=== PATIENT | female | born 1925 | race Caucasian/White ===

== ENCOUNTER 2016-09-20 09:08 | Emergency (ER) | payer MEDICARE ==
[2016-09-20 09:14] VITALS: BP 133/53
--- NOTE | 2016-09-20 10:57 | ED ---
Skin Complaint - HPI Summary HPI Summary: 89 female presents accompanied by daughter and aide with complaints of w laeration on her right lower leg that she sustained yesterday (>24hours) afternoon while trying to get into a car. Did not fall and did not hit head. Patient was not aware at the time until a few hours after when she got home and noticed blood on her shoe. Laceration was dressed however, it would not stop bleeding until this morning. Patient is on a blood thinner and was recently told her platelet count was low on her last CBC. Patient denies any pain and states it has just been oozing, and appeared to stop bleeding. Denies lightheadedness, dizziness, numbness/tingling, loss of sensation or ROM, headache, difficulty breathing and chest pain. She has no other complaints at this time except the lower right leg laceration. Denies swelling, discharge and fever/chills. - History of Current Complaint Chief Complaint: EDLacSutureRecheck Time Seen by Provider: 09/20/16 09:26 Stated Complaint: RT LEG LAC Hx Obtained From: Patient, Family/Blue Line Trimmer - daughter, aide Onset/Duration: Started Days Ago, Traumatic Skin Exposure Onset/Duration: Days Ago Timing: Constant Onset Severity: Mild Current Severity: Mild Pain Intensity: 0 Pain Scale Used: 0-10 Numeric Skin Location: Leg Aggravating Symptom(s): Touch Alleviating Symptom(s): Treatment SPECIAL TAX AUDITOR: - dressing wound Associated Signs & Symptoms: Negative - Additional Pertinent History Primary Care Physician: [id number] - Allergy/Home Medications Allergies/Adverse Reactions: Allergies Allergy/AdvReac Type Severity Reaction Status Date / Time Adhesive Tape Allergy Rash And Verified 02/20/16 20:59 Itching Cephalexin [From Keflex] Allergy Rash Verified 02/20/16 20:59 Iodine Allergy Rash Verified 02/20/16 20:59 Sulfa Drugs Allergy Unknown Verified 02/20/16 20:59 Reaction Details PMH/Surg Hx/FS Hx/Imm Hx Endocrine/Hematology History: Reports: Hx Diabetes, Hx Thyroid Disease - hypothyroid, levothyroxine am, Hx Anemia Cardiovascular History: Reports: Hx Angina, Hx Congestive Heart Failure, Hx Coronary Artery Disease, Hx Hypercholesterolemia, Hx Pacemaker/ICD, Hx Syncope, Other Cardiovascular Problems/Disorders Denies: Hx Hypotension, Hx Hypertension Respiratory History: Reports: Hx Asthma, Hx Pulmonary Embolism, Hx Seasonal Allergies Denies: Hx Chronic Obstructive Pulmonary Disease (COPD) GI History: Reports: Hx Gall Bladder Disease - Cholecystectomy, Hx Gastroesophageal Reflux Disease, Hx Gastrointestinal Bleed, Hx Ulcer Comment Only: Other GI Disorders - GASTRIC ULCER W/ HEMORRHAGE History: Reports: Hx Chronic Renal Failure, Other Problems/Disorders - LOW GFR RENAL INSUFFIENCY Denies: Hx Dialysis Musculoskeletal History: Reports: Hx Arthritis, Hx Osteoporosis, Other Musculoskeletal History - osteoarthritis Sensory History: Reports: Hx Contacts or Glasses, Hx Vision Problem, Hx Hearing Aid - hearing aides sent home with family, Hx Hearing Problem Opthamlomology History: Reports: Hx Contacts or Glasses, Hx Vision Problem Neurological History: Reports: Hx Dementia, Hx Headaches, Hx Migraine, Hx Transient Ischemic Attacks (TIA) Denies: Hx Developmental Delay, Hx Nerve Disease, Hx Seizures, Hx Spinal Cord Injury, Other Neuro Impairments/Disorders Psychiatric History: Denies: Hx Anxiety - Cancer History Hx Chemotherapy: No Hx Radiation Therapy: No - Surgical History Surgery Procedure, Year, and Place: bilateral knee replacement, breast reduction , stent placement, pacer placement, cholecystecomy, "stomach" surgery, Hx Anesthesia Reactions: No Infectious Disease History: No Infectious Disease History: Reports: Hx Shingles - 20 yrs ago Denies: Hx Clostridium Difficile, Hx Hepatitis, Hx Human Immunodeficiency Virus (HIV), Hx Tuberculosis, Traveled Outside the [place] in Last 30 Days - Family History Known Family History: Positive: Diabetes - Social History Alcohol Use: None Hx Substance Use: No Substance Use Type: Reports: None Hx Tobacco Use: No Smoking Status (MU): Never Smoked Tobacco Review of Systems Constitutional: Negative Cardiovascular: Negative Respiratory: Negative Gastrointestinal: Negative Musculoskeletal: Negative Positive: Other - laceration lower right leg Neurological: Negative Psychological: Normal All Other Systems Reviewed And Are Negative: Yes Physical Exam Triage Information Reviewed: Yes Vital Signs On Initial Exam: Initial Vitals Temp Pulse Resp BP Pulse Ox 97.1 F 81 18 133/53 97 09/20/16 09:09 09/20/16 09:09 09/20/16 09:09 09/20/16 09:09 09/20/16 09:09 Vital Signs Reviewed: Yes Appearance: Positive: Well-Appearing, No Pain Distress, Well-Nourished Skin: Positive: Warm, Skin Color Reflects Adequate Perfusion, Dry, Other - 5 cm long by 3 cm wide and 1cm deep skin avulsion on lower right distal leg, with skin flap still intact. erythematous without active bleeding. no tedon or fascia layers noted. no other avulsion or laceration noted. no discharge, or swelling, warm to touch.no obious defomity, bony tenderness or ecchymosis. Head/Face: Positive: Normal Head/Face Inspection Eyes: Positive: Normal ENT: Positive: Normal ENT inspection, Hearing grossly normal Neck: Positive: Supple, Nontender Respiratory/Lung Sounds: Positive: Clear to Auscultation, Breath Sounds Present Cardiovascular: Positive: Normal, RRR, Pulses are Symmetrical in both Upper and Lower Extremities - 2+ bilateraly pedal and radial. Negative: Leg Edema Left, Leg Edema Right Abdomen Description: Positive: Nontender Bowel Sounds: Positive: Present Musculoskeletal: Positive: Normal, Strength/ROM Intact, Pain @ - lower right leg skin avulsion on palpation. Negative: Limited @, Interruption @, Edema Left , Edema Right Neurological: Positive: Normal, Sensory/Motor Intact - sensation intact, Alert, Oriented to Person Place, Time, Reflexes Intact, NV Bundle Intact Distally, Normal Gait Procedures - Laceration/Wound Repair 1 Location: lower extremity - right distal leg Description: Irregular - skin avulsion in triangle shape Length, Depth and Shape: 5.cm long, 1cm deep, 3cm wide, skin avulsion Betadine Prep?: No Irrigated w/ Saline (ccs): 100 Laceration/Wound Explored: clean, no foreign body removed Closure: SteriStrips - and xeroform, dressed with telfa and ABD pad Sterile Dressing Applied?: Yes Diagnostics - Vital Signs Vital Signs Temp Pulse Resp BP Pulse Ox 09/20/16 09:09 97.1 F 81 18 133/53 97 - Laboratory Lab Statement: Any lab studies that have been ordered have been reviewed, and results considered in the medical decision making process. Course/Dx - Course Course Of Treatment: patient denied having her blood checked at this time. was advised to follow up with her PCP about low platelet count and chornic issues. Patient's tetanus UTD, after checking with PCP. Skin avulsion irrigated, steri- stripped and xeroform, telfa and ABD pad applied. dressed without complication. minimal to no bleeding from site. follow up. aware to return if bleeding recurs. aware of signs and symptoms to be aware of for infection and that she may benefit from going to a wound clinic if it does not appear to be healing properly. - Differential Diagnoses - Skin Complaint Differential Diagnoses: Cellulitis, Other - Diagnoses Provider Diagnoses: Avulsion of skin of right lower leg Discharge - Discharge Plan Condition: Stable Disposition: HOME Patient Education Materials: Skin Avulsion (ED) Referrals: Fawad Cho MD [Primary Care Provider] - Additional Instructions: Leave dressing on for 48 hours. Do not take steri strips off, let them come off on their own. Do not get area wet for 48 hours. Keep clean and dry. You may want to keep the area dressed after the original dressing is taken off. If bleeding recurs or soaks through current dressing please return or seek medical attention. Be sure to talk with her PCP about recent blood work and managing blood thinner. Watch for signs and symptoms of infection such as redness, discharge, swelling, fever/chills. If she starts to feel light headed, weak, dizzy or faint please seek medical attention promptly.
== END 2016-09-20 11:54 | disposition home or self-care (01) ==
LOC: ED 09:08
DX: S81.801A Unspecified open wound, right lower leg, initial encounter (principal); W22.8XXA Striking against or struck by other objects, initial encounter; Y93.9 Activity, unspecified; Y92.89 Other specified places as the place of occurrence of the external cause
CPT/HCPCS: 99281

== ENCOUNTER 2016-10-06 12:33 | Emergency (ER) | payer MEDICARE ==
[2016-10-06 13:56] LABS: Hematocrit 44 % (35-47); Hemoglobin 14.3 g/dl (12.0-16.0); Mean Corpuscular HGB Conc 33 g/dl (31-36); Mean Corpuscular Hemoglobin 30 pg (27-31); Mean Corpuscular Volume 92 fL (80-97); Mean Platelet Volume 8 um3 (7.4-10.4); Red Blood Count 4.72 10^6/ul (4.0-5.4); Red Cell Distribution Width 15 % (10.5-15); White Blood Count 7.1 10^3/ul (3.5-10.8)
[2016-10-06 14:15] LABS: Albumin 3.3 g/dL (3.2-5.2); BUN/Creatinine Ratio 23.6 (8-20); C Reactive Protein 12.96 mg/L (< 5.00); EGFR African American 52.9 (>60); EGFR Non-African American 41.1 (>60); Globulin 3.7 g/dL (2-4); Total Bilirubin 0.4 mg/dL (0.2-1.0)
--- NOTE | 2016-10-06 16:04 | RAD ---
Indication: Left-sided abdominal pain. CT of the abdomen and pelvis was performed without oral or IV contrast administration. Coronal and sagittal reconstructed images were obtained. Lung bases demonstrate no pleural fluid, nodules or masses. Heart is enlarged without evidence of pericardial effusion. Pacemaker leads are in place. The liver is normal in size. No focal lesions are noted. Patient is status post cholecystectomy. The spleen is normal in size. The pancreas demonstrates no mass or pancreatic duct dilatation. Patient is status post cholecystectomy. Bilateral adrenal hyperplasia is noted. No hydronephrosis of either kidney is noted. Atherosclerotic aorta is noted. Superior mesenteric artery is otherwise unremarkable. No dilated loops of bowel are noted. There is posterior abdominal wall hernia containing perinephric fat. Atherosclerotic aorta is noted. No dilated loops of bowel are noted. The urinary bladder is otherwise unremarkable. The bony structures are grossly unremarkable. Multilevel degenerative disc disease is noted. Overall no significant change is noted since February 20, 2016. IMPRESSION: Postsurgical change in the splenic hilum and gallbladder fossa. Patient is status post gastric bypass surgery. Right-sided superior lumbar triangle hernia containing fat and right kidney, unchanged since previous exam. Distended urinary bladder.
[2016-10-06 16:25] LABS: Potassium 4.6 mmol/L (3.5-5.0)
[2016-10-06 17:05] VITALS: BP 142/79
--- NOTE | 2016-10-06 22:20 | ED ---
Damaris Sims [place], scribed for Lamont Cabral MD on 10/06/16 at 1339 . Abdominal Pain/Female - HPI Summary HPI Summary: Patient is a 89 y/o female who presents to the ED with lower abd pain since last night. She reports a BM today, but denies diarrhea or tarry stool. She also denies nausea, vomiting, or problems urinating. Her caregiver present at bedside reports that pt has eaten breakfast and lunch and that she has been experiencing increased upper and lower gas. She also states pt has an extended abd on the right side with pain upon palpation, but pt also has a hernia on that side. Pt reports unspecified SHx of abd surgery. - History of Current Complaint Chief Complaint: EDAbdPain Stated Complaint: ABDOMINAL PAIN Time Seen by Provider: 10/06/16 13:26 Hx Obtained From: Patient, Family/Chemicals Fermentation Operator Onset/Duration: Gradual Onset, Lasting Days, Still Present Timing: Constant Severity Initially: Moderate Severity Currently: Moderate Pain Intensity: 5 Pain Scale Used: 0-10 Numeric Location: Discrete At: LUQ, Discrete At: LLQ Radiates: No Aggravating Factor(s): Nothing Alleviating Factor(s): Nothing Associated Signs and Symptoms: Positive: Other: - No tarry stool. Upper and lower gas.. Negative: Urinary Symptoms, Nausea, Vomiting, Diarrhea Allergies/Adverse Reactions: Allergies Allergy/AdvReac Type Severity Reaction Status Date / Time Adhesive Tape Allergy Rash And Verified 10/06/16 12:38 Itching Cephalexin [From Keflex] Allergy Rash Verified 10/06/16 12:38 Iodine Allergy Rash Verified 10/06/16 12:38 Sulfa Drugs Allergy Unknown Verified 10/06/16 12:38 Reaction Details Home Medications: Home Medications Amoxicillin CAP* [Amoxicillin 500 MG CAP*] 500 mg PO BID 10/06/16 [History Confirmed 10/06/16] Gabapentin TAB(NF) [Neurontin 600 mg TAB(NF)] 1,200 mg PO BEDTIME 10/06/16 [ History Confirmed 10/06/16] Gabapentin TAB(NF) [Neurontin 600 mg TAB(NF)] 600 mg PO BID 10/06/16 [History Confirmed 10/06/16] Levothyroxine TAB* [Synthroid TAB*] 150 mcg PO DAILY 10/06/16 [History Confirmed 10/06/16] Lidocaine PATCH 5%* [Lidoderm 5% Patch*] 1 patch TRANSDERM DAILY 10/06/16 [ History Confirmed 10/06/16] Nystatin TOP POWDER* 1 applic TOPICAL BID 10/06/16 [History Confirmed 10/06/16] Polyethylene Glycol 3350* [Miralax*] 17 gm PO DAILY PRN 10/06/16 [History Confirmed 10/06/16] Simvastatin TAB(NF) [Zocor(NF)] 20 mg PO BEDTIME 10/06/16 [History Confirmed 06/12] PMH/Surg Hx/FS Hx/Imm Hx Endocrine/Hematology History: Reports: Hx Diabetes, Hx Thyroid Disease - hypothyroid, levothyroxine am, Hx Anemia Cardiovascular History: Reports: Hx Angina, Hx Congestive Heart Failure, Hx Coronary Artery Disease, Hx Hypercholesterolemia, Hx Pacemaker/ICD, Hx Syncope, Other Cardiovascular Problems/Disorders Denies: Hx Hypotension, Hx Hypertension Respiratory History: Reports: Hx Asthma, Hx Pulmonary Embolism, Hx Seasonal Allergies Denies: Hx Chronic Obstructive Pulmonary Disease (COPD) GI History: Reports: Hx Gall Bladder Disease - Cholecystectomy, Hx Gastroesophageal Reflux Disease, Hx Gastrointestinal Bleed, Hx Ulcer Comment Only: Other GI Disorders - GASTRIC ULCER W/ HEMORRHAGE History: Reports: Hx Chronic Renal Failure, Other Problems/Disorders - LOW GFR RENAL INSUFFIENCY Denies: Hx Dialysis Musculoskeletal History: Reports: Hx Arthritis, Hx Osteoporosis, Other Musculoskeletal History - osteoarthritis Sensory History: Reports: Hx Contacts or Glasses, Hx Vision Problem, Hx Hearing Aid - hearing aides sent home with family, Hx Hearing Problem Opthamlomology History: Reports: Hx Contacts or Glasses, Hx Vision Problem Neurological History: Reports: Hx Dementia, Hx Headaches, Hx Migraine, Hx Transient Ischemic Attacks (TIA) Denies: Hx Developmental Delay, Hx Nerve Disease, Hx Seizures, Hx Spinal Cord Injury, Other Neuro Impairments/Disorders Psychiatric History: Denies: Hx Anxiety - Cancer History Hx Chemotherapy: No Hx Radiation Therapy: No - Surgical History Surgery Procedure, Year, and Place: bilateral knee replacement, breast reduction , stent placement, pacer placement, cholecystecomy, "stomach" surgery, Hx Anesthesia Reactions: No Infectious Disease History: No Infectious Disease History: Reports: Hx Shingles - 20 yrs ago Denies: Hx Clostridium Difficile, Hx Hepatitis, Hx Human Immunodeficiency Virus (HIV), Hx Tuberculosis, Traveled Outside the [place] in Last 30 Days - Family History Known Family History: Positive: Diabetes - Social History Alcohol Use: None Hx Substance Use: No Substance Use Type: Reports: None Hx Tobacco Use: No Smoking Status (MU): Never Smoked Tobacco Review of Systems Negative: Fever Positive: Abdominal Pain - Lower. . Negative: Vomiting, Diarrhea, Nausea Positive: other - No tarry stool. Increased upper and lower gas. Positive: Other - Constant pain in right hand for 2-3 days. All Other Systems Reviewed And Are Negative: Yes Physical Exam Triage Information Reviewed: Yes Vital Signs On Initial Exam: Initial Vitals Temp Pulse Resp BP Pulse Ox 98.1 F 87 16 133/56 100 10/06/16 12:38 10/06/16 12:38 10/06/16 12:38 10/06/16 12:38 10/06/16 12:38 Vital Signs Reviewed: Yes Appearance: Positive: Well-Appearing, No Pain Distress Skin: Positive: Warm, Skin Color Reflects Adequate Perfusion, Dry Head/Face: Positive: Normal Head/Face Inspection Eyes: Positive: Normal ENT: Positive: Other - DMM. Neck: Positive: Supple, Nontender Respiratory/Lung Sounds: Positive: Clear to Auscultation, Breath Sounds Present Cardiovascular: Positive: RRR Abdomen Description: Positive: Other: - Mildly tender on left more than right, diffusely. Bowel Sounds: Positive: Hyperactive Musculoskeletal: Positive: Normal Neurological: Positive: Normal Psychiatric: Positive: Normal, Affect/Mood Appropriate Diagnostics - Vital Signs Vital Signs Temp Pulse Resp BP Pulse Ox 10/06/16 12:38 98.1 F 87 16 133/56 100 - Laboratory Lab Results: Lab Results 10/06/16 10/06/16 10/06/16 Range/Units 13:45 13:45 13:45 WBC 7.1 (3.5-10.8) 10^3/ul RBC 4.72 (4.0-5.4) 10^6/ul Hgb 14.3 (12.0-16.0) g/dl Hct 44 (35-47) % MCV 92 (80-97) fL MCH 30 (27-31) pg MCHC 33 (31-36) g/dl RDW 15 (10.5-15) % Plt Count 141 L (150-450) 10^3/ul MPV 8 (7.4-10.4) um3 Neut % (Auto) 73.8 (38-83) % Lymph % (Auto) 16.1 L (25-47) % [place] % (Auto) 7.0 (1-9) % Eos % (Auto) 2.5 (0-6) % Baso % (Auto) 0.6 (0-2) % Absolute Neuts (auto) 5.2 (1.5-7.7) 10^3/ul Absolute Lymphs (auto) 1.1 (1.0-4.8) 10^3/ul Absolute Monos (auto) 0.5 (0-0.8) 10^3/ul Absolute Eos (auto) 0.2 (0-0.6) 10^3/ul Absolute Basos (auto) 0 (0-0.2) 10^3/ul Absolute Nucleated RBC 0.01 10^3/ul Nucleated RBC % 0.1 Sodium 136 (133-145) mmol/L Potassium 4.6 (3.5-5.0) mmol/L Chloride 102 (101-111) mmol/L Carbon Dioxide 28 (22-32) mmol/L Anion Gap 6 (2-11) mmol/L BUN 29 H (6-24) mg/dL Creatinine 1.23 H (0.51-0.95) mg/dL Est GFR ( Amer) 52.9 (>60) Est GFR (Non-Af Amer) 41.1 (>60) BUN/Creatinine Ratio 23.6 H (8-20) Glucose 151 H (70-100) mg/dL Lactic Acid 1.5 (0.5-2.0) mmol/L Calcium 10.0 (8.6-10.3) mg/dL Total Bilirubin 0.40 (0.2-1.0) mg/dL AST 25 (13-39) U/L ALT 11 (7-52) U/L Alkaline Phosphatase 86 (34-104) U/L C-Reactive Protein 12.96 H (< 5.00) mg/L Total Protein 7.0 (6.4-8.9) g/dL Albumin 3.3 (3.2-5.2) g/dL Globulin 3.7 (2-4) g/dL Albumin/Globulin Ratio 0.9 L (1-3) Lipase 40 (11.0-82.0) U/L Result Diagrams: 10/06/16 13:45 10/06/16 13:45 Lab Statement: Any lab studies that have been ordered have been reviewed, and results considered in the medical decision making process. - CT ABD/PELVIS CT Interpretation Completed By: Radiologist - Lung bases demonstrate no pleural fluid, nodules or masses. Heart is enlarged without evidence of pericardial effusion. Pacemaker leads are in place. The liver is normal in size. No focal lesions are noted. Patient is status post cholecystectomy. The spleen is normal in size. The pancreas demonstrates no mass or pancreatic duct dilatation. Patient is status post cholecystectomy. Bilateral adrenal hyperplasia is noted. No hydronephrosis of either kidney is noted. Atherosclerotic aorta is noted. Superior mesenteric artery is otherwise unremarkable. No dilated loops of bowel are noted. There is posterior abdominal wall hernia containing perinephric fat. Atherosclerotic aorta is noted. No dilated loops of bowel are noted. The urinary bladder is otherwise unremarkable. The bony structures are grossly unremarkable. Multilevel degenerative disc disease is noted. Overall no significant change is noted since February 20, 2016. Postsurgical change in the splenic hilum and gallbladder fossa. Patient is status post gastric bypass surgery. Right-sided superior lumbar triangle hernia containing fat and right kidney, unchanged since previous exam. Re-Evaluation - Re-Evaluation First Eval Re-Evaluation Time: 16:43 Abdominal Pain Fem Course/Dx - Course Course Of Treatment: Ms. Perla presented with some vague, diffuse lowere abdominal pain. Her labs were OK and she was noted on CT to have a distened bladder. When I went in to ask her about it, she reported that she had urinated about 10 minutes prior. A bladder scan at that time showed about 300 cc's. Her pain had at that point completely resolved and she was nontender. I don't think she needs a catheter at this point but she will need F/U. - Diagnoses Provider Diagnoses: Urinary retention Discharge - Discharge Plan Condition: Stable Disposition: HOME Patient Education Materials: Acute Urinary Retention in Women (ED) Referrals: Fawad Cho MD [Primary Care Provider] - Additional Instructions: Follow up with PCP. The documentation as recorded by the Damaris page [place] accurately reflects the service I personally performed and the decisions made by me, Lamont Cabral MD.
== END 2016-10-06 17:06 | disposition home or self-care (01) ==
LOC: ED 12:33
DX: R33.9 Retention of urine, unspecified (principal); E11.9 Type 2 diabetes mellitus without complications; E03.9 Hypothyroidism, unspecified; J45.909 Unspecified asthma, uncomplicated; K46.9 Unspecified abdominal hernia without obstruction or gangrene; Z88.2 Allergy status to sulfonamides
CPT/HCPCS: 36415; 74176; 80053; 83605; 83690; 85025; 86140; 99284

== ENCOUNTER 2016-11-23 18:49 | Emergency (ER) | payer BC ==
--- NOTE | 2016-11-23 19:52 | RAD ---
INDICATION: Fall COMPARISON: June 20, 2015 TECHNIQUE: PA and lateral dual-energy views were obtained. FINDINGS: Bones/Soft Tissues: There are no acute bony findings. There is a left-sided cardiac pacemaker. Cardiomediastinal: The cardiomediastinal silhouette is unchanged. There is right paratracheal prominence which may be related to ectatic vasculature or to the thyroid. Lungs: There are no infiltrates. Pleura: There are no pleural effusions. Other: There are clips in the epigastric region and left upper quadrant IMPRESSION: NO ACTIVE DISEASE.
[2016-11-23 20:45] LABS: Hematocrit 43 % (35-47); Hemoglobin 14.2 g/dl (12.0-16.0); Mean Corpuscular HGB Conc 33 g/dl (31-36); Mean Corpuscular Hemoglobin 30 pg (27-31); Mean Corpuscular Volume 93 fL (80-97); Mean Platelet Volume 8 um3 (7.4-10.4); Red Blood Count 4.67 10^6/ul (4.0-5.4); Red Cell Distribution Width 15 % (10.5-15); White Blood Count 7.1 10^3/ul (3.5-10.8)
[2016-11-23 20:59] LABS: BUN/Creatinine Ratio 23.9 (8-20); EGFR African American 47.9 (>60); EGFR Non-African American 37.2 (>60); Potassium 4.6 mmol/L (3.5-5.0)
[2016-11-23 21:01] LABS: Troponin I 0.01 ng/mL (<0.04)
--- NOTE | 2016-11-23 22:28 | ED ---
dhara Sims Timothy, scribed for Kenn Hannah MD on 11/23/16 at 1927 . Dizziness - HPI Summary HPI Summary: Jasmin Perla is an 89 yo female presenting to [facility] with 9/10 pain S/P a mechanical fall at 1600 today. Pt states she experienced dizziness all day in addition to MERCADO radiating down her neck and shoulder. She states she was getting into bed when she lost her balance and fell. She denies any head trauma. She also c/o generalized body aches. She normally uses a walker to get around. Her MHx includes hypothyroidism, Afib, Pacemaker, CAD, CHF, coronary stent, HLD, migraine, CVA, TIA, dementia, asthma, PE, seasonal allergies, GERD, ulcer, gall bladder disease, GI bleed, chronic renal failure (low GFR renal insufficiency), arthritis, osteoperosis, DM, anemia, shingles 20 years ago. - History Of Current Complaint Stated Complaint: FALL Time Seen by Provider: 11/23/16 19:23 Hx Obtained From: Patient Onset/Duration: Unknown Timing: Constant Severity Initially: Moderate Severity Currently: Moderate Character: Dizzy Associated Signs And Symptoms: Positive: Other: - mechanical fall, MERCADO, neck, left shoulder pain, myalgia - Allergies/Home Medications Allergies/Adverse Reactions: Allergies Allergy/AdvReac Type Severity Reaction Status Date / Time Adhesive Tape Allergy Rash And Verified 10/06/16 12:38 Itching Cephalexin [From Keflex] Allergy Rash Verified 10/06/16 12:38 Iodine Allergy Rash Verified 10/06/16 12:38 Sulfa Drugs Allergy Unknown Verified 10/06/16 12:38 Reaction Details PMH/Surg Hx/FS Hx/Imm Hx Endocrine/Hematology History: Reports: Hx Diabetes, Hx Thyroid Disease - hypothyroid, levothyroxine am, Hx Anemia Cardiovascular History: Reports: Hx Angina, Hx Congestive Heart Failure, Hx Coronary Artery Disease, Hx Hypercholesterolemia, Hx Pacemaker/ICD, Hx Syncope, Other Cardiovascular Problems/Disorders Denies: Hx Hypotension, Hx Hypertension Respiratory History: Reports: Hx Asthma, Hx Pulmonary Embolism, Hx Seasonal Allergies Denies: Hx Chronic Obstructive Pulmonary Disease (COPD) GI History: Reports: Hx Gall Bladder Disease - Cholecystectomy, Hx Gastroesophageal Reflux Disease, Hx Gastrointestinal Bleed, Hx Ulcer Comment Only: Other GI Disorders - GASTRIC ULCER W/ HEMORRHAGE History: Reports: Hx Chronic Renal Failure, Other Problems/Disorders - LOW GFR RENAL INSUFFIENCY Denies: Hx Dialysis Musculoskeletal History: Reports: Hx Arthritis, Hx Osteoporosis, Other Musculoskeletal History - osteoarthritis Sensory History: Reports: Hx Contacts or Glasses, Hx Vision Problem, Hx Hearing Aid - hearing aides sent home with family, Hx Hearing Problem Opthamlomology History: Reports: Hx Contacts or Glasses, Hx Vision Problem Neurological History: Reports: Hx Dementia, Hx Headaches, Hx Migraine, Hx Transient Ischemic Attacks (TIA) Denies: Hx Developmental Delay, Hx Nerve Disease, Hx Seizures, Hx Spinal Cord Injury, Other Neuro Impairments/Disorders Psychiatric History: Denies: Hx Anxiety - Cancer History Hx Chemotherapy: No Hx Radiation Therapy: No - Surgical History Surgery Procedure, Year, and Place: bilateral knee replacement, breast reduction , stent placement, pacer placement, cholecystecomy, "stomach" surgery, Hx Anesthesia Reactions: No Infectious Disease History: No Infectious Disease History: Reports: Hx Shingles - 20 yrs ago Denies: Hx Clostridium Difficile, Hx Hepatitis, Hx Human Immunodeficiency Virus (HIV), Hx Tuberculosis, Traveled Outside the [place] in Last 30 Days - Family History Known Family History: Positive: Cardiac Disease, Hypertension, Diabetes - Social History Alcohol Use: None Hx Substance Use: No Substance Use Type: Reports: None Hx Tobacco Use: No Smoking Status (MU): Never Smoked Tobacco Review of Systems Constitutional: Negative Eyes: Negative ENT: Negative Cardiovascular: Negative Respiratory: Negative Gastrointestinal: Negative Genitourinary: Negative Positive: Myalgia Skin: Negative Neurological: Other - dizziness Positive: Headache - radiating to left shoulder and neck Psychological: Normal All Other Systems Reviewed And Are Negative: Yes Physical Exam Triage Information Reviewed: Yes Vital Signs On Initial Exam: Initial Vitals Temp Pulse Resp BP Pulse Ox 98.3 F 83 20 147/75 96 11/23/16 19:15 11/23/16 19:15 11/23/16 19:15 11/23/16 19:15 11/23/16 19:15 Vital Signs Reviewed: Yes Appearance: Positive: Well-Appearing, No Pain Distress Skin: Positive: Warm Head/Face: Positive: Normal Head/Face Inspection Eyes: Positive: EOMI, PROSPER, Conjunctiva Clear ENT: Positive: Hearing grossly normal Neck: Positive: Supple, Nontender Respiratory/Lung Sounds: Positive: Clear to Auscultation, Breath Sounds Present Cardiovascular: Positive: RRR Abdomen Description: Positive: Nontender, Soft Bowel Sounds: Positive: Present Musculoskeletal: Positive: Strength/ROM Intact Neurological: Positive: Alert, Oriented to Person Place, Time Psychiatric: Positive: Affect/Mood Appropriate Diagnostics - Vital Signs Vital Signs Temp Pulse Resp BP Pulse Ox 11/23/16 19:15 98.3 F 83 20 147/75 96 - Laboratory Lab Results: Lab Results 11/23/16 11/23/16 Range/Units 20:37 20:37 WBC 7.1 (3.5-10.8) 10^3/ul RBC 4.67 (4.0-5.4) 10^6/ul Hgb 14.2 (12.0-16.0) g/dl Hct 43 (35-47) % MCV 93 (80-97) fL MCH 30 (27-31) pg MCHC 33 (31-36) g/dl RDW 15 (10.5-15) % Plt Count 112 L (150-450) 10^3/ul MPV 8 (7.4-10.4) um3 Neut % (Auto) 69.7 (38-83) % Lymph % (Auto) 16.9 L (25-47) % Donley % (Auto) 9.5 H (1-9) % Eos % (Auto) 2.7 (0-6) % Baso % (Auto) 1.2 (0-2) % Absolute Neuts (auto) 5.0 (1.5-7.7) 10^3/ul Absolute Lymphs (auto) 1.2 (1.0-4.8) 10^3/ul Absolute Monos (auto) 0.7 (0-0.8) 10^3/ul Absolute Eos (auto) 0.2 (0-0.6) 10^3/ul Absolute Basos (auto) 0.1 (0-0.2) 10^3/ul Absolute Nucleated RBC 0.01 10^3/ul Nucleated RBC % 0.1 Sodium 137 (133-145) mmol/L Potassium 4.6 (3.5-5.0) mmol/L Chloride 102 (101-111) mmol/L Carbon Dioxide 32 (22-32) mmol/L Anion Gap 3 (2-11) mmol/L BUN 32 H (6-24) mg/dL Creatinine 1.34 H (0.51-0.95) mg/dL Est GFR ( Amer) 47.9 (>60) Est GFR (Non-Af Amer) 37.2 (>60) BUN/Creatinine Ratio 23.9 H (8-20) Glucose 137 H (70-100) mg/dL Calcium 10.0 (8.6-10.3) mg/dL Troponin I 0.01 (<0.04) ng/mL Result Diagrams: 11/23/16 20:37 11/23/16 20:37 Lab Statement: Any lab studies that have been ordered have been reviewed, and results considered in the medical decision making process. - Radiology CXR Xray Interpretation: No Acute Changes - IMPRESSION: NO ACTIVE DISEASE. Radiology Interpretation Completed By: Radiologist - EKG 1920 Cardiac Rate: NL - 83 BPM EKG Interpretation: Afib @ 83 BPM, moderated ventrivular response Dizzy Course/Dx - Course Assessment/Plan: Jasmin Perla is an 89 yo female presenting to [facility] with 9/ 10 pain S/P a mechanical fall at 1600 today, with MERCADO radiating to her neck and left shoulder and dizziness since this morning. Her EKG suggests Afib and moderated ventricular response. Her CXR suggests no active disease. After clinical examination and review of her imaging and lab studies, she will be discharged home with dizziness with appropriate instructions. - Diagnoses Provider Diagnoses: Dizziness Discharge - Discharge Plan Condition: Improved Disposition: HOME Patient Education Materials: Dizziness (ED) Referrals: Fawad Cho MD [Primary Care Provider] - 2 Days Additional Instructions: Please follow up with your primary care physician regarding your visit to the emergency department today. Return to the emergency department with any new or recurring symptoms. The documentation as recorded by the dhara page Timothy accurately reflects the service I personally performed and the decisions made by me, Kenn Hannah MD.
[2016-11-23 22:55] VITALS: BP 155/69
== END 2016-11-24 00:05 | disposition home or self-care (01) ==
LOC: ED 18:49
DX: R42 Dizziness and giddiness (principal); E03.9 Hypothyroidism, unspecified; J44.9 Chronic obstructive pulmonary disease, unspecified; F03.90 Unspecified dementia, unspecified severity, without behavioral disturbance, psychotic disturbance, mood disturbance, and anxiety; W19.XXXA Unspecified fall, initial encounter; I48.91 Unspecified atrial fibrillation; Z95.0 Presence of cardiac pacemaker; I50.9 Heart failure, unspecified; E78.5 Hyperlipidemia, unspecified; Z88.2 Allergy status to sulfonamides; Z86.73 Personal history of transient ischemic attack (TIA), and cerebral infarction without residual deficits
CPT/HCPCS: 36415; 71020; 80048; 84484; 85025; 93005; 99283

== ENCOUNTER 2017-01-09 22:05 | Emergency (ER) | payer MEDICARE, BC ==
[2017-01-09] MEDS ORDERED: NS 0.9% 1000 ML* 1,000 ML IV ONE (22:28)
[2017-01-09 22:47] LABS: Hematocrit 42 % (35-47); Hemoglobin 13.9 g/dl (12.0-16.0); Mean Corpuscular HGB Conc 33 g/dl (31-36); Mean Corpuscular Hemoglobin 31 pg (27-31); Mean Corpuscular Volume 95 fL (80-97); Mean Platelet Volume 8 um3 (7.4-10.4); Red Blood Count 4.46 10^6/ul (4.0-5.4); Red Cell Distribution Width 15 % (10.5-15); White Blood Count 7.1 10^3/ul (3.5-10.8)
--- NOTE | 2017-01-09 22:54 | ED ---
Chrissie Sims Rebecca, scribed for Kenn Hannah MD on 01/09/17 at 2233 . Dizziness - HPI Summary HPI Summary: Pt is an 89 y/o F BIBA who presents to ED c/o worsening dizziness, "feeling fuzzy" and generalized weakness. Sx have been gradually worsening in the past month, particularly today. Cites multiple recent mechanical falls, which is unusual for her. Tonight, she was trying to get into bed and did not raise her leg up enough, falling backwards. Negative LOC. Negative memory loss. Pt c/o moderate L buttock pain s/p fall. Pain began immediately after fall and has been constant since onset. Sx aggravated and alleviated by nothing. Confirms walker use during fall. She lives alone and has a daughter that regularly helps out at home. - History Of Current Complaint Chief Complaint: EDExtremityLower Stated Complaint: WEAKNESS Time Seen by Provider: 01/09/17 22:22 Hx Obtained From: Patient Onset/Duration: Still Present, Gradually Character: Weak, Dizzy Aggravating Factor(s): Nothing Alleviating Factor(s): Nothing Associated Signs And Symptoms: Positive: Other: - Generalized weakness; L buttock pain; "feeling fuzzy" - Allergies/Home Medications Allergies/Adverse Reactions: Allergies Allergy/AdvReac Type Severity Reaction Status Date / Time Adhesive Tape Allergy Rash And Verified 10/06/16 12:38 Itching Cephalexin [From Keflex] Allergy Rash Verified 10/06/16 12:38 Iodine Allergy Rash Verified 10/06/16 12:38 Sulfa Drugs Allergy Unknown Verified 10/06/16 12:38 Reaction Details Home Medications: Home Medications Bumatanide 2 mg PO DAILY 01/10/17 [History Confirmed 01/10/17] Oxycodone 5 mg PO PRN 01/10/17 [History] PMH/Surg Hx/FS Hx/Imm Hx Endocrine/Hematology History: Reports: Hx Diabetes, Hx Thyroid Disease - hypothyroid, levothyroxine am, Hx Anemia Cardiovascular History: Reports: Hx Angina, Hx Congestive Heart Failure, Hx Coronary Artery Disease, Hx Hypercholesterolemia, Hx Pacemaker/ICD, Hx Syncope, Other Cardiovascular Problems/Disorders Denies: Hx Hypotension, Hx Hypertension Respiratory History: Reports: Hx Asthma, Hx Pulmonary Embolism, Hx Seasonal Allergies Denies: Hx Chronic Obstructive Pulmonary Disease (COPD) GI History: Reports: Hx Gall Bladder Disease - Cholecystectomy, Hx Gastroesophageal Reflux Disease, Hx Gastrointestinal Bleed, Hx Ulcer Comment Only: Other GI Disorders - GASTRIC ULCER W/ HEMORRHAGE History: Reports: Hx Chronic Renal Failure, Other Problems/Disorders - LOW GFR RENAL INSUFFIENCY Denies: Hx Dialysis Musculoskeletal History: Reports: Hx Arthritis, Hx Osteoporosis, Other Musculoskeletal History - osteoarthritis Sensory History: Reports: Hx Contacts or Glasses, Hx Vision Problem, Hx Hearing Aid - hearing aides sent home with family, Hx Hearing Problem Opthamlomology History: Reports: Hx Contacts or Glasses, Hx Vision Problem Neurological History: Reports: Hx Dementia, Hx Headaches, Hx Migraine, Hx Transient Ischemic Attacks (TIA) Denies: Hx Developmental Delay, Hx Nerve Disease, Hx Seizures, Hx Spinal Cord Injury, Other Neuro Impairments/Disorders Psychiatric History: Denies: Hx Anxiety - Cancer History Hx Chemotherapy: No Hx Radiation Therapy: No - Surgical History Surgery Procedure, Year, and Place: bilateral knee replacement, breast reduction , stent placement, pacer placement, cholecystecomy, "stomach" surgery, Hx Anesthesia Reactions: No Infectious Disease History: Reports: Hx Shingles - 20 yrs ago Denies: Hx Clostridium Difficile, Hx Hepatitis, Hx Human Immunodeficiency Virus (HIV), Hx Tuberculosis, Traveled Outside the [place] in Last 30 Days - Family History Known Family History: Positive: Cardiac Disease, Hypertension, Diabetes - Social History Lives: Alone Alcohol Use: None Hx Substance Use: No Substance Use Type: Reports: None Hx Tobacco Use: No Smoking Status (MU): Never Smoked Tobacco Review of Systems Positive: Other - Generalized weakness, "feeling fuzzy" Positive: Arthralgia - Moderate L buttock pain s/p mechanical fall Neurological: Other - Dizziness; Negative LOC and memory loss All Other Systems Reviewed And Are Negative: Yes Physical Exam Triage Information Reviewed: Yes Vital Signs On Initial Exam: Initial Vitals Temp Pulse Resp BP Pulse Ox 98 F 71 16 135/49 97 01/09/17 22:43 01/09/17 22:43 01/09/17 22:43 01/09/17 22:43 01/09/17 22:43 Vital Signs Reviewed: Yes Appearance: Positive: Well-Appearing, No Pain Distress Skin: Positive: Warm Head/Face: Positive: Normal Head/Face Inspection Eyes: Positive: PROSPER ENT: Positive: Hearing grossly normal Neck: Positive: Supple Respiratory/Lung Sounds: Positive: Clear to Auscultation, Breath Sounds Present Cardiovascular: Positive: RRR Abdomen Description: Positive: Nontender, Soft Bowel Sounds: Positive: Present Musculoskeletal: Positive: Strength/ROM Intact Neurological: Positive: Alert, Oriented to Person Place, Time AVPU Assessment: Alert Diagnostics - Vital Signs Vital Signs Temp Pulse Resp BP Pulse Ox 01/09/17 22:43 98 F 71 16 135/49 97 - Laboratory Result Diagrams: 01/09/17 22:40 01/09/17 22:40 Lab Statement: Any lab studies that have been ordered have been reviewed, and results considered in the medical decision making process. - Radiology CXR Xray Interpretation: No Acute Changes Radiology Interpretation Completed By: ED Physician Pelvic XR Xray Interpretation: No Acute Changes Radiology Interpretation Completed By: ED Physician Re-Evaluation - Re-Evaluation First Eval Re-Evaluation Time: 00:22 Change: Unchanged Comment: Discussed XR results with the pt who reports "I don't feel good." Second Eval Re-Evaluation Time: 00:40 Change: Unchanged Comment: Does not want to try to walk so she will be admitted to intermediate services. Third Eval Re-Evaluation Time: 03:00 Comment: pt does not want to be admitted, stated will kill herself if she goes home, for mhe Dizzy Course/Dx - Course Assessment/Plan: Pt is an 89 y/o F BIBA who presents to ED c/o worsening dizziness, "feeling fuzzy" and generalized weakness for the past month, particularly today. Cites multiple recent mechanical falls, which is unusual for her. Tonight, she was trying to get into bed and did not raise her leg up enough, falling backwards. Negative LOC. Negative memory loss. Pt c/o L buttock pain s/p fall. Pelvic and CXR both reveal no acute findings. Pt refused to attempt to ambulate with her walker. Discussed care of pt with Dr. Hahn who accepts pt for admission. She will be admitted with a Dx of weakness. When talking to Dr. Hahn, she expressed that she would no longer like to be admitted and refused to pay for it. In previous discussions, she reported that if she went home, she would overdose. Mental health was contacted. Patient will be signed out, pending dispo, awaiting MHE. - Diagnoses Provider Diagnoses: Weakness - Provider Notifications Discussed Care Of Patient With: Kadeem Hahn Time Discussed With Above Provider: 00:52 Instructed by Provider To: Other - Accepts pt for admission Discharge - Discharge Plan Condition: Stable Disposition: OTHER Discharge Disposition Comment: Pt will be signed out, pending dispo, awaiting MHE. Referrals: Fawad Cho MD [Primary Care Provider] - The documentation as recorded by the Chrissie page Rebecca accurately reflects the service I personally performed and the decisions made by me, Kenn Hannah MD.
[2017-01-09 23:03] LABS: Albumin 3.2 g/dL (3.2-5.2); BUN/Creatinine Ratio 16.2 (8-20); Calcium 9.8 mg/dL (8.6-10.3); EGFR African American 44.8 (>60); EGFR Non-African American 34.8 (>60); Globulin 3.5 g/dL (2-4); Magnesium 2.1 mg/dL (1.9-2.7); Total Bilirubin 0.4 mg/dL (0.2-1.0); Total Protein 6.7 g/dL (6.4-8.9)
[2017-01-09 23:04] LABS: Troponin I 0.01 ng/mL (<0.04)
[2017-01-09 23:18] LABS: TSH (Thyroid Stimulating Horm) 2.09 mcIU/mL (0.34-5.60)
[2017-01-10] MEDS ORDERED: fentaNYL PATCH 50 MCG/HR TRANSDERM SCH (02:00)
[2017-01-10 03:35] LABS: Urine Bacteria 1+ (Absent); Urine Bilirubin Negative (Negative); Urine Glucose Negative (Negative); Urine Nitrite Negative (Negative)
[2017-01-10] MEDS ORDERED: Omeprazole CAP* 20 MG PO SCH (07:30)
--- NOTE | 2017-01-10 07:43 | RAD ---
INDICATION: Weakness COMPARISON: November 23, 2016 TECHNIQUE: PA and lateral dual-energy views were obtained. FINDINGS: Bones/Soft Tissues: There are no acute bony findings. There is left-sided cardiac pacemaker. Cardiomediastinal: The cardiomediastinal silhouette is normal. Lungs: There are no infiltrates. Pleura: There are no pleural effusions. Other: There are multiple surgical clips in the right and left upper abdomen IMPRESSION: NO ACTIVE CARDIOPULMONARY DISEASE.
--- NOTE | 2017-01-10 07:48 | RAD ---
INDICATION: Fall. Pain COMPARISON: CT October 06, 2016 TECHNIQUE: A single AP view of the pelvis is submitted. FINDINGS: Osseous structures: No acute findings. Moderate osteocytic change about both hips SI joints and symphysis: Intact Soft tissues: Brown catheter. Surgical clips minor pelvis. Other: None IMPRESSION: NO ACUTE BONY FINDINGS. OSTEOARTHRITIS ABOUT THE HIPS.
[2017-01-10] MEDS ORDERED: Furosemide TAB* 20 MG PO SCH (09:00)
[2017-01-10] MEDS ORDERED: Gabapentin CAP(*) 300 MG PO SCH (09:00)
[2017-01-10] MEDS ORDERED: BUMETANIDE 2 MG PO SCH (09:00)
[2017-01-10] MEDS ORDERED: Dabigatran CAP(NF) 75 MG CAP PO SCH (09:00)
[2017-01-10] MEDS ORDERED: Levothyroxine TAB* 150 MCG TAB PO SCH (09:00)
[2017-01-10] MEDS ORDERED: Lisinopril TAB* 5 MG PO SCH (09:00)
[2017-01-10] MEDS ORDERED: Lidocaine PATCH 5%* 1 PATCH TRANSDERM SCH (09:00)
[2017-01-10 09:42] VITALS: BP 110/46
--- NOTE | 2017-01-10 18:52 | ED ---
I, Dunia Mancera, scribed for Minor Cordova MD on 01/10/17 at 1021 . Progress - Progress Note Progress Note: Signed out from Dr. Hannah. Pt is cleared by MHE, and considered safe for discharge. Plan of care is discussed with daughter, and she agrees to increase the aid service at home. - Consult/PCP Time Called: 05:30 Re-Evaluation - Re-Evaluation First Eval Re-Evaluation Time: 00:22 Change: Unchanged Comment: Discussed XR results with the pt who reports "I don't feel good." Second Eval Re-Evaluation Time: 00:40 Change: Unchanged Comment: Does not want to try to walk so she will be admitted to group home services. Third Eval Re-Evaluation Time: 03:00 Comment: pt does not want to be admitted, stated will kill herself if she goes home, for mhe Course/Dx - Diagnoses Provider Diagnoses: Weakness - Provider Notifications Time Discussed With Above Provider: 00:52 Instructed by Provider To: Other - Accepts pt for admission The documentation as recorded by the leightonibCalderon vilchis Soohyun accurately reflects the service I personally performed and the decisions made by me, Minor Cordova MD.
[2017-01-10] MEDS ORDERED: Donepezil TAB* 5 MG PO SCH (21:00)
[2017-01-10] MEDS ORDERED: Atorvastatin* 10 MG TAB PO SCH (21:00)
[2017-01-10] MEDS ORDERED: Lidocaine Patch REMOVE* 1 NOTE MISC PATCH OFF SCH (21:00)
[2017-01-10] MEDS ORDERED: Gabapentin TAB(NF) 600 MG PO SCH (21:00)
--- NOTE | 2017-01-12 14:35 | PN ---
Progress Note - Progress Note Date of Service: 01/10/17 Note: Patient was here for a MHE without symptoms or complaints other than MH. Preliminary results show >100,000 of E. Coli. no d/c on any medication. Will await final urine culture susceptibility results prior to starting treatment as she did not have symptoms.
== END 2017-01-10 10:43 ==
LOC: ED 22:05
DX: R53.1 Weakness (principal); K62.89 Other specified diseases of anus and rectum
CPT/HCPCS: 36415; 71020; 72170; 80053; 81003; 81015; 82550; 83605; 83735; 84443; 84484; 85025; 87077; 87086; 87186; 99285

== ENCOUNTER 2017-02-15 14:20 | Inpatient (IN) | payer MEDICARE ==
--- NOTE | 2017-02-15 15:53 | RAD ---
INDICATION: Altered mental status COMPARISON: Similar CT of the brain dated September 26, 2013 TECHNIQUE: Contiguous axial sections of the brain were obtained from the skull base to the vertex without contrast. FINDINGS: The ventricles, cisterns and sulci exhibit symmetrical involutional changes similar in appearance to the previous CT of the brain. There is moderate periventricular and subcortical white matter hypoattenuation most consistent with chronic microvascular disease. There is a more confluent area of hypoattenuation at the anterior limb of the right internal capsule and basal ganglia that is unchanged from the previous CT of the brain. Elsewhere the goddard-white matter differentiation is adequately maintained and there is no sulcal effacement. No significant focal abnormality or mass effect is present. There is no evidence for intracranial hemorrhage. There is coarse atherosclerotic calcification at the bilateral vertebral arteries and the petrous carotid arteries. No significant focal osseous abnormality is present. The visualized portion of the paranasal sinuses and mastoid air cells appear clear. IMPRESSION: Chronic findings as described above without acute intracranial abnormality.
--- NOTE | 2017-02-15 16:26 | RAD ---
HISTORY: proximal femur swelling COMPARISONS: Pelvis dated January 09, 2017, left knee dated March 26, 2015 VIEWS: 10, frontal views of the pelvis with frontal and crosstable lateral views of the left femur FINDINGS: BONE DENSITY: Normal. BONES: The patient is status post left knee arthroplasty. Again noted is a periprosthetic lucency of the tibial component with angulation. This is similar to the previous examination, though not well evaluated. JOINTS: There is osteoarthritis of the left hip. There is left knee arthroplasty. ALIGNMENT: There is no dislocation. SOFT TISSUES: Unremarkable. OTHER FINDINGS: Degenerative changes are noted of the spine IMPRESSION: 1. STATUS POST LEFT KNEE ARTHROPLASTY WITH PERIPROSTHETIC LUCENCY OF THE TIBIAL COMPONENT. 2. OSTEOARTHRITIS OF THE LEFT HIP. 3. NO ACUTE OSSEOUS INJURY. IF SYMPTOMS PERSIST, RECOMMEND REPEAT IMAGING
[2017-02-15 16:37] LABS: Urine Bacteria 1+ (Absent); Urine Bilirubin Negative (Negative); Urine Glucose Negative (Negative); Urine Nitrite Negative (Negative)
[2017-02-15] MEDS ORDERED: Levofloxacin 500 MG IVPREMIX(* 500 MG/100 ML BAG IVPB ONE (16:52)
[2017-02-15 17:05] LABS: Hematocrit 41 % (35-47); Hemoglobin 13.5 g/dl (12.0-16.0); Mean Corpuscular HGB Conc 33 g/dl (31-36); Mean Corpuscular Hemoglobin 31 pg (27-31); Mean Corpuscular Volume 94 fL (80-97); Mean Platelet Volume 8 um3 (7.4-10.4); Red Blood Count 4.37 10^6/ul (4.0-5.4); Red Cell Distribution Width 15 % (10.5-15); White Blood Count 5.8 10^3/ul (3.5-10.8)
[2017-02-15 17:22] LABS: Albumin 3.1 g/dL (3.2-5.2); BUN/Creatinine Ratio 20.6 (8-20); Calcium 9.9 mg/dL (8.6-10.3); EGFR African American 40.5 (>60); EGFR Non-African American 31.5 (>60); Globulin 3.5 g/dL (2-4); Potassium 4.6 mmol/L (3.5-5.0); Total Bilirubin 0.4 mg/dL (0.2-1.0); Total Protein 6.6 g/dL (6.4-8.9)
--- NOTE | 2017-02-15 17:35 | RAD ---
INDICATION: Swelling at the proximal femur COMPARISON: Similar chest x-ray dated January 09, 2017 TECHNIQUE: Single AP view of the chest was obtained. FINDINGS: Postoperative findings unchanged in the previous chest x-ray included left upper chest cardiac pacemaker with a proximal portion of the cardiac lead looped in the left internal jugular vein and surgical clips overlying the abdomen. The heart and mediastinum exhibit normal size and contour. The lungs are grossly clear. There is no evidence of a large pleural effusion. Visualized bones are normal for the patient's age. IMPRESSION: No radiographic evidence for acute cardiopulmonary abnormality on this single AP view chest x-ray.
[2017-02-15] MEDS ORDERED: Acetaminophen TAB* 325 MG PO PRN (18:18)
[2017-02-15] MEDS ORDERED: Dextrose 50% Syringe 50 ML* 25 GM/50 ML SYRINGE IV PUSH PRN (18:21)
[2017-02-15] MEDS: fentaNYL Patch Check Q Shift 1 NOTE SCH (19:28)
[2017-02-15] MEDS: fentaNYL PATCH 50 MCG/HR TRANSDERM SCH (19:29)
--- NOTE | 2017-02-15 20:39 | ED ---
Chrissie Sims Rebecca, scribed for Len Silveira MD on 02/15/17 at 1453 . Complex/Multi-Sys Presentation - HPI Summary HPI Summary: Pt is an 89 y/o F BIBA who presents to ED s/p episode of AMS LUNCHROOM AIDE. Daughter reports that when she visited her at 1245 she p/w confusion, dizziness and possible facial droop. She was last seen normal at 0830 when her nurse fed her breakfast. Daughter reports that the episode lasted approximately 1 hour after she first noticed it and that she is now back to baseline. Daughter is unsure of exact onset of sx, as she was not seen between 830 and 1245. Daughter additionally reports a lump on the L hip. No recent trauma. Recent Dx of UTI which is being treated with Cipro, starting 4 days ago. All Hx obtained from daughter as Hx is unobtainable from pt secondary to dementia. - History Of Current Complaint Chief Complaint: EDGeneral Time Seen by Provider: 02/15/17 14:50 Hx Obtained From: Family/Prn Physical Therapist - Daughter Onset/Duration: Resolved Severity Currently: None Aggravating Factor(s): Nothing Alleviating Factor(s): AMS - spontaneous resolution Associated Signs And Symptoms: Positive: Confusion - resolved, Dizziness - resolved, Other - Facial droop - resolved Related History: Recent Illness - UTI - Tx of Cipro - Allergies/Home Medications Allergies/Adverse Reactions: Allergies Allergy/AdvReac Type Severity Reaction Status Date / Time Adhesive Tape Allergy Rash And Verified 10/06/16 12:38 Itching Cephalexin [From Keflex] Allergy Rash Verified 10/06/16 12:38 Iodine Allergy Rash Verified 10/06/16 12:38 Sulfa Drugs Allergy Unknown Verified 10/06/16 12:38 Reaction Details PMH/Surg Hx/FS Hx/Imm Hx Endocrine/Hematology History: Reports: Hx Diabetes, Hx Thyroid Disease - hypothyroid, levothyroxine am, Hx Anemia Cardiovascular History: Reports: Hx Angina, Hx Congestive Heart Failure, Hx Coronary Artery Disease, Hx Hypercholesterolemia, Hx Pacemaker/ICD, Hx Syncope, Other Cardiovascular Problems/Disorders Denies: Hx Hypotension, Hx Hypertension Respiratory History: Reports: Hx Asthma, Hx Pulmonary Embolism, Hx Seasonal Allergies Denies: Hx Chronic Obstructive Pulmonary Disease (COPD) GI History: Reports: Hx Gall Bladder Disease - Cholecystectomy, Hx Gastroesophageal Reflux Disease, Hx Gastrointestinal Bleed, Hx Ulcer Comment Only: Other GI Disorders - GASTRIC ULCER W/ HEMORRHAGE History: Reports: Hx Chronic Renal Failure, Other Problems/Disorders - LOW GFR RENAL INSUFFIENCY Denies: Hx Dialysis Musculoskeletal History: Reports: Hx Arthritis, Hx Osteoporosis, Other Musculoskeletal History - osteoarthritis Sensory History: Reports: Hx Contacts or Glasses, Hx Vision Problem, Hx Hearing Aid - hearing aides sent home with family, Hx Hearing Problem Opthamlomology History: Reports: Hx Contacts or Glasses, Hx Vision Problem Neurological History: Reports: Hx Dementia, Hx Headaches, Hx Migraine, Hx Transient Ischemic Attacks (TIA) Denies: Hx Developmental Delay, Hx Nerve Disease, Hx Seizures, Hx Spinal Cord Injury, Other Neuro Impairments/Disorders Psychiatric History: Denies: Hx Anxiety, Hx Eating Disorder, Hx of Violent Episodes Against Others - Cancer History Hx Chemotherapy: No Hx Radiation Therapy: No - Surgical History Surgery Procedure, Year, and Place: bilateral knee replacement, breast reduction , stent placement, pacer placement, cholecystecomy, "stomach" surgery, Hx Anesthesia Reactions: No Infectious Disease History: No Infectious Disease History: Reports: Hx Shingles - 20 yrs ago Denies: Hx Clostridium Difficile, Hx Hepatitis, Hx Human Immunodeficiency Virus (HIV), Hx Tuberculosis, Traveled Outside the [place] in Last 30 Days - Family History Known Family History: Positive: Cardiac Disease, Hypertension, Diabetes - Social History Alcohol Use: None Hx Substance Use: No Substance Use Type: Reports: None Hx Tobacco Use: No Smoking Status (MU): Never Smoked Tobacco Review of Systems Positive: Other - Lump on the left hip Neurological: Other - Episode of confusion, dizziness, and possible facial droop - resolved All Other Systems Reviewed And Are Negative: Yes Physical Exam Triage Information Reviewed: Yes Vital Signs On Initial Exam: Initial Vitals Temp Pulse Resp BP Pulse Ox 97.9 F 75 18 80/32 94 02/15/17 14:46 02/15/17 14:46 02/15/17 14:46 02/15/17 14:46 02/15/17 14:46 Vital Signs Reviewed: Yes Appearance: Positive: Well-Appearing, No Pain Distress Skin: Positive: Warm Head/Face: Positive: Normal Head/Face Inspection Eyes: Positive: EOMI Neck: Positive: Supple, Nontender Respiratory/Lung Sounds: Positive: Clear to Auscultation, Breath Sounds Present Cardiovascular: Positive: RRR. Negative: Murmur Abdomen Description: Positive: Nontender Musculoskeletal: Positive: Strength/ROM Intact Neurological: Positive: Sensory/Motor Intact, Alert, Oriented to Person Place, Time, CN Intact II-III, Speech Normal Psychiatric: Positive: Normal - [place] Coma Scale Best Eye Response: 4 - Spontaneous Best Motor Response: 6 - Obeys Commands Best Verbal Response: 5 - Oriented Diagnostics - Vital Signs Vital Signs Temp Pulse Resp BP Pulse Ox 02/15/17 14:46 97.9 F 75 18 80/32 94 - Laboratory Lab Results: Lab Results 02/15/17 Range/Units 16:15 Urine Color Yellow Urine Appearance Clear Urine pH 5.0 (5-9) Ur Specific Cook Sta 1.011 (1.010-1.030) Urine Protein Negative (Negative) Urine Ketones Negative (Negative) Urine Blood 1+ H (Negative) Urine Nitrate Negative (Negative) Urine Bilirubin Negative (Negative) Urine Urobilinogen Negative (Negative) Ur Leukocyte Esterase 2+ H (Negative) Urine WBC (Auto) 2+(11-20/hpf) H (Absent) Urine RBC (Auto) Trace(0-2/hpf) (Absent) Ur Squamous Epith Cells Present H (Absent) Urine Bacteria 1+ H (Absent) Hyaline Casts Present H (Absent) Urine Glucose Negative (Negative) Result Diagrams: 02/15/17 16:45 02/15/17 16:45 Lab Statement: Any lab studies that have been ordered have been reviewed, and results considered in the medical decision making process. - Radiology Femur XR Xray Interpretation: No Acute Changes - 1. STATUS POST LEFT KNEE ARTHROPLASTY WITH PERIPROSTHETIC LUCENCY OF THE TIBIAL COMPONENT. 2. OSTEOARTHRITIS OF THE LEFT HIP. 3. NO ACUTE OSSEOUS INJURY. IF SYMPTOMS PERSIST, RECOMMEND REPEAT IMAGING Radiology Interpretation Completed By: Radiologist L Hip and Pelvis XR Xray Interpretation: No Acute Changes - 1. STATUS POST LEFT KNEE ARTHROPLASTY WITH PERIPROSTHETIC LUCENCY OF THE TIBIAL COMPONENT. 2. OSTEOARTHRITIS OF THE LEFT HIP. 3. NO ACUTE OSSEOUS INJURY. IF SYMPTOMS PERSIST, RECOMMEND REPEAT IMAGING Radiology Interpretation Completed By: Radiologist CXR Xray Interpretation: No Acute Changes - No radiographic evidence for acute cardiopulmonary abnormality on this single AP view chest x-ray. Radiology Interpretation Completed By: Radiologist - CT Brain CT CT Interpretation: No Acute Changes - Chronic findings as described above without acute intracranial abnormality. CT Interpretation Completed By: Radiologist Complex Multi-Symp Course/Dx Course Of Treatment: 89 yr old female with AMS, UTI and TIA symptoms. She will be admitted to the hospitalists. Case discussed with Dr Liu, neurology and also Dr Disla, hospitalist. - Diagnoses Provider Diagnoses: TIA (transient ischemic attack), UTI (urinary tract infection), Altered mental status, unspecified - Physician Notifications Discussed Care Of Patient With: Elijah Liu Time Discussed With Above Provider: 17:20 Instructed by Provider To: Other - Advised admission, treatment for urinary infection and will see her in consult. Discussed care of pt with Dr. Lorena Disla at 1740 who accepts pt for admission. Discharge - Discharge Plan Condition: Good Disposition: ADMITTED TO [facility] The documentation as recorded by the Chrissie page Rebecca accurately reflects the service I personally performed and the decisions made by me, Len Silveira MD.
[2017-02-15] MEDS ORDERED: Amoxicillin PO (*) 500 MG CAP PO SCH (21:00)
[2017-02-15] MEDS: cefTRIAXone VIAL(*) 1,000 MG in NS 0.9% 50 ML* 50 ML IVPB SCH (21:03)
--- NOTE | 2017-02-15 21:05 | RAD ---
CPT II Codes: 3100F INDICATION: Cerebrovascular accident COMPARISON: None TECHNIQUE: Multiple beard scale, color and doppler tracings of the common, internal and external carotid and vertebral arteries were obtained. Stenosis estimations reflect velocity criteria that have been correlated to angiographic stenosis calculations based on the distal internal carotid diameter. Right carotid: There is coarsely calcified plaque within the right superior common carotid artery extending into the carotid bulb. The peak systolic velocity in the proximal right internal carotid artery is 77 cm/s and the maximum end-diastolic velocity is 20 cm/s. The peak systolic velocity in the distal common carotid artery is 85 cm/s and the maximum end-diastolic velocity is 15 cm/s. The internal to common carotid ratio is 0.9. This would be consistent with a less than 50% stenosis. Left carotid: There is calcified plaque within the left carotid bulb. The peak systolic velocity in the proximal right internal carotid artery is 75 cm/s and the maximum end-diastolic velocity is 60 cm/s. The peak systolic velocity in the distal common carotid artery is 95 cm/s and the maximum end-diastolic velocity is 11 cm/s. The internal to common carotid ratio is 0.79. This would be consistent with a less than 50% stenosis. Vertebrals: There is antegrade flow in the left vertebral artery. Technical limitations prevented reliable imaging of the right vertebral artery. IMPRESSION: 1. Bilateral calcified atherosclerosis without hemodynamically significant stenosis in the bilateral carotid arteries according NASCET criteria. 2. The right vertebral artery was not reliably imaged.
[2017-02-15] MEDS: Gabapentin CAP(*) 400 MG PO SCH (21:08)
--- NOTE | 2017-02-15 21:08 | RAD ---
INDICATION: Painful superficial swelling overlying the left hip COMPARISON: None TECHNIQUE: Real time ultrasound images of the subcutaneous tissue overlying the left hip were acquired with beard scale and Doppler color flow imaging. FINDINGS: Corresponding to the site of maximal tenderness overlying the left hip there is an mostly anechoic and avascular subcutaneous fluid collection measuring 8.7 x 5.5 x 7.5 cm. There is echogenic material in the dependent portion of the collection without vascular signal. IMPRESSION: Mostly anechoic and avascular subcutaneous fluid collection overlying the left hip corresponding to the site of swelling and tenderness.
[2017-02-15] MEDS: Gabapentin CAP(*) 300 MG PO SCH (21:09)
[2017-02-15] MEDS: CMCS Dabigatran CAP(NF) 75 MG CAP PO SCH (21:10)
[2017-02-15] MEDS: Atorvastatin* 10 MG TAB PO SCH (21:10)
--- NOTE | 2017-02-15 23:22 | HP ---
CC: Dr. Cho; Dr. Liu * HISTORY AND PHYSICAL: DATE OF ADMISSION: 02/15/17 PRIMARY CARE PROVIDER: Dr. Cho. CONSULTING NEUROLOGIST: Dr. Liu. ATTENDING PHYSICIAN WHILE IN THE HOSPITAL: Rome Bell MD * (report dictated by Rafiq Galvan NP). CHIEF COMPLAINT: Altered mental status. HISTORY OF PRESENT ILLNESS: Ms. Perla is an 89-year-old female patient who does not really recalls the events of today. The patient was found by her daughter this afternoon laying half on the bed, half on with her legs dropped over on the floor. She was having a jerking motions of her arms and legs and the patient was saying incomprehensible sounds and saying words that did not make sense. Daughter says that she appeared to have like a blank stare looking right through the daughter. She would not respond to her. She said the jerking motions had stopped and then she was kind of confused for about an hour there afterwards and she is not really sure how long it lasted and she was just not acting herself. She called the VNS nurse, who came over and saw her and said she should be evaluated in the hospital. There was a report by the patient's daughter that there was a facial droop on the right side, but the only change in her medication, recently she was put on Cipro for UTI. There has been no reports of vomiting, diarrhea, fevers, chills, abdominal pain, flank pain. No chest pain. No shortness of breath. The daughter said that she was moving in all 4 extremities and she says that now in the ER, she appears to be back to her baseline. She came in and was evaluated, there was concern for possible CVA , seizure, this altered mental status, so the hospitalist service was asked to evaluate for admission. PAST MEDICAL HISTORY: Significant for: 1. Obesity. 2. AFib. 3. ELDA. 4. Hyperlipidemia. 5. PE. 6. CVA x2. 7. CAD. 8. GERD. 9. Diabetes. 10. History of Strep bacteremia. 11. Cellulitis in the past. 12. CKD, stage 3. 13. Neurogenic bladder, now on chronic Brown. 14. Hypothyroidism. PAST SURGICAL HISTORY: She has had a: 1. Pacemaker. 2. Bilateral total knee replacement. 3. Gastric bypass. 4. Laparoscopic cholecystectomy. 5. Cardiac catheterization. MEDICATIONS: According to their handwritten list include: 1. Fentanyl 50 mcg transdermally every 72 hours. 2. Simvastatin 20 mg at bedtime. 3. Protonix 40 mg daily. 4. Lisinopril 2.5 mg daily. 5. Synthroid 150 mcg daily. 6. Gabapentin 600 mg p.o. b.i.d. 7. Gabapentin 1200 mg at bedtime. 8. Lasix 20 mg daily. 9. Pradaxa 75 mg p.o. b.i.d. 10. Cipro 250 mg p.o. b.i.d. 11. Bumex 2 mg daily. 12. Amoxicillin 500 mg p.o. b.i.d. lifelong for suppressive therapy for cellulitis per her ID doctor. ALLERGIES TO MEDICATIONS: Include TAPE, KEFLEX, IODINE, and SULFA. FAMILY HISTORY: Both her parents had coronary artery disease. SOCIAL HISTORY: She does not smoke. She does not drink. Surrogate decision maker is her daughter, Emmy. REVIEW OF SYSTEMS: There is no documented fever. She denied having any significant weight change. There was no double vision. She denies having any ear discharge. There was no rhinorrhea, no sore throat, no thyroid enlargement. Denies having any chest pain. There was no orthopnea. No nocturnal dyspnea. There was no abdominal pain. There was no nausea. There was no vomiting. There was no dysuria, no frequency. There was a question of loss of consciousness. No seizure. No pruritus and no skin ulcerations. Review of 14 systems completed, all others negative. PHYSICAL EXAMINATION GENERAL: At this time, Ms. Perla is an 89-year-old female patient. She appears to be well developed, well nourished. She is sitting in the ER stretcher. VITAL SIGNS: Blood pressure 139/64 with a pulse of 74, respirations 18, O2 sat 98%, and temperature 97.9. HEENT: Head is atraumatic, normocephalic. Eyes: EOMs are intact. Sclerae anicteric and not pale. Throat: Oral mucosa appears to be dry. No oropharyngeal erythema. NECK: Supple. LUNGS: Clear to auscultation. No wheezes, rales, or rhonchi. HEART: Sounds S1, S2. Regular rate and rhythm. No murmurs, rubs, or gallops. ABDOMEN: Soft, flat, nontender. Bowel sounds are present. EXTREMITIES: Pulses were 2+ throughout. She is moving all 4 extremities with 5 /5 strength. NEUROLOGIC: She is awake now. She is alert to self and place confused to time. Cytology Supervisor were equal. Tongue midline. [id number] intact bilaterally. Heel-to- morrell intact bilaterally. Has trouble with [id number] on the left leg as this is a braced extremity. There are no gross focal deficits. SKIN: Intact. She does have an area on the left hip of swelling. It is a large nodule that is palpable on her left hip, but it is not painful, and there is no erythema surrounding it. LABORATORY DATA/DIAGNOSTIC STUDIES: Her labs today revealed WBC of 5.8, RBC of 4.37, hemoglobin of 13.5, hematocrit of 41, and platelet count of 143. INR 1.03. Sodium 139, potassium 4.6, chloride of 105, bicarb 32, BUN 32, creatinine 1.55, which is right near her baseline, glucose was 141, lactic 1.3. Calcium 9.9. Total bili 0.4, AST 19, ALT 8, alk phos 84. Troponin 0. Albumin of 3.1. Urine showed 1+ protein, 2+ leukocyte esterase, 1+ bacteria. She had multiple imaging in the ED. Brain CT, impression: Chronic findings as described without acute intracranial abnormality. She had a chest x-ray, which showed no radiographic evidence for acute cardiopulmonary abnormality. She had a femur x-ray, which shows status post left knee arthroplasty with periprosthetic lucency of the tibial component. She has a known fracture here and she is wearing a brace for this. Osteoarthritis of the left hip, no acute osseous injury. Hip and pelvis x-ray showed again status post left knee arthroplasty with periprosthetic lucency of the tibial component, osteoarthritis of the left hip, no acute osseous injury noted. Her EKG is pending. Old medical records reviewed. ASSESSMENT AND PLAN: Ms. Perla is an 89-year-old female patient coming into the ER today with complaints of altered mental status. She will be admitted under observation status for: 1. Altered mental status: Again, etiology is unclear. There was concern for right facial droop and possible transient ischemic attack versus cerebrovascular accident, but the daughter describes this jerking action and the fact that she was staring, question if she may have had a seizure or if this may just be encephalopathy from the Cipro in combination with the urinary tract infection she has. My plan is to get a consult with Dr. Liu, our neurologist, get an echo, carotid ultrasound, place on telemetry, seizure precautions. I am holding on p.r.n. Ativan just at this point. If she has a seizure, I would like to be called and will than give ativan. Obviously, if she does have one, I will give her Ativan, possibly Keppra or phenytoin pending Neurology input. Plan though is to follow her closely, neuro checks, seizure precautions and for time being, I will switch her Cipro to Rocephin. We will follow and monitor closely on telemetry as well and she is already anticoagulated on Pradaxa. 2. Atrial fibrillation: Again, rate controlled currently. Continue meds as prescribed. 3. Obstructive sleep apnea: She is not compliant with the mask. 4. Hyperlipidemia: Continue statin therapy. 5. History of pulmonary embolism: She is on Pradaxa. 6. History of cerebrovascular accident: Secondary prevention in the form of statin and Pradaxa. 7. Gastroesophageal reflux disease: Continue PPI therapy. 8. Diabetes: She will be on lispro sliding scale. 9. History of chronic kidney disease, stage 3: She is at her baseline and we will follow. 10. Neurogenic bladder: Continue with Brown. 11. Hypothyroidism: Continue her Synthroid. 12. Code status: She is a DNR. 13. Fluid, electrolytes, and nutrition. She can have a consistent carb diet. TIME SPENT: Time spent on the admission was 60 minutes, greater than half of the time spent [id number] with the patient, the other half of the time spent going over the plan of care and implementing the plan of care. I did discuss the plan of care with my attending physician, Dr. Bell, he is in agreement. RAFIQ GALVAN NP [id number]/[facility] #: [id number] JESSICA
[2017-02-16] MEDS: Levothyroxine TAB* 150 MCG TAB PO SCH (05:11)
[2017-02-16 06:20] LABS: Hematocrit 42 % (35-47); Mean Corpuscular HGB Conc 33 g/dl (31-36); Mean Corpuscular Hemoglobin 31 pg (27-31); Mean Corpuscular Volume 94 fL (80-97); Mean Platelet Volume 8 um3 (7.4-10.4); Red Blood Count 4.49 10^6/ul (4.0-5.4); Red Cell Distribution Width 15 % (10.5-15); White Blood Count 4.8 10^3/ul (3.5-10.8)
[2017-02-16 06:35] LABS: BUN/Creatinine Ratio 21.4 (8-20); Calcium 9.8 mg/dL (8.6-10.3); EGFR African American 51.4 (>60); HDL Cholesterol 33.2 mg/dL
[2017-02-16 06:44] LABS: Potassium 4.7 mmol/L (3.5-5.0)
[2017-02-16] MEDS: fentaNYL Patch Check Q Shift 1 NOTE SCH ×2 (06:57→18:28)
[2017-02-16] MEDS: Insulin LISPRO* 1 UNITS UNIT SUBCUT SCH ×3 (08:20→17:47)
[2017-02-16] MEDS: Furosemide TAB* 20 MG PO SCH (08:27)
[2017-02-16] MEDS: Omeprazole CAP* 20 MG PO SCH (08:27)
[2017-02-16] MEDS: CMCS Dabigatran CAP(NF) 75 MG CAP PO SCH ×2 (08:27→21:10)
[2017-02-16] MEDS: Gabapentin CAP(*) 300 MG PO SCH ×2 (08:27→21:10)
[2017-02-16 10:12] LABS: Folate > 20.00 ng/mL (>3.99)
[2017-02-16 10:13] LABS: Vitamin B12 591 pg/mL (180-914)
--- NOTE | 2017-02-16 10:49 | PN ---
Subjective Date of Service: 02/16/17 Interval History: Patient seen this morning. Still feels confused as to what happened and that she is in a fog. Still reports some discomfort with urination/cantu. Cannot recall events that may have led to this large bump on her L hip. Report some mild SOB, no pain. Family History: Unchanged from Admission Social History: Unchanged from Admission Past Medical History: Unchanged from Admission Objective Active Medications: Acetaminophen (Tylenol Tab*) 650 mg PO Q4H PRN Atorvastatin Calcium (Lipitor*) 10 mg PO BEDTIME GENO Dabigatran (Pradaxa Cap(Nf)) 75 mg PO BID GENO Dextrose (D50w Syringe 50 Ml*) 12.5 gm IV PUSH .FOR FS < 60 - SS PRN Fentanyl (Duragesic Patch 50 Mcg/Hr*) 50 mcg TRANSDERM Q72H GENO Furosemide (Lasix Tab*) 20 mg PO DAILY GENO Gabapentin (Neurontin Cap(*)) 1,200 mg PO BEDTIME GENO Gabapentin (Neurontin Cap(*)) 600 mg PO BID GENO Ceftriaxone Sodium 1,000 mg/ (Sodium Chloride) 50 mls @ 200 mls/hr IVPB Q24H [facility] Insulin Human Lispro (Humalog*) 0 units SUBCUT AC GENO Levothyroxine Sodium (Synthroid Tab*) 150 mcg PO 0600 GENO Omeprazole (Prilosec Cap*) 20 mg PO DAILY [facility] Pharmacy Profile Note (Fentanyl Patch Check Q Shift) 1 note N/A 0700,1900 [facility] Vital Signs 02/15/17 02/15/17 02/15/17 18:00 19:13 19:29 Temperature 97.4 F Pulse Rate 75 66 Respiratory 20 18 Rate Blood Pressure 139/64 114/49 (mmHg) O2 Sat by Pulse 98 100 Oximetry 02/15/17 02/15/17 02/16/17 23:09 23:24 03:32 Temperature 97.6 F 97.4 F Pulse Rate 61 73 Respiratory 17 16 16 Rate Blood Pressure 126/45 142/56 (mmHg) O2 Sat by Pulse 100 100 Oximetry 02/16/17 02/16/17 02/16/17 07:13 07:20 08:27 Temperature 98.1 F Pulse Rate 62 Respiratory 18 20 18 Rate Blood Pressure 108/59 (mmHg) O2 Sat by Pulse 100 Oximetry Oxygen Devices in Use Now: None Appearance: Elderly, F, sitting in chair in NAD Eyes: No Scleral Icterus Ears/Nose/Mouth/Throat: Mucous Membranes Moist Neck: NL Appearance and Movements; NL JVP Respiratory: Symmetrical Chest Expansion and Respiratory Effort, - - Rales in B/ L bases Cardiovascular: NL Sounds; No Murmurs; No JVD, RRR Abdominal: NL Sounds; No Tenderness; No Distention Lymphatic: No Cervical Adenopathy Extremities: - - Large L lump in hip Neurological: - - Alert, oriented, no focal deficits Lines/Tubes/Other Access: Clean, Dry and Intact Cantu Result Diagrams: 02/16/17 05:45 02/16/17 05:45 Assess/Plan/Problems-Billing Assessment: Possible seizure 2/2 Cipro in an 89 yo F with hx of AFib, hx of PE on Pradaxa, obesity, ELDA not on CPAP, GERD, DM, CKD3, hypothyroidism, neurogenic bladder s/ p cantu - Patient Problems (1) Altered mental status Current Visit: Yes Comment: Possible seizure. Occurred after recently starting Cipro for UTI. Apprecaite Neurology assistance. EEG done this AM, pending read. CVA work-up negative thus far. Echo pending. Cannot get MRI so will repeat CT head tomorrow. Continue to monitor on tele. (2) UTI (urinary tract infection) Current Visit: Yes Comment: Continue to treat with CTX for now. Change cantu. (3) Afib Current Visit: No Comment: Rate controlled. Continue Pradaxa. (4) Subcutaneous mass Current Visit: Yes Comment: Unclear etiology, feels like lipoma but it seems this has come on rather quick. US shows hypoechoic areas, possibly some fluid. ? cyst. Monitor for now. (5) Hypothyroidism Current Visit: No Comment: Continue synthroid. (6) GERD (gastroesophageal reflux disease) Current Visit: Yes Comment: Continue PPI (7) DVT prophylaxis Current Visit: No Comment: Pradaxa Status and Disposition: Inpatient, will likely need DELIA
--- NOTE | 2017-02-16 12:26 | CONS ---
CONSULTATION NOTE: DATE OF ADMISSION: 02/15/17 DATE OF CONSULT: 02/16/17 LOCATION: She is currently in [facility], bed 2. REASON FOR CONSULT: Episode of altered mental status. HISTORY OF PRESENT ILLNESS: Ms. Perla is a very nice 89-year-old female who has an extensive list of medical problems including diabetes, chronic kidney disease stage 3, AFib on Pradaxa, some under lying dementia, hypothyroidism, hypertension, coronary artery disease, systolic CHF, and chronic uri nary tract infections as well. She presented to the hospital last evening after being found confuse d by her daughter. I did speak with her daughter this morning, Emmy Perla, area code , who was able to give me more history. The patient is unaware why she is here and cannot remembe r the events from yesterday. The daughter states that around 12:30 yesterday, she walked in and fou nd her mother slumped over, half in and half out of bed. Her eyes were rolling back in her head and she did not know who she was, although she was speaking some, it was confused. Her daughter also n oted some jerking type movements of her arms and legs. Her daughter states that she has seen many g eneralized tonic-clonic seizures and did not think that this was a seizure. There was no bladder or bowel incontinence. There was no tongue biting. She was able to get her to sit up and she was pete newton, but again not making sense. She did ask her if she was thirsty and she got some juice. The p atient said that she was hungry. She did drink the orange juice and she finally ate a sandwich. Th e daughter notes that she was diaphoretic at that time and that it was hot in the room. The confusi on lasted for at least an hour. The visiting nurse came to see her and then ambulance was called im mediately. No one checked a finger glucose during these episodes. She is on medication for diabete s. The daughter notes no history of seizure disorder. No family history of seizure disorder. No s eizures as a child. No history of head trauma. No history of meningitis. She has never had an epi sode like this in the past. Her daughter states that she was started on Cipro last week, Tuesday, fo r chronic urinary tract infection. She does have a chronic indwelling catheter. There has been no fevers or chills noted. No shortness of breath or chest pain. No dyspnea on exertion. No diarrhea or constipation. She has a chronic indwelling catheter. She does have some pain in her left hip. The daughter states that this has been keeping her from walking and a fluid collection over the left hip as well that the daughter says has been getting worse. There has been no reported headache, fa lls, vision changes, speech changes, other than those reported during the episode. There has been n o reported hearing loss above her baseline. She does have baseline memory loss. No reported swallo wing difficulties or speaking difficulties other than as noted. No facial droop per the daughter. No focal weakness, numbness, or tingling. She was able to move all extremities. PAST MEDICAL HISTORY: As noted above. PAST SURGICAL HISTORY: Includes cardiac cath with pacemaker, cholecystectomy, gastric bypass, and b ilateral knee surgeries. MEDICATIONS: Her medications according to the history and physical on admission include: 1. Fentanyl 50 mcg transdermally every 72 hours. 2. Simvastatin 20 mg at bedtime. 3. Protonix 40 mg daily. 4. Lisinopril 2.5 mg daily. 5. Synthroid 150 mcg daily. 6. Gabapentin 600 mg p.o. b.i.d. 7. Gabapentin 1200 mg at night. 8. Lasix 20 mg p.o. daily. 9. Pradaxa 75 mg p.o. b.i.d. 10. Cipro 250 mg p.o. b.i.d. which has been discontinued. 11. Bumex 2 mg daily. 12. Amoxicillin 500 mg p.o. b.i.d. for lifelong suppression of cellulitis per her ID doctor. ALLERGIES: She is allergic to ADHESIVE TAPE, CEPHALEXIN, IODINE, and SULFA drugs. FAMILY HISTORY: Significant for coronary artery disease in both parents. SOCIAL HISTORY: She lives at home, is cared for by her daughter and her son. No tobacco or alcohol use reported. REVIEW OF SYSTEMS: Review of systems in 14-organ systems as noted above, otherwise negative. PHYSICAL EXAM: Vital Signs: Temp of 98.1, pulse of 62, respiratory rate of 18, pulse ox of 100%, b lood pressure 108/59. Review telemetry, no events. Several PVCs, but she is paced. She has been a febrile since admission. Blood pressures have been normal, but slightly high. In general, she is a well-nourished, well- developed, obese female, lying in her hospital bed. She is very pleasant. S he smiles. She is well dressed, well groomed. HEENT: She is normocephalic, atraumatic. Sclerae a re anicteric. Mucous membranes are moist. She has no teeth. Poor dentition. Neck is supple. No t hyromegaly. No carotid bruits. No meningismus. Chest: Clear to auscultation bilaterally. Cardio vascular: Regular rate and rhythm. Abdomen: Obese, nontender. Extremities: No cyanosis or clubb ing. She does have 1 to 2+ edema in the lower extremities bilaterally, nonpitting. She also has shea rgical scars over both knees. She has a 6 x 8 cm soft, subcutaneous mass overlying the left hip whi ch is somewhat tender to palpation, but not red or swollen. On neurologic exam, she is awake and al ert. She is oriented to [facility]. She did not know the month, the date, or the yea r. She also was unclear why she was here. Her speech is fluent. There was no dysarthria. Her cran ial nerves II through XII, visual dunham are full. Pupils are equal, round, and reactive to light. Extraocular muscles are intact bilaterally. No diplopia. No ptosis noted. Her sensation on the fa ce is intact to light touch and pinprick. Her face is symmetric. There is no drooping. Smile is s ymmetric. Eyebrow raise is symmetric. Her hearing is diminished to finger rub bilaterally, but symm etric. Her palate elevates symmetrically. Tongue is midline. Sternocleidomastoid and shoulder shru g are both normal, full strength. Sensation which was intact to light touch, pinprick, vibration, p roprioception in the upper extremities, she had stocking loss of all modalities in the lower extremi ties to the ankles. She is spontaneous and moves all extremities antigravity. In the upper extremi ty, she has 4+/5 strength throughout. In her left upper extremity, she has limited range of motion because of shoulder pain. No drift is apparent. Tone and bulk are both normal in the lower extremit ies. She has difficulty raising her legs 20 to 30 degrees off the bed, but she does have good resis tance 4/5 proximally, 4+/5 distally. Tone and bulk are both good. DTRs were absent in the lower ex tremities, ankle and patella. Equivocal Babinski's. Upper extremities, absent in the biceps, brach ioradialis, triceps. Obxxuw-ad-oall and rapid alternating movements were intact on the right. On t he left, she had difficulty raising her left arm above 90 degrees due to shoulder pain. There was m ild endpoint tremor, but no evidence of dysdiadochokinesia or dysmetria. Gait was not tested at thi s time. She feels unsteady and feels weak in her legs. DIAGNOSTIC STUDIES/LAB DATA: Lab work includes a CBC with diff that showed a platelet count of 123, otherwise normal. INR of 1.03. Chemistry: She had a BUN of 27, creatinine of 1.26. LDL cholest justin 62, HDL 33.2, cholesterol of 112, triglycerides of 86. Calcium of 9.8, glucose of 85, otherwis e normal. Urine showed 1+ blood, 2+ leukocyte esterase, 2+ white blood cells, bacteria 1+, hyaline casts present. She has an echocardiogram pending. She had a carotid ultrasound done yesterday, i ch showed bilateral calcified atherosclerosis without hemodynamically significant stenosis in the bi lateral carotid arteries. The right vertebral artery was not reliably imaged. She had a brain CT d one, films were reviewed. 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 No acute paul es noted. She had an ultrasound of her left hip which showed mostly anechoic and avascular subcutan eous fluid collection overlying the left hip, corresponds to the site of swelling and tenderness. H ip x-ray status post left knee arthroplasty with periprosthetic lucency of the tibial component. Ost eoarthritis of the left hip, no acute osseous injury. Chest x-ray, no radiographic evidence of acut e cardiopulmonary abnormality. Femur x-ray, status post left knee arthroplasty with periprosthetic lucency of the tibial component, osteoarthritis of the left hip. ASSESSMENT AND PLAN: Ms. Perla is an 89-year-old female with a history of multiple medical issues including atrial fibrillation, on Pradaxa; diabetes, history of underlying dementia, chronic kidney disease, chronic urinary tract infections with an indwelling catheter, hypothyroidism, hypertension , coronary artery disease, systolic congestive heart failure, no history of seizures in the past, no known risk factors for seizures, presents to the hospital with a history of an episode yesterday st arting around 12:30 where she became confused. Her daughter found her half in, half out of the bed. She had some jerking movements of her arms and legs, but her daughter states it did not look like a generalized tonic- clonic seizure which she has seen many in the past. She was diaphoretic at nery t time as well. No one checked her blood sugars. She was started on Cipro recently for urinary tra ct infection that has since been discontinued. 1. Altered mental status: At this point, my differential includes a possible seizure with a postic pete state versus hypoglycemia. She was recently started on Cipro, which is known to cause seizures, although she has no other strong risk factor for seizures. It can be associated with underlying de mentia. The semiology of the event is unclear, although the confusion is consistent with a posticta l state. At this point, she is on seizure precautions. I would not start her on any medications as this is the first seizure that she has ever had and she had a known provoking agent started on Frid ay. We will continue to watch. Her EEG is pending. Hypoglycemia is another possibility. She is a diabetic. No one checked her blood sugars at that time, but she did improve an hour or so after eat ing and drinking orange juice and a sandwich. So, this is certainly a possibility as well. We will continue to monitor her blood sugars and watch for episodes of hypoglycemia. Cardiac arrhythmia wou ld be a possibility. She does have a pacer in place. No telemetry events overnight. We will aldo betty to follow this. My suspicion for stroke at this point is very low given the nature of her sympt oms. I will repeat a CT scan tomorrow morning to make sure that there is no evidence of a new strok e on CT scan; it was not seen on the initial scan. Unfortunately, she cannot have an MRI. We will continue with the stroke workup including transthoracic echocardiogram. We will continue her Pradax a and statin as well as blood pressure and diabetes control. She is a nonsmoker. I will check some lab work as well to rule out reversible causes of stroke. 2. Dementia, an ongoing underlying process: I will plan to follow her up in clinic and we can cons ider adding medications for that. 3. Appears to have peripheral neuropathy. She is on gabapentin at night. We will continue this. 4. Chronic urinary tract infections: We will defer to her primary treating physician. 5. Left hip swelling: We will defer primary physician regarding further workup. I will continue to follow her closely and make further recommendations if necessary. Thank you for the opportunity to participate in her care. [id number]/[facility] #: [id number]
[2017-02-16] MEDS: fentaNYL PATCH 50 MCG/HR TRANSDERM SCH (13:06)
--- NOTE | 2017-02-16 18:12 | ECHO ---
Patient: COSME MARTIN [facility] Rec#: [id number] : 1925 Date: 02/16/2017 Age: 89y Height: 152.4 cm / 60.0 in Weight: 84.37 kg / 186.0 lbs Sex: F BSA: 1.81 Room#: [facility] Admit Date#: 02/15/2017 Type: Inpatient Referring: Rafiq Galvan NP Reading: Radha Ramirez MD Airway Controller: [facility] Transthoracic Echocardiogram Indication: CVA, AMS. BP: 108/59 HR: 70 Rhythm: Paced Findings History: A-Fib s/p pacer, obesity, ELDA, HLDLess Than PE, CVAx2, CAD, DM, CKD III, Hx of strep bactremia, and hypothyroidism. Technical Comments: The study quality is fair. The study is technically limited due to patient body habitus. Completed at 1717. Left Ventricle: The left ventricular chamber size is normal. There is no left ventricular hypertrophy. Global left ventricular wall motion and contractility are within normal limits. Left ventricular systolic function is at the lower limits of normal. The estimated ejection fraction is 50-55%. There is abnormal ventricular septal wall motion consistent with right ventricular pacemaker. The assessment of diastolic function is non-diagnostic. Left Atrium: The left atrium is severely dilated. Right Ventricle: The right ventricle is slightly dilated. The right ventricular global systolic function is normal. A pacemaker wire is visualized in the right ventricle. Right Atrium: The right atrial cavity size is severely dilated. A pacemaker wire is visualized in the right atrium. Interatrial septum appears intact without evidence of shunting. The bubble study is negative. A patent foramen ovale is not demonstrated with color Doppler and agitated contrast. Aortic Valve: The aortic valve is trileaflet. Mild aortic leaflet calcification is visualized. Systolic excursion of the left coronary cusp is reduced. There is mild to moderate aortic regurgitation. Wide jet seen on short axis, unable to evaluate via P 1/2 or evaluate the descending aorta. There is borderline aortic stenosis present. Mitral Valve: There is mitral annular calcification. The mitral valve leaflets are mildly thickened. There is mild to moderate mitral regurgitation. posterior lateral jet. There is no evidence of mitral stenosis. Tricuspid Valve: The tricuspid valve leaflets are mildly thickened. There is mild to moderate tricuspid regurgitation. The right ventricular systolic pressure is estimated at 28 mmHg. There is evidence that pulmonary hypertension may be underestimated. There is no tricuspid stenosis. Pulmonic Valve: The pulmonic valve appears normal. There is mild pulmonic regurgitation. There is no pulmonic stenosis. Pericardium: There is no significant pericardial effusion. A pericardial fat pad is visualized. Aorta: The ascending aorta is not well visualized. The aortic arch is not well visualized. There is no dilation of the aortic root. Pulmonary Artery: The main pulmonary artery is not well visualized. Venous: The inferior vena cava appears normal in size. There is a greater than 50% respiratory change in the inferior vena cava dimension. Contrast: Normal saline was used as contrast for the bubble study. Images 64 and 65. Intravenous contrast was used to help determine presence of intracardiac shunting. Conclusions The study is technically limited due to patient body habitus. The left ventricular chamber size is normal. Global left ventricular wall motion and contractility are within normal limits. The estimated ejection fraction is 50-55%. The right ventricular global systolic function is normal. The left atrium is severely dilated. The right atrial cavity size is severely dilated. The bubble study is negative, no evidence of intracardiac shunting. Systolic excursion of the left coronary cusp is reduced. There is borderline aortic stenosis present. There is mild to moderate aortic regurgitation. There is MAC, sclerosis of the mitral leaflets with mild to moderate mitral regurgitation. posterior lateral jet. There is mild to moderate tricuspid regurgitation. The right ventricular systolic pressure is estimated at 28 mmHg. Compared with prior study of 04/01/15, prior EF 40-45%, the degree of AI at that time was moderate, the degree of MR and TR were mild. Recommendation: if clinically indicated consider a JODIE (transesophogeal echo) to more accurately evaluate for possible cardioembolic sounce and valve function. Measurements Name Value Normal Range RVIDd (AP) 2D 3.4 cm (0.9 - 2.6) RVDdMajor (2D) 3.9 cm (2.2 - 4.4) RAd ISD 4CH 7 cm (3.4 - 4.9) RA (A4C)W 4.8 cm (2.9 - 4.6) IVSd (2D) 1 cm (0.6 - 1) LVPWd (2D) 0.8 cm (0.6 - 1) LVIDd (2D) 5 cm (3.6 - 5.4) LVIDs (2D) 3.7 cm - LV FS (2D) 26 % (25 - 45) Aortic Annulus 1.8 cm (1.4 - 2.6) Ao root diameter (2D) 3 cm (2.1 - 3.5) LA dimension (AP) 2D 4.1 cm (2.3 - 3.8) LAd ISD 4CH 7 cm (2.9 - 5.3) LA ISD 4CH W 4.9 cm (2.5 - 4.5) Name Value Normal Range LA ESV SP 4CH (A/L) 111 ml - LA ESV SP 2CH (A/L) 64 ml - LA ESV BP (A/L) 85 ml - LA ESV BP (A/L) index 46.82 ml/m2 - LA ESV SP 4CH (MOD) 103 ml - LA ESV SP 2CH (MOD) 60 ml - Name Value Normal Range MV E-wave Vmax 0.92 m/sec - MV deceleration time 205.79 msec - LV septal e' Vmax 0.07 m/sec - LV lateral e' Vmax 0.07 m/sec - LV E:e' septal ratio 13.14 ratio - LV E:e' lateral ratio 13.14 ratio - Name Value Normal Range AV Vmax 1.93 m/sec - AV VTI 38.9 cm - AV peak gradient 14.9 mmHg - AV mean gradient 7.11 mmHg - LVOT diameter 2 cm - LVOT Vmax 0.76 m/sec - LVOT VTI 16.83 cm - LVOT peak gradient 2.3 mmHg - LVOT mean gradient 1.25 mmHg - DOI (VTI) 0.43 ratio - JINA (continuity Vmax) 1.26 cm2 - JINA (continuity VTI) 1.36 cm2 - Name Value Normal Range TR Vmax 2.5 m/sec - TR peak gradient 25 mmHg - RAP 3 mmHg - RVSP 28 mmHg - IVC diameter 1.9 cm - Name Value Normal Range PV Vmax 0.61 m/sec - PV peak gradient 1.52 mmHg - NH end-diastolic Vmax 0.9 m/sec -
--- NOTE | 2017-02-16 20:48 | PTEDU ---
Patient Name: COSME MARTIN VERONICACOSME Healy selected video: Depression Screening to view on 02/16/2017 at 8:47:38 PM from [id number]
[2017-02-16] MEDS: cefTRIAXone VIAL(*) 1,000 MG in NS 0.9% 50 ML* 50 ML IVPB SCH (21:10)
[2017-02-16] MEDS: Atorvastatin* 10 MG TAB PO SCH (21:10)
[2017-02-16] MEDS: Gabapentin CAP(*) 400 MG PO SCH (21:10)
[2017-02-17] MEDS: Levothyroxine TAB* 150 MCG TAB PO SCH (05:17)
[2017-02-17] MEDS: fentaNYL Patch Check Q Shift 1 NOTE SCH ×2 (07:06→18:40)
--- NOTE | 2017-02-17 08:38 | EEG ---
ELECTROENCEPHALOGRAPHY: DATE OF STUDY: 02/16/17 LOCATION: She is an inpatient in room 447. REFERRING PROVIDER: Rafiq Galvan NP CLINICAL PROBLEM: Episode of diminished responsiveness and jerking of the limbs the day prior to this recording. There is, apparently, transient right- sided weakness after that, which resolved by emergency room evaluation. MEDICATIONS: Include: 1. Xarelto. 2. Insulin. 3. Fentanyl. 4. Rocephin. 5. Lipitor. 6. Synthroid. REPORT: This 16-channel EEG is remarkable for background rhythms consisting of diffuse slow activity, mainly in the 5 to 6 cycle per second range seen parasagittally, but more prominently from the left hemisphere than the right. There are faster low-voltage rhythms seen bifrontally. There are some mixed theta activity and alpha activity without a particular posterior-anterior gradient seen more from the right hemisphere. There are very infrequent sharp waves seen from the left parasagittal area around the P3 electrode, but without following slow waves. The patient is described as awake at the onset of the tracing. Sleep stages are not clearly recognized. Activation procedures are not attempted. There are no clinical phenomena described. CLINICAL IMPRESSION: Abnormal EEG due to diffuse slowing and disorganization of background rhythms, more prominently from the left hemisphere. There are few sharp waves from the left parasagittal region, but no clearly formed epileptiform discharges. This tracing is compatible with diffuse cerebral dysfunction, possibly more from the left hemisphere than the right. [id number]/[facility] #: [id number] MTDD
--- NOTE | 2017-02-17 08:55 | RAD ---
INDICATION: Possible CVA COMPARISON: CT brain February 15, 2017 TECHNIQUE: Noncontrast axial source images were acquired from the skull base to the vertex. FINDINGS: Ventricles/sulci: There is cortical atrophy with compensatory dilatation of the CSF spaces. Brain parenchyma: There is periventricular and subcortical white matter change compatible with chronic ischemia. There are tiny right basal ganglia lacunar type infarcts, unchanged. Intracranial hemorrhage:None. Extra-axial spaces: There are no abnormal extra axial fluid collections or evidence of extra-axial mass. Calvarium: There is no calvarial fracture or other calvarial abnormality. Scalp: There is no evidence of scalp or extracalvarial soft tissue abnormality. Paranasal sinuses/mastoid: The paranasal sinuses and mastoid air cells are clear. Other: None. IMPRESSION: CORTICAL ATROPHY WITH CHRONIC MICROVASCULAR ISCHEMIC CHANGES. NO ACUTE FINDINGS.
[2017-02-17] MEDS: Insulin LISPRO* 1 UNITS UNIT SUBCUT SCH ×3 (09:11→16:57)
[2017-02-17] MEDS: CMCS Dabigatran CAP(NF) 75 MG CAP PO SCH ×2 (09:15→20:33)
[2017-02-17] MEDS: Omeprazole CAP* 20 MG PO SCH (09:16)
[2017-02-17] MEDS: Gabapentin CAP(*) 300 MG PO SCH ×2 (09:16→20:30)
[2017-02-17] MEDS: Furosemide TAB* 20 MG PO SCH (09:17)
--- NOTE | 2017-02-17 11:37 | PN ---
Subjective Date of Service: 02/17/17 Interval History: This is an 89 yo female with multiple medical problems who presented after an acute episode at home that was interpreted as a possible seizure. Initial CT negative. EEG shows diffuse slowing with L>R hemisphere dysfunction but no epileptiform activity. Patient has been mildly confused with progressive improvement during her hospital stay. No additional symptoms. She was recently treated for UTI with Cipro, currently being treated with ceftriaxone. Her repeat culture is growing only yeast. Today, patient offers no acute complaints. Her short term memory is slightly impaired, but this does not sound to be new. She otherwise denies MERCADO, visual changes, CP, SOB, abd pain, n/v. Objective Active Medications: Acetaminophen (Tylenol Tab*) 650 mg PO Q4H PRN PRN Reason: FEVER/PAIN Atorvastatin Calcium (Lipitor*) 10 mg PO BEDTIME [facility] Last Admin: 02/16/17 21:10 Dose: 10 mg Dabigatran (Pradaxa Cap(Nf)) 75 mg PO BID [facility] Last Admin: 02/17/17 09:15 Dose: 75 mg Dextrose (D50w Syringe 50 Ml*) 12.5 gm IV PUSH .FOR FS < 60 - SS PRN PRN Reason: FS < 60 Fentanyl (Duragesic Patch 50 Mcg/Hr*) 50 mcg TRANSDERM Q72H [facility] Last Admin: 02/16/17 13:06 Dose: 50 mcg Furosemide (Lasix Tab*) 20 mg PO DAILY [facility] Last Admin: 02/17/17 09:17 Dose: 20 mg Gabapentin (Neurontin Cap(*)) 1,200 mg PO BEDTIME GENO Last Admin: 02/16/17 21:10 Dose: 1,200 mg Gabapentin (Neurontin Cap(*)) 600 mg PO BID GENO Last Admin: 02/17/17 09:16 Dose: 600 mg Ceftriaxone Sodium 1,000 mg/ (Sodium Chloride) 50 mls @ 200 mls/hr IVPB Q24H GENO Last Admin: 02/16/17 21:10 Dose: 200 mls/hr Insulin Human Lispro (Humalog*) 0 units SUBCUT AC GENO PRN Reason: Protocol Last Admin: 02/17/17 09:11 Dose: Not Given Levothyroxine Sodium (Synthroid Tab*) 150 mcg PO 0600 [facility] Last Admin: 02/17/17 05:17 Dose: 150 mcg Omeprazole (Prilosec Cap*) 20 mg PO DAILY [facility] Last Admin: 02/17/17 09:16 Dose: 20 mg Pharmacy Profile Note (Fentanyl Patch Check Q Shift) 1 note N/A 0700,1900 [facility] Last Admin: 02/17/17 07:06 Dose: 1 note Vital Signs: Temp Pulse Resp BP Pulse Ox 97.5 F 65 18 121/42 97 02/17/17 07:33 02/17/17 07:33 02/17/17 09:16 02/17/17 07:33 02/17/17 07:33 Oxygen Devices in Use Now: None Appearance: Well appearing elderly female in NAD Respiratory: Symmetrical Chest Expansion and Respiratory Effort, Clear to Auscultation Cardiovascular: NL Sounds; No Murmurs; No JVD, RRR Abdominal: NL Sounds; No Tenderness; No Distention Result Diagrams: 02/16/17 05:45 02/16/17 05:45 Additional Lab and Data: Lab Results 02/15/17 Range/Units 16:15 Urine Color Yellow Urine Appearance Clear Urine pH 5.0 (5-9) Ur Specific [place] 1.011 (1.010-1.030) Urine Protein Negative (Negative) Urine Ketones Negative (Negative) Urine Blood 1+ H (Negative) Urine Nitrate Negative (Negative) Urine Bilirubin Negative (Negative) Urine Urobilinogen Negative (Negative) Ur Leukocyte Esterase 2+ H (Negative) Urine WBC (Auto) 2+(11-20/hpf) H (Absent) Urine RBC (Auto) Trace(0-2/hpf) (Absent) Ur Squamous Epith Cells Present H (Absent) Urine Bacteria 1+ H (Absent) Hyaline Casts Present H (Absent) Urine Glucose Negative (Negative) Assess/Plan/Problems-Billing Assessment: Possible seizure 2/2 Cipro in an 89 yo F with hx of AFib, hx of PE on Pradaxa, obesity, ELDA not on CPAP, GERD, DM, CKD3, hypothyroidism, neurogenic bladder s/ p cantu - Patient Problems (1) Altered mental status Comment: Appears to be back to baseline mental status Possible seizure. Occurred after recently starting Cipro for UTI. Appreciate Neurology assistance. EEG demonstrates non-specific slowing, but more pronounced in the L hemisphere when compared to the R. CVA work-up negative thus far, MRI contraindicated due to pacer. Repeat CT brain shows no infarct. Echo largely unremarkable Requested pacer interrogation to eval for cardiac dysrhythmia that may have produced her acute symptoms (2) Subcutaneous mass Comment: Over the L hip Unclear etiology, feels like lipoma but it seems this has come on rather quick. US shows hypoechoic areas, possibly some fluid. ?cyst. No underlying fracture Monitor for now. (3) UTI (urinary tract infection) Comment: With chronic indwelling Cantu Repeat cx shows yeast only Stop ceftriaxone at this time, no further treatment necessary (4) Afib Comment: Rate controlled. Continue Pradaxa. (5) CKD (chronic kidney disease), stage III Comment: Stage III Stable, Cr at baseline (6) GERD (gastroesophageal reflux disease) Comment: Continue PPI (7) DVT prophylaxis Comment: Pradaxa (8) DNR (do not resuscitate) Status and Disposition: Inpatient, will need DELAI. Anticipate likely dc tomorrow.
[2017-02-17] MEDS: Gabapentin CAP(*) 400 MG PO SCH (20:32)
[2017-02-17] MEDS: Atorvastatin* 10 MG TAB PO SCH (20:33)
--- NOTE | 2017-02-18 03:08 | PN ---
PROGRESS NOTE: DATE OF PROGRESS NOTE: 02/17/17 LOCATION: She is currently in 447, bed 2. SUBJECTIVE: Overnight, she has done well. She seems to be improved from yesterday. She continues to have some intermittent confusion but is more clear than she was. She has had no further seizure-like activity, no loss of consciousness. She denies any new symptoms including numbness, tingling, weakness, headache, vision changes, speech changes. She is very sweet and pleasant but still unclear why she came into the hospital. She had a repeat brain CT this morning, which showed cortical atrophy and some microvascular changes. EEG done yesterday showed some slowing, left greater than right, a few sharp waves in the left parasagittal region but no clear epileptiform discharges, consistent with diffuse cerebral dysfunction, possibly more on the left hemisphere than the right. OBJECTIVE: Vital Signs: Temp of 97.9, pulse rate of 77, respiratory rate of 20 , pulse ox 100%, blood pressure 126/92. In general, she is a well-nourished, well- developed female in no acute distress. She is sitting in her hospital bed. She is about to eat lunch. She is very pleasant. HEENT: She is normocephalic, atraumatic. Sclerae are anicteric. Mucous membranes are moist. Oropharynx is clear. Neck is supple. Chest is clear to auscultation bilaterally. Cardiovascular is irregularly irregular. Abdomen is obese, nontender. Extremities: No cyanosis. On neurologic exam, she is awake, alert. She is oriented to person, [facility], January,. She did not know the day of the week or the date. Her speech is fluent. She has poor dentition but no significant dysarthria per se. She has no dentures in place. Cranial Nerves: Pupils are equal, round, and reactive to light. Extraocular muscles are intact. Visual dunham are full. Face is symmetric. Sensation is intact. Hearing is intact bilaterally. Tongue is midline. Palate is symmetric. She is spontaneously moving all extremities antigravity, 4+/5 throughout. No focal weakness. Sensation is grossly intact to light touch and pinprick in all 4 extremities. She follows commands. [id number] and rapid alternating movements are intact without evidence of ataxia. LABORATORY DATA: Blood sugar is 170 to 95 to 103 to 144. Her B12 level was 591. Folate greater than 20. LDL cholesterol 62. ASSESSMENT AND PLAN: Ms. Perla is an 89-year-old female, who was admitted to the hospital with what is described as possible seizure activity. The etiology is somewhat unclear but certainly some features were consistent with seizures. EEG shows diffuse slowing, left greater than right, with some sharp waves but no clear epileptiform activity. She was also recently started on Cipro, which is known to cause seizures. She has since been taken off that. At this point, my suspicion for stroke is low. She did have an echocardiogram done, technically limited, ejection fraction of 50% to 55%, left atrium dilated. Compared to prior study of 04/01/15 with a prior EF of 40% to 45%, the degree of aortic insufficiency at that time was moderate, the degree of mitral regurgitation and tricuspid regurgitation was mild, some worsening, but overall no obvious significant abnormalities at this time. Carotid Doppler showed bilateral calcific atherosclerosis without hemodynamically significant stenosis. Vertebral artery was not reliably imaged. My concern for stroke again is extremely low. Repeat CT scan did not show any evidence of an evolving stroke. I will continue her on Lipitor. She is already on Pradaxa. I see no reason at this point to start her on an aspirin. She is a nonsmoker. Continue blood pressure control. Continue diabetes control. If this was a seizure, it was reportedly her first seizure, she has no significant seizure risk factors. Based on the information, I would not start her on any antiepileptic medication as possibly could have been a provoked seizure as well related to the Cipro. From a neurologic standpoint, I do think she is clear for discharge. I will continue to follow her as an inpatient. [id number]/[facility] #: [id number] [facility]
[2017-02-18] MEDS: Levothyroxine TAB* 150 MCG TAB PO SCH (05:55)
[2017-02-18] MEDS: fentaNYL Patch Check Q Shift 1 NOTE SCH (06:29)
--- NOTE | 2017-02-18 07:38 | DS ---
CC: Dr. Fawad Cho; Dr. Liu * DISCHARGE SUMMARY: DATE OF ADMISSION: 02/15/17 DATE OF DISCHARGE: 02/18/17 PRIMARY CARE PROVIDER: Dr. Fawad Cho. CONSULTING NEUROLOGIST: Dr. Miguel Liu. DISCHARGING PROVIDER: JARRETT Vazquez. SUPERVISING PHYSICIAN: Dr. Lorena Branch * (DICTATED BY JARRETT VAZQUEZ) PRIMARY DISCHARGE DIAGNOSES: 1. Altered mental status - seizure versus acute encephalopathy, perhaps related to ciprofloxacin. 2. Subcutaneous mass located over the left hip of unclear etiology that requires further followup. Ultrasound demonstrates that it is fluid filled and there is no underlying fracture. 3. Urinary tract infection associated with chronic indwelling Brown catheter, now status post treatment with no further antibiotics necessary. SECONDARY DISCHARGE DIAGNOSES: 1. Neurogenic bladder with chronic indwelling Brown. 2. Atrial fibrillation. 3. Stage 3 chronic kidney disease without acute exacerbation. 4. Gastroesophageal reflux disease. DISCHARGE MEDICATIONS: 1. Bumex 2 mg p.o. daily. 2. Pradaxa 75 mg p.o. twice daily. 3. Gabapentin 1200 mg p.o. at bedtime and 600 mg p.o. twice daily. 4. Levothyroxine 150 mcg p.o. daily. 5. Lisinopril 2.5 mg p.o. daily. 6. Protonix 40 mg p.o. daily. 7. Simvastatin 20 mg p.o. at bedtime. 8. Fentanyl patch 50 mcg q. 72 hours. Medication Changes: Discontinue Cipro. HOSPITAL IMAGIN. CT of the brain 02/15/17 shows chronic findings but no acute abnormalities. 2. Chest x-ray shows no acute process. 3. Femur x-ray shows prior knee arthroplasty with periprosthetic lucency of the tibial component and osteoarthritis of the hip but no acute imaging. 4. X-ray of the hip and pelvis demonstrate no acute fracture. 5. Carotid Doppler study shows bilateral calcified atherosclerosis without significant stenosis in both carotid arteries. 6. Soft tissue ultrasound of the mass over the left hip shows an avascular subcutaneous fluid collection overlying the left hip corresponding to site of swelling and tenderness. 7. CT of the brain 02/17/17 shows cortical atrophy with chronic microvascular ischemic changes and no acute findings. 8. Transthoracic echocardiogram shows normal ejection fraction of 50% to 55%. Assessment of diastolic function is nondiagnostic. Negative bubble study and no significant valvular disease. 9. EEG shows diffuse slowing and disorganization of background rhythms more prominently in the left hemisphere and a few sharp waves in the left parasagittal region but no clear epileptiform discharges. Tracing is compatible with diffuse cerebral dysfunction, possibly more from the left hemisphere than the right. HOSPITAL COURSE: This is a pleasant 89-year-old female with a significant medical history for atrial fibrillation, prior PE, obstructive sleep apnea not currently treated, GERD, diabetes, chronic kidney disease, hypothyroidism, and neurogenic bladder with chronic indwelling Brown catheter, who presented after an acute episode, which occurred at home. Patient's daughter found her mother in bed lying half in and half out of the bed. There was question as to whether she experienced some seizure-like activity. Patient's daughter states that she had a glaze-like appearance and was not initially answering questions appropriately, but then a couple of minutes later stated that she was hungry and ate a sandwich and a glass of juice with some improvement in her symptoms. Her initial labs demonstrated a normal CBC. Chemistry panel was unremarkable including negative troponin. Lactic acid was 1.3. Initial vitals demonstrated hypotension with an initial BP of 80/32. Patient underwent CT of the head, which showed no acute findings. Her daughter also noted a swelling over her left hip that had appeared just a few days prior and since then she had greater gait dysfunction. The patient had also been diagnosed with urinary tract infection and had been started on Cipro just a couple of days prior to this acute episode. Carotid study demonstrated no significant stenosis. Patient is unable to undergo MRI as she has a pacemaker in place but a repeat CT scan on hospital day 2 demonstrated again no acute findings that would represent a subacute infarct. Pacemaker was interrogated, which showed no dysrhythmias. Her urinalysis and culture were repeated, which grew yeast. Her Cipro was discontinued and she had a consultation from neurologist Dr. Liu. Initial thought was that perhaps the patient experienced a seizure, perhaps precipitated by Cipro. She did have some residual confusion, perhaps associated with a postictal state. EEG was completed, which showed some diffuse slowing more prominent in the left hemisphere than in the right but no specific epileptiform discharges. Recommendations from Neurology did not include starting any antiepileptic as this was a first occurrence and likely it was a seizure incited by Cipro, which has since been discontinued. Patient's mental status improved to baseline at the time of discharge. She had no additional acute symptoms. The swelling that was noted over her left hip was imaged including x-rays that showed no acute fracture and an ultrasound, which showed a subcutaneous fluid-like collection. This does not appear to be an abscess. Perhaps a lipoma but seems to have collected fairly quickly and does require further monitoring. DISPOSITION AND FOLLOWUP PLAN: The patient is generally weak at baseline and has multiple orthopedic complaints and has had some dysfunction of her prior prosthesis and this acute illness and hospitalization has exacerbated her chronic weakness and patient now requires subacute rehab prior to returning home. She has plans to participate in rehab at [facility] and is subsequently being transferred there. No further antibiotics are necessary for her urinary tract infection. No weightbearing restrictions. Recommend followup of her subcutaneous mass with her primary care provider. JARRETT VAZQUEZ [id number]/[facility] #: [id number] JESSICA
[2017-02-18] MEDS: Insulin LISPRO* 1 UNITS UNIT SUBCUT SCH ×2 (08:08→12:16)
[2017-02-18] MEDS: Gabapentin CAP(*) 300 MG PO SCH (08:12)
[2017-02-18] MEDS: CMCS Dabigatran CAP(NF) 75 MG CAP PO SCH (08:12)
[2017-02-18] MEDS: Omeprazole CAP* 20 MG PO SCH (08:13)
[2017-02-18] MEDS: Furosemide TAB* 20 MG PO SCH (08:13)
[2017-02-18 12:36] VITALS: BP 140/45
--- NOTE | 2017-02-19 01:57 | PN ---
PROGRESS NOTE: DATE OF SERVICE: 02/18/17 LOCATION: She is currently in room 447, bed 2. SUBJECTIVE: No new problems overnight. No seizure activity. She is very pleasant. She is eating well and states that she has been doing very well. Stable. OBJECTIVE: Vitals signs have been stable. She has been afebrile. Pulse rate in the 70s to 80s, blood pressure 120s/50s, respiratory rate 16 to 20, satting 96% to 100% on room air. General: She is a well-nourished, well-developed obese female in no acute distress. She is sitting up in her chair, about to eat breakfast. She is very pleasant. HEENT: She is normocephalic, atraumatic. Sclerae are anicteric. Mucous membranes are moist. She has no teeth. Poor dentition. Neck is supple. Chest is clear to auscultation bilaterally. Cardiovascular is regular rate and rhythm. Abdomen is nontender. Extremities: No edema. Neurologic exam: She is awake, alert, oriented to person, place and time, but this waxes and wanes. Cranial nerves II through XII, her pupils are equal, round and reactive to light. Visual dunham are full. Extraocular muscles are intact. Face is symmetric. Tongue is midline. Palate is symmetric. Motor exam: She spontaneously moves all extremities, antigravity, 4+/5 throughout. No drift. No focal weakness. Sensation is intact to light touch throughout. [id number], rapid alternating movements are intact without tremor. She had an EEG done yesterday, which showed generalized slowing, left greater than right, some disorganization of the background rhythm, few sharp waves in the left parasagittal region, but no clearly formed epileptiform discharges, compatible with diffuse cerebral dysfunction, possibly more in the left hemisphere than the right hemisphere. ASSESSMENT AND PLAN: Ms. Perla is an 89-year-old female, who presented to the hospital with what sounded like a seizure episode, loss of consciousness, some shaking witnessed. She had recently been started on Cipro that was her first seizure ever reported. Since admission to the hospital, her Cipro has been stopped and she has been changed to another antibiotic. She has had no further seizure activity. 1. At this time, this is her only seizure ever reported and the semiology is somewhat consistent with a seizure. With that said, she was started on Cipro which is known to provoke seizures. I would not start her on any medications at this time based on her EEG, her presentation and the fact that she was on that medication at the time. She should be watched with any additional seizure activity. We could consider starting her on medications. 2. She does have some underlying dementia and she would be followed by a neurologist as an outpatient for management of that condition. I would not start her on any dementia medicines as an inpatient. 3. She is to go to a residential today or tomorrow. 4. Dr. Wade will be coming on service today and I will update him on her admission and current clinical status. [id number]/[facility] #: [id number] MTDD
== END 2017-02-18 13:30 | DRG 100 ==
LOC: ED 14:20 → MEDTELE 17:44 → OBSVTOIN 02-16 13:49
PROVIDERS: ADMIT Internal Medicine; ATTEND Internal Medicine
PROC: 4A00X4Z Measurement of Central Nervous Electrical Activity, External Approach (ICD-10-PCS; 2017-02-16)
PROC: 4B02XSZ Measurement of Cardiac Pacemaker, External Approach (ICD-10-PCS; principal; 2017-02-17)
DX: R56.9 Unspecified convulsions (principal); G93.40 Encephalopathy, unspecified; E11.22 Type 2 diabetes mellitus with diabetic chronic kidney disease; I13.0 Hypertensive heart and chronic kidney disease with heart failure and stage 1 through stage 4 chronic kidney disease, or unspecified chronic kidney disease; F03.90 Unspecified dementia, unspecified severity, without behavioral disturbance, psychotic disturbance, mood disturbance, and anxiety; I48.91 Unspecified atrial fibrillation; N39.0 Urinary tract infection, site not specified; T83.511A Infection and inflammatory reaction due to indwelling urethral catheter, initial encounter; I50.22 Chronic systolic (congestive) heart failure; G43.909 Migraine, unspecified, not intractable, without status migrainosus; I08.3 Combined rheumatic disorders of mitral, aortic and tricuspid valves; E66.9 Obesity, unspecified; N18.3 Chronic kidney disease, stage 3 (moderate); N31.9 Neuromuscular dysfunction of bladder, unspecified; G47.33 Obstructive sleep apnea (adult) (pediatric); E78.5 Hyperlipidemia, unspecified; I25.10 Atherosclerotic heart disease of native coronary artery without angina pectoris; K21.9 Gastro-esophageal reflux disease without esophagitis; E03.9 Hypothyroidism, unspecified; Z96.653 Presence of artificial knee joint, bilateral; Z66 Do not resuscitate; E78.00 Pure hypercholesterolemia, unspecified; J45.909 Unspecified asthma, uncomplicated; M81.0 Age-related osteoporosis without current pathological fracture; H91.90 Unspecified hearing loss, unspecified ear; R40.2362 Coma scale, best motor response, obeys commands, at arrival to emergency department; R40.2142 Coma scale, eyes open, spontaneous, at arrival to emergency department; R40.2252 Coma scale, best verbal response, oriented, at arrival to emergency department; R22.9 Localized swelling, mass and lump, unspecified; T36.8X5A Adverse effect of other systemic antibiotics, initial encounter; Z79.01 Long term (current) use of anticoagulants; M16.10 Unilateral primary osteoarthritis, unspecified hip; Z68.36 Body mass index [BMI] 36.0-36.9, adult; Z86.711 Personal history of pulmonary embolism; Z86.73 Personal history of transient ischemic attack (TIA), and cerebral infarction without residual deficits; Z95.0 Presence of cardiac pacemaker; Z90.49 Acquired absence of other specified parts of digestive tract; Z98.84 Bariatric surgery status; Z88.2 Allergy status to sulfonamides; Z88.8 Allergy status to other drugs, medicaments and biological substances; Z88.1 Allergy status to other antibiotic agents; Z91.048 Other nonmedicinal substance allergy status; Z82.49 Family history of ischemic heart disease and other diseases of the circulatory system; Z97.4 Presence of external hearing-aid; Z95.5 Presence of coronary angioplasty implant and graft; Z83.3 Family history of diabetes mellitus
CPT/HCPCS: 36415; 70450; 71010; 80048; 80053; 80061; 81003; 81015; 82607; 82746; 83036; 83090; 83605; 84484; 85025; 85610; 86038; 87040; 87086; 87106; 93005; 93306; 93880; 95816; A9270-GY; G0378; G8978-GP-CL; G8979-GP-CI; J0696; J1956

== ENCOUNTER 2017-08-12 15:32 | Inpatient (IN) | payer MEDICARE, MEDICAID ==
[2017-08-12] MEDS ORDERED: Albuterol 0.5% CONC NEB.SOL* 5 MG/ML 20 ml BOT INH ONE (15:57)
[2017-08-12] MEDS ORDERED: Albuterol 2.5 MG/3 ML NEB.SOL* (0.083%) INH ONE (16:04)
[2017-08-12] MEDS ORDERED: Albuterol 2.5 MG/3 ML NEB.SOL* (0.083%) ONE (16:05)
[2017-08-12 16:17] LABS: ABS Basophils 0.1 10^3/ul (0-0.2); ABS Eosinophils 0 10^3/ul (0-0.6); ABS Lymphocytes 0.5 10^3/ul (1.0-4.8); ABS Monocytes 0.4 10^3/ul (0-0.8); ABS Neutrophils 10.6 10^3/ul (1.5-7.7); ABS Nucleated RBC 0 10^3/ul; Eosinophil % 0.1 % (0-6); Hematocrit 42 % (35-47); Hemoglobin 14.1 g/dl (12.0-16.0); Lymphocyte % 4.4 % (25-47); Mean Corpuscular HGB Conc 34 g/dl (31-36); Mean Corpuscular Hemoglobin 32 pg (27-31); Mean Corpuscular Volume 94 fL (80-97); Mean Platelet Volume 8 um3 (7.4-10.4); Nucleated Red Blood Cells % 0; Platelet Count 186 10^3/ul (150-450); Red Blood Count 4.45 10^6/ul (4.0-5.4); Red Cell Distribution Width 15 % (10.5-15); White Blood Count 11.7 10^3/ul (3.5-10.8)
[2017-08-12 16:25] LABS: INR 1.15 (0.77-1.02)
--- OUTSIDE RECORDS SUMMARY | 2017-08-12 16:25 | XMS REPORT ---
:1925 External Reference #:[id number] Author Organization [facility] Address [address] [address] Phone [phone] Care Team Providers Name Role Phone Wasco DomingaDO Care Team Information Physiotherapy Aide Unavailable Fawad Cho M.D. Primary Care Physician Unavailable Payers Type Date Identification Numbers Payment Provider Subscriber Health Maintenance Policy Number: Medicare Blue Ppo Cosme Perla [facility] [place] [id number] Group Number: [id number] [address] PayID: [id number] [place] [address] Medigap Part B Policy Number: [id number] Medicaid Cosme Perla Group Name: 1 1 [address] PayID: [id number] [place] [address] Health Maintenance Expires: Policy Number: Medicare Blue Cosme Giraldo [facility] ([facility] 02/24/2015 [id number] [facility] Pan PayID: [id number] [address] [address] [place] [address] Health Maintenance Effective: Policy Number: Medicare Blue Cosme Giraldo [facility] ([facility] 06/27/2012 [id number] [facility] Pan Expires: 02/24/2015 PayID: [id number] [address] [address] [place] [address] Problems Date Description Provider Status Onset: 05/07/2013 Atrial fibrillation Herrera Souza M.D. Active Onset: 05/07/2013 Cardiac pacemaker in situ Herrera Souza M.D. Active Onset: 05/07/2013 Coronary arteriosclerosis Herrera D. Brand, M.D. Active Family History Date Family Member(s) Problem(s) Comments General Heart Disease General Diabetes Social History Type Date Description Comments Lives With Alone Occupation Retired Cigarette Use Never Smoked Cigarettes ETOH Use Denies alcohol use Smoking Patient has never smoked Recreational Drug Use Denies Drug Use Daily Caffeine Does Not Consume Caffeine Exercise Type/Frequency Does not exercise Allergies, Adverse Reactions, Alerts Date Description Reaction Status Severity Comments 05/07/2013 Keflex active 05/07/2013 Iodine active 05/07/2013 Tape active 03/28/2015 Sulfa Antibiotics active Medications Medication Date Status Form Strength Qnty SIG Indications Ordering Provider Plaquenil 07/22/ Active Tablets 200mg 30tab 1 by mouth Zackary 2018 s every day Chavo, for 1 week M.D. then 2 by mouth daily ongoing (avoid at same time as Levothroxi ne) Amoxicillin 07/13/ Active Tablets 500mg 60tab 1 by mouth L03.818 Osito 2017 s two times D. a day Karen (finished) Kelly Pradaxa 05/07/ Active Capsules 75mg 1 po bid Herrera 2012 DTiny Souza M.D. 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 every 3 days Allopurinol / Active Tablets 100mg 1 daily Colino, 0000 Idris, DIRECTOR INFORMATION Colchicine / Active Tablets 0.6mg Twice Colino, 0000 daily Idris, DIRECTOR INFORMATION Lyrica / Active Capsules 50mg Twice Colino, 0000 daily Idris, DIRECTOR INFORMATION Prednisone / Active Tablets 20mg once daily Colino, 0000 Idris, DIRECTOR INFORMATION Potassium / Active Tablets ER 20Meq Colino, Chloride Ysabel 0000 Idris, ER DIRECTOR INFORMATION Miralax / Active Powder 3350NF 17 gm Unknown 0000 every day mixed w/ 8 oz water/juic e Natures Tears / Active Solution 0.1-0.3% 1 gtt Unknown 0000 twice a day Oxycodone HCL / Active Tablets 5mg 1 tabs by Unknown 0000 mouth every 6 hours as needed Senna-S / Active Tablets 8.6-50mg Twice Unknown 0000 daily Vitamin D3 / Active Capsules [id number] one by Unknown 0000 mouth once weekly Pantoprazole 03/05/ Hx Tablets DR 40mg 1 tablet Unknown Sodium 2015 - po daily 2016 Metoprolol 05/07/ Hx Tablets ER 50mg 90tab 1 po qd Herrera Succinate ER 2012 - 24H s DTiny Souza, .DTiny 2014 Diltiazem CD 05/07/ Hx Caps ER 24HR 120mg 100ca 1 po qd Herrera 2012 Daphnie Souza, .DTiny 2014 Simvastatin 05/07/ Hx Tablets 20mg 90tab 1 po qd Herrera 2012 Daphnie Souza, .D. 2016 Lisinopril 05/07/ Hx Tablets 20mg 30tab 1 po qd Herrera 2012 Daphnie Souza, .D. 2014 Donepezil HCL / Hx Tablets 10mg 30tab 1 po qd Unknown 0000 - s 2016 Tramadol / Hx Tablets 37.5-325m 90tab 1 po qid Unknown Hydrochloride/A 0000 - g s prn cetaminophen 2016 Pantoprazole / Hx Tablets DR 40mg 90tab 1 po qd Unknown Sodium 0000 - s 2014 Vitamin B / Hx Tablets 30tab 1 po qd Unknown Complex 0000 - s 2014 Nasacort Aq / Hx Aerosol 55mcg/Act 1unit use 1 Unknown 0000 - s spray ea 05/24/ nostril 2017 qhs prn Ipratropium / Hx Solution 0.5-2.5(3 90uni 1 vial in Unknown [place]/Albuter 0000 - )mg/3ML ts nebulizer ol Sulfate 05/24/ three 2017 times a day as needed for asthma Citalopram / Hx Tablets 20mg 30tab 1 po qd Unknown Hydrobromide 0000 - s 2015 Levothyroxine / Hx Tablets 200mcg 90tab 1 po qd Unknown Sodium 0000 - s 2014 Humulin N / Hx Suspension 100Unit/M 1bott as Unknown 0000 - L le1 directed 05/24/ Not Using, 2017 But Has On Hand Gabapentin / Hx Tablets 600mg 60tab 1 tablet Unknown 0000 - s Am, 1 05/24/ tablet 2017 midday and two at bedtime Nystatin / Hx Cream [id number] 60g topically Unknown 0000 - t/GM bid prn 2016 Salonpas / Hx Patches 1.2-5.7-6 prn Unknown 0000 - .3% 2014 Furosemide / Hx Tablets 20mg 1 by mouth Unknown 0000 - every 05/24/ morning 2017 Fluticasone / Hx Suspension 50mcg/Act 2 sprays Unknown Propionate 0000 - each 05/24/ nostril 2017 daily for rhinitis Lisinopril / Hx Tablets 2.5mg 1 by mouth Tammie 0000 - every day Fawad 05/24/ Kelly Valencia Folbic / Hx Tablets 2.5-25-2m 1 tablet Unknown 0000 - g po daily 2016 Clindamycin HCL / Hx Capsules 300mg Unknown 0000 - 2016 Vital Signs Date Vital Result Comment 07/22/2017 Height 59 inches 4'11" Heart Rate 60 /min BP Systolic Sitting 126 mmHg BP Diastolic Sitting 80 mmHg Respiratory Rate 20 /min Pain Level 4 05/25/2017 Height 59 inches 4'11" Weight 189.12 lb Per [place] Heart Rate 60 /min BP Systolic Sitting 122 mmHg BP Diastolic Sitting 74 mmHg Respiratory Rate 18 /min BMI (Body Mass Index) 38.2 kg/m2 Ejection Fraction 50-55% 02/16/2017-echo 07/13/2016 Height 59 inches 4'11" Weight 194.00 lb Heart Rate 88 /min BP Systolic Sitting 118 mmHg BP Diastolic Sitting 70 mmHg Respiratory Rate 16 /min Body Temperature 97.4 F BMI (Body Mass Index) 39.2 kg/m2 04/02/2016 Height 59 inches 4'11" Weight 175.00 lb w/ shoes Heart Rate 88 /min BP Systolic Sitting 102 mmHg Lue, lg cuff BP Diastolic Sitting 70 mmHg Lue, lg cuff Respiratory Rate 16 /min BMI (Body Mass Index) 35.3 kg/m2 Ejection Fraction 40-45% as of 04/01/15 echo 04/24/2015 Height 59 inches 4'11" Weight 206.00 lb with leg brace and shoes Heart Rate 76 /min BP Systolic Sitting 112 mmHg LA large cuff BP Diastolic Sitting 62 mmHg LA large cuff BP Systolic Standing 106 mmHg BP Diastolic Standing 60 mmHg Respiratory Rate 18 /min BMI (Body Mass Index) 41.6 kg/m2 Ejection Fraction 40-45% 04/01/15 04/11/2015 Height 59 inches 4'11" Heart Rate 74 /min BP Systolic Sitting 116 mmHg Ra, LG cuff BP Diastolic Sitting 66 mmHg Ra, LG cuff BP Systolic Standing 108 mmHg Ra BP Diastolic Standing 58 mmHg Ra Respiratory Rate 16 /min Ejection Fraction 40-45% 04/01/15 03/28/2015 Height 59 inches 4'11" Weight 200.00 lb with shoes Heart Rate 80 /min BP Systolic Sitting 100 mmHg LA lg cuff BP Diastolic Sitting 60 mmHg LA lg cuff BP Systolic Standing 110 mmHg LA lg cuff BP Diastolic Standing 60 mmHg LA lg cuff Respiratory Rate 17 /min BMI (Body Mass Index) 40.4 kg/m2 Ejection Fraction 45-50% as of 09/28/13 03/26/2015 Height 59 inches 4'11" Weight 224.00 lb Pain Level 9 BMI (Body Mass Index) 45.2 kg/m2 05/07/2013 Height 59 inches 4'11" Weight 224.00 lb Heart Rate 62 /min BP Systolic Sitting 124 mmHg right arm, large cuff BP Diastolic Sitting 60 mmHg right arm, large cuff BP Systolic Standing 106 mmHg right arm, large cuff BP Diastolic Standing 56 mmHg right arm, large cuff Respiratory Rate 20 /min BMI (Body Mass Index) 45.2 kg/m2 Results Test Date Test Result H/L Range Note Laboratory test 04/14/2015 Surgical Pathology SEE RESULT BELOW 1 finding Pre Cath Panel 04/11/2015 Partial Thrombo 46.0 seconds High 26.0-36.3 Time PTT CBC Auto Diff 04/11/2015 White Blood Count 5.2 10^3/uL 4.8-10.8 Red Blood Count 4.46 10^6/uL 4.0-5.4 Hemoglobin 14.1 g/dL 12.0-16.0 Hematocrit 43 % 35-47 Mean Corpuscular Volume 96 fL 80-97 Mean Corpuscular Hemoglobin 32 pg High 27-31 Mean Corpuscular HGB Conc 33 g/dL 31-36 Red Cell Distribution Width 15 % 10.5-15 Platelet Count 151 10^3/uL 150-450 Mean Platelet Volume 8 um3 7.4-10.4 Abs Neutrophils 3.3 10^3/uL 1.5-7.7 Abs Lymphocytes 1.2 10^3/uL 1.0-4.8 Abs Monocytes 0.5 10^3/uL 0-0.8 Abs Eosinophils 0.1 10^3/uL 0-0.6 Abs Basophils 0.1 10^3/uL 0-0.2 Abs Nucleated RBC 0 10^3/uL Granulocyte % 64.0 % 38-83 Lymphocyte % 23.9 % Low 25-47 Monocyte % 8.8 % 1-9 Eosinophil % 2.2 % 0-6 Basophil % 1.1 % 0-2 Nucleated Red Blood Cells % 0.1 Inr/Protime 04/11/2015 Inr 1.04 0.78-1.07 Basic Metabolic Panel 04/11/2015 Sodium 136 mmol/L 133-145 Potassium 4.4 mmol/L 3.5-5.0 Chloride 98 mmol/L Low 101-111 Co2 Carbon Dioxide 34 mmol/L High 22-32 Anion Gap 4 mmol/L 2-11 Glucose 93 mg/dL 70-100 Blood Urea Nitrogen 24 mg/dL 6-24 Creatinine 1.42 mg/dL High 0.51-0.95 BUN/Creatinine Ratio 16.9 8-20 Calcium 9.9 mg/dL 8.6-10.3 Egfr Non- 35.0 >60 Egfr 45.0 >60 2 Neutrophil Cytoplasmic AB 03/14/2010 C-Anca NEGATIVE 3 P-Anca Final RPT NEGATIVE 3 Anca Reviewed By (SEE NOTE) Negative 3, 4 1 SEE RESULT BELOW Name: COSME PERLA : [address]: Herrera Souza MD Acct: [id number] Unit: [id number] AGE: 89 Location: [facility] Re04/14/15 SEX: F Status: REG REF SPEC: [id number] DENNY: 04/14/[address]: Herrera Souza MD REQ: [id number] RECD: 04/14/15 STATUS: SOUT _ ORDERED: LEVEL I FINAL DIAGNOSIS Pacemaker generator, removal: Foreign body (pacemaker generator) (Gross diagnosis). PRE-OPERATIVE DIAGNOSIS Atrial fibrillation. GROSS DESCRIPTION The specimen is received fresh with no source identified and a requisition labeled, Pacemaker Generator, and consists of a 4.1 x 3.9 x 0.7 cm silver metallic ophthalmic medical assistant. The following inscription is identified: [employer]onic EnPulse [id number] SSIR. Per established hospital medical staff protocol, no tissue is submitted. Gross only. Signed (signature on file) Thad Gonzáles MD 1623 END OF REPORT * ML=Testing performed at Main Lab DEPARTMENT OF PATHOLOGY, [address] [place] [address] Thad Gonzáles M.D. Director [facility] # [id number] 2 Because ethnic data is not always readily available, this report includes an eGFR for both -Americans and non- Americans. The National Kidney Disease Education Program (NKDEP) does not endorse the use of the MDRD equation for patients that are not between the ages of 18 and 70, are , have extremes of body size, muscle mass, or nutritional status, or are non- or non-. According to the National Kidney Foundation, irrespective of diagnosis, the stage of the disease is based on the level of kidney function: Stage Description GFR(mL/min/1.73 m(2)) 1 Kidney damage with normal or decreased GFR 90 2 Kidney damage with mild decrease in GFR 60-89 3 Moderate decrease in GFR 30-59 4 Severe decrease in GFR 15-29 5 Kidney failure <15 (or dialysis) 3 COMMENTS: C ANCA, P ANCA 4 REVIEWED BY THAD GONZÁLES MD Procedures Date CPT Code Description Status 07/19/2017 85460 Pace Maker Eval W/Iterative Adjustment Single Lead Completed 05/25/2017 49780 EKG Tracing & Interpretation Completed 02/17/2017 00865 EKG, Interpretation Only Completed 02/16/2017 29233 EEG Recording Awake & Drowsy Completed 02/16/2017 47214 ECHO Transthorasic Realtime 2D W Doppler & Color Completed [facility] 02/15/2017 30766 EKG, Interpretation Only Completed 11/02/2016 71849 Removal Devitalization Tissue Wound Less Than Equal 20 Completed Square CM 10/21/2016 70272 Debridement Skin,& sq Tissue Completed 10/14/2016 52241 Debridement Skin,& sq Tissue Completed 09/14/2016 74800 Pace Maker Eval W/Iterative Adjustment Single Lead Completed 04/02/2016 37675 Pace Maker Eval W/Iterative Adjustment Single Lead Completed 10/07/2015 96604 Pace Maker Eval W/Iterative Adjustment Single Lead Completed 04/14/2015 93662 Removal Pacemaker W/Replacement Of Pacemaker Pulse Completed Generator 04/11/2015 01849 Interrogation Device Eval In Person W/DR Completed Analysis,Single,Dual,Mul 04/01/2015 73115 ECHO Transthorasic Realtime 2D W Doppler & Color Completed [facility] 03/28/2015 95916 EKG Tracing & Interpretation Completed 09/28/2013 87592 ECHO Transthorasic Realtime 2D W Doppler & Color Completed [facility] 09/27/2013 99488 EKG, Interpretation Only Completed 04/23/2013 03151 Pace Maker Eval W/Iterative Adjustment Single Lead Completed 10/24/2012 29935 Pace Maker Eval W/Iterative Adjustment Single Lead Completed 10/24/2012 86150 EKG Tracing & Interpretation Completed 01/05/2005 68925 Holter Monitor Completed 03/21/2003 88519 Color Doppler Completed 03/21/2003 35177 Pulse Doppler & Continuous Wave Completed 03/21/2003 82455 Echocardiogram Completed Encounters Type Date Location Provider CPT E/M Dx Office Visit 05/25/2017 [facility] Herrera Souza, [address] I48.2 11:15a Reynaldo Mendoza Z95.0 I25.10 Z79.01 Office Visit 02/18/2017 11:23a [facility] Miguel Liu 02115 R41.Toma MMarquez R25.8 F03.90 Office Visit 02/17/2017 11:23a [facility] Miguel Liu, [address]65[address] R41.Toma Mendoza R25.8 F03.90 Office Visit 02/17/2017 9:10a [facility] Marshall Rehman, [address]5004 R41.89 Assoc,pc JARRETT Hospitalists N30.00 I48.2 Z92.89 Office Visit 02/16/2017 11:22a [facility] Miguel Liu 37153 R41.82 MMarquez R25.8 F03.90 Office Visit 02/16/2017 9:10a [facility] Assoc,[place] [address] R41.89 Hospitalists I48.2 Z92.89 N30.00 Office Visit 02/15/2017 2:54p [facility], [address] R41.82 Assoc, Hospitalists N.P. I48.91 E11.8 I10 Office Visit 11/18/2016 11:47a [facility] Hemant GiraldoTiny Sanderson, [address] I87.311 At [facility] M.DTiny E11.622 Office Visit 10/14/2016 2:14p [facility] Hemant EnzoTiny Sanderson, [address] I87.311 At [facility].D. E11.622 Office Visit 07/13/2016 10:30a [facility] Osito Eller [address] L03.818 Infectious Diseases Kelly Jones L30.4 Office Visit 06/14/2016 9:10a [facility] Osito Jones, 74803 N61.0 Infectious Irish Mendoza L30.4 R92.8 E11.9 Office Visit 06/14/2016 10:16a [facility], Anthony Varma, 25777 A41.9 Hospitalists Kelly L03.818 E11.22 N18.3 Office Visit 06/13/2016 10:15a [facility], Anthony Varma, [address]321 A41.9 Hospitalists Kelly L03.818 E11.22 N18.3 Office Visit 06/12/2016 10:15a [facility], Aniceto Mai M.D. 22146 A41.9 Hospitalists L03.818 E11.22 N18.3 Office Visit 06/11/2016 10:14a [facility], Aniceto Mai M.D. 10681 A41.9 Hospitalists L03.818 E11.22 N18.3 Office Visit 06/11/2016 9:00a [facility] Osito Eller 75342 L03.313 Infectious Irish Jones M.D. N61.0 B37.2 R92.8 G93.40 Office Visit 06/10/2016 10:10a [facility] Assoc, Lorena Disla, 38765 A41.9 Hospitalists Kelly L03.818 E11.22 N18.3 Office Visit 04/02/2016 11:00a [facility] Herrera Souza, [address]3089 I49.5 [facility] Kelly Z95.0 I48.2 Office Visit 06/24/2015 2:08p [facility], 12776 L03.818 Assoc, Hospitalists DIRECTOR INFORMATION E66.01 I48.91 Office Visit 06/23/2015 2:07p [facility], 66044 L03.818 Assoc, Hospitalists DIRECTOR INFORMATION E66.01 I48.91 Office Visit 06/22/2015 2:07p [facility], Lianna Kelly N.P. 51821 L03.818 Hospitalists E66.01 I48.91 Office Visit 06/21/2015 2:06p [facility], Lianna Kelly, N.P. 82889 L03.818 Hospitalists E66.01 I48.91 Office Visit 06/20/2015 2:05p [facility], Aniceto Mai M.D. 12495 L03.818 Hospitalists E66.01 I48.91 Office Visit 04/11/2015 12:30p [facility], [address]75 I48.2 Reynaldo Mendoza I25.10 Office Visit 03/28/2015 1:45p [facility] [address]78 I25.10 [facility] Kelly I48.2 R06.02 Office Visit 03/26/2015 9:30a [facility] Milton M.D. 61563 M17.0 C.M.A. M84.462A T84.013A Office Visit 10/04/2013 1:03p [facility], Vidya Jordan, 28932 790.7 Hospitalists N.P. 995.91 682.2 414.01 Office Visit 10/03/2013 1:02p [facility], Edilberto Abdalla, 21952 790.7 Hospitalists N.P. 995.91 682.2 414.01 Office Visit 10/02/2013 2:28p [facility] Osito Jones, 24606 041.02 Infectious Diseases Kelly 790.7 567.22 724.2 Office Visit 10/02/2013 1:02p [facility], Edilberto Abdalla, 03573 790.7 Hospitalists N.P. 995.91 682.2 414.01 Office Visit 10/01/2013 3:03p [facility] Osito العراقيTiny Karen, 37207 041.02 Infectious Diseases Kelly 790.7 680.2 Office Visit 10/01/2013 1:00p [facility], Edilberto Abdalla, 57895 414.01 Hospitalists N.P. 790.7 995.91 682.2 Office Visit 09/30/2013 12:58p [facility], Lianna Kelly N.P. 80642 790.7 Hospitalists 995.91 682.2 414.01 Office Visit 09/29/2013 12:56p [facility], Lianna Kelly N.P. 14072 790.7 Hospitalists 995.91 682.2 414.01 Office Visit 09/28/2013 12:55p [facility], Lianna Kelly N.P. 59089 790.7 Hospitalists 995.91 382.2 414.01 Office Visit 09/28/2013 2:44p [facility] Osito العراقيTiny Karen, 03540 041.02 Infectious Diseases Kelly 790.7 680.2 Office Visit 09/27/2013 12:53p [facility], Lianna Kelly N.P. 03747 790.7 Hospitalists 682.2 414.01 995.91 Office Visit 09/26/2013 12:53p [facility], Andre Peterson, 74752 780.2 Hospitalists Kelly 682.2 414.01 995.91 Office Visit 05/07/2013 2:45p [facility] Herrera Souza, 79813 427.31 Paper Inserter At [facility] Kelly V45.01 414.01 Office Visit 11/19/2012 2:01p [facility],pc Aniceto Mai M.D. 08624 782.1 Hospitalists 780.79 008.8 Office Visit 11/18/2012 2:01p [facility],carmen Peterson 57847 782.1 Hospitalists Kelly 780.79 Plan of Care Future Appointment(s):09/07/2017 8:40 am - Zackary Tony M.D. at [facility]07/22/2017 - Zackary Tony M.D.M06.4 Inflammatory polyarthropathyFollow up:Follow up in 3 to 4 weeks or sooner if eawalmO50.899 Other ad terminal makeup operator (current) drug therapyReferral:Zackary Ruth MD, JwuvircaxjydnP78.9 Gout, zupayvnsivmZ14.52 long term care pharmacist (current) use of systemic steroids
--- NOTE | 2017-08-12 16:33 | RAD ---
INDICATION: Cough. Right lower lobe rhonchi COMPARISON: A 22,017 TECHNIQUE: An AP portable view obtained at 1620 hours is submitted. FINDINGS: Bones/Soft Tissues: There are no acute bony findings. There are surgical clips left upper quadrant. There is a left-sided cardiac pacemaker Cardiomediastinal: The cardiomediastinal silhouette is normal. Lungs: There are no definite infiltrates. There is mild bibasilar hypoventilation. Pleura: There are no pleural effusions. Other: None IMPRESSION: MILD BY BASILAR HYPOVENTILATION. NO DEFINITE INFILTRATES
[2017-08-12 16:34] LABS: EGFR Non-African American 47.8 (>60)
[2017-08-12] MEDS ORDERED: NS 0.9% 1000 ML* 1,000 ML IV ONE (16:54)
--- NOTE | 2017-08-12 17:16 | RAD ---
INDICATION: Intracranial injury COMPARISON: A 2016 TECHNIQUE: Noncontrast axial source images were acquired from the skull base to the vertex. FINDINGS: Ventricles/sulci: There is cortical atrophy with compensatory dilatation of the CSF spaces. Brain parenchyma: There is periventricular and subcortical white matter change compatible with chronic ischemia. Intracranial hemorrhage:None. Extra-axial spaces: There are no abnormal extra axial fluid collections or evidence of extra-axial mass. Calvarium: There is no calvarial fracture or other calvarial abnormality. Scalp: There is a right frontal scalp hematoma. Paranasal sinuses/mastoid: The paranasal sinuses and mastoid air cells are clear. Other: None. IMPRESSION: No acute intracranial findings. Atrophy with chronic microvascular ischemic change. Right frontal scalp hematoma
[2017-08-12] MEDS ORDERED: Cefepime(*) 2 GM in NS 0.9% 50 ML* 50 ML IVPB ONE (17:18)
[2017-08-12] MEDS ORDERED: Levofloxacin 750 MG IVPREMIX(* 750 MG/150 ML BAG IVPB ONE (17:18)
[2017-08-12 18:46] LABS: Urine Appearance Cloudy; Urine Blood 2+ (Negative); Urine Color Yellow; Urine Ketones Negative (Negative); Urine Protein Negative (Negative); Urine Specific Gravity 1.006 (1.010-1.030); Urine Urobilinogen Negative (Negative)
[2017-08-12] MEDS ORDERED: Ondansetron INJ* 2 MG/ML VIAL IV PRN (19:03)
[2017-08-12] MEDS ORDERED: Dextrose 50% Syringe 50 ML* 25 GM/50 ML SYRINGE IV PUSH PRN (19:03)
[2017-08-12] MEDS ORDERED: Acetaminophen TAB* 325 MG PO PRN (19:03)
[2017-08-12] MEDS ORDERED: Albuterol 2.5 MG/3 ML NEB.SOL* (0.083%) INH PRN (19:14)
[2017-08-12] MEDS ORDERED: NS 0.9% 1000 ML* 1,000 ML IV SCH (19:15)
[2017-08-12] MEDS ORDERED: NS 0.9% 50 ML* 0 ML ONE (19:41)
[2017-08-12] MEDS ORDERED: Albuterol/Ipratropium NEB.SOL* Albuterol 2.5 MG/Ipratropium 0.5 MG 3 ML INH SCH (20:00)
[2017-08-12] MEDS ORDERED: fentaNYL PATCH 50 MCG/HR TRANSDERM SCH (20:00)
[2017-08-12] MEDS ORDERED: Cefepime 2 GM in Dextrose(*) 2 GM/50 ML BAG IV ONE (20:00)
--- NOTE | 2017-08-12 20:01 | ED ---
Wei Sims Jennifer, scribed for Feroz Choe MD on 08/12/17 at 1551 . Complex/Multi-Sys Presentation - HPI Summary HPI Summary: The patient is an 89 year old female who fell out of her wheelchair earlier today but does not remember the incident. She has a bruise on her forehead, abdominal tenderness, skin tear on her right hand. The patient additionally has had a productive cough and fever for three weeks and coughs up brown sputum. She complains of pain in her legs and difficulty breahting. She is a resident of [facility]. The patient has a history of chronic Afib, prior UTIs, intermodal truck driver use of steroids, gout, chronic kidney disease, stroke, and high cholesterol. She is DNR and DNI. - History Of Current Complaint Time Seen by Provider: 08/12/17 15:38 Hx Obtained From: Patient, EMS Onset/Duration: Lasting Weeks - cough and fever for three weeks, Still Present Timing: Constant Severity Currently: Mild Severity Initially: Mild Associated Signs And Symptoms: Positive: Other - Fall, amnesia of event, bruise on forehead, abdominal tenderness, skin tear on right hand, productive cough with brown sputum, fever, pain in legs, difficulty breathing. - Allergies/Home Medications Allergies/Adverse Reactions: Allergies Allergy/AdvReac Type Severity Reaction Status Date / Time Adhesive Tape Allergy Rash And Verified 10/06/16 12:38 Itching cephalexin Allergy Rash Verified 08/12/17 19:35 ciprofloxacin Allergy See Comment Verified 08/12/17 19:36 iodine Allergy Rash Verified 08/12/17 19:37 Sulfa (Sulfonamide Allergy Unknown Verified 08/12/17 19:37 Antibiotics) Reaction Details Home Medications: Home Medications Acetaminophen [Acetaminophen Extra Strength] 1,000 mg PO BID PRN 08/12/17 [ History Confirmed 08/12/17] Al Hydrox/Mg Hydrox/Azam BULK* [Mylanta - BULK BOT*] 30 ml PO DAILY PRN [History Confirmed 08/12/17] Albuterol/Ipratropium NEB.DALIA* [Duoneb (Albuterol 2.5 MG/Ipratropium 0.5 MG)] 1 neb INH TID PRN 08/12/17 [History Confirmed 08/12/17] Allopurinol TAB* [Zyloprim 100 MG TAB*] 100 mg PO DAILY 08/12/17 [History Confirmed 08/12/17] Cholecalciferol TAB* [Vitamin D TAB*] 50,000 unit PO .TWICE A MONTH 08/12/17 [ History Confirmed 08/12/17] Colchicine* [Colcrys*] 0.6 mg PO QAM 08/12/17 [History Confirmed 08/12/17] Dextran 70/Hypromellose [Nature's Tears Eye Drops] 1 drop BOTH EYES BID [History Confirmed 08/12/17] Hydroxychloroquine TAB* [Plaquenil TAB*] 400 mg PO DAILY 08/12/17 [History Confirmed 08/12/17] Polyethylene Glycol 3350* [Miralax*] 17 gm PO DAILY 08/12/17 [History Confirmed 08/12/17] Potassium Chlor TAB* [Klor Con ER TAB*] 40 meq PO DAILY 08/12/17 [History Confirmed 08/12/17] Pregabalin CAP(*) [Lyrica CAP(*)] 50 mg PO BID 08/12/17 [History Confirmed 08/12] Sennosides/Docusate Sodium [Senna-S Tablet] 2 tab PO BID 08/12/17 [History Confirmed 08/12/17] guaiFENesin LIQ* [Robitussin*] 30 ml PO BID 08/12/17 [History Confirmed 08/12/17 ] predniSONE TAB* [Deltasone TAB*] 15 mg PO DAILY 08/12/17 [History Confirmed ] PMH/Surg Hx/FS Hx/Imm Hx Endocrine/Hematology History: Reports: Hx Diabetes, Hx Thyroid Disease - hypothyroid, levothyroxine am, Hx Anemia Cardiovascular History: Reports: Hx Angina, Hx Atrial Fibrillation - Chronic, Hx Congestive Heart Failure, Hx Coronary Artery Disease, Hx Hypercholesterolemia , Hx Pacemaker/ICD, Hx Syncope, Other Cardiovascular Problems/Disorders Denies: Hx Hypotension, Hx Hypertension Respiratory History: Reports: Hx Asthma, Hx Pulmonary Embolism, Hx Seasonal Allergies Denies: Hx Chronic Obstructive Pulmonary Disease (COPD) GI History: Reports: Hx Gall Bladder Disease - Cholecystectomy, Hx Gastroesophageal Reflux Disease, Hx Gastrointestinal Bleed, Hx Ulcer Comment Only: Other GI Disorders - GASTRIC ULCER W/ HEMORRHAGE History: Reports: Hx Chronic Renal Failure, Hx Renal Disease - CHRONIC, STAGE 3, Other Problems/Disorders - LOW GFR RENAL INSUFFIENCY, prior UTIs Denies: Hx Dialysis Musculoskeletal History: Reports: Hx Arthritis, Hx Osteoporosis, Other Musculoskeletal History - osteoarthritis Sensory History: Reports: Hx Contacts or Glasses, Hx Vision Problem, Hx Hearing Aid - hearing aides sent home with family, Hx Hearing Problem Opthamlomology History: Reports: Hx Contacts or Glasses, Hx Vision Problem Neurological History: Reports: Hx Dementia, Hx Headaches, Hx Migraine, Hx Transient Ischemic Attacks (TIA) Denies: Hx Developmental Delay, Hx Nerve Disease, Hx Seizures, Hx Spinal Cord Injury, Other Neuro Impairments/Disorders Psychiatric History: Denies: Hx Anxiety, Hx Eating Disorder, Hx of Violent Episodes Against Others - Cancer History Hx Chemotherapy: No Hx Radiation Therapy: No - Surgical History Surgery Procedure, Year, and Place: bilateral knee replacement, breast reduction , stent placement, pacer placement, cholecystecomy, bariatric surgery, Hx Anesthesia Reactions: No Infectious Disease History: No Infectious Disease History: Reports: Hx Shingles - 20 yrs ago Denies: Hx Clostridium Difficile, Hx Hepatitis, Hx Human Immunodeficiency Virus (HIV), Hx of Known/Suspected MRSA, Hx Tuberculosis, Traveled Outside the [place] in Last 30 Days - Family History Known Family History: Positive: Cardiac Disease, Hypertension, Diabetes - Social History Alcohol Use: None Hx Substance Use: No Substance Use Type: Reports: None Hx Tobacco Use: No Smoking Status (MU): Never Smoked Tobacco Review of Systems Positive: Fever, Other - Bruise on forehead, skin tear on right hand. Negative : Chills Negative: Erythema Negative: Sore Throat Negative: Chest Pain Positive: Shortness Of Breath, Cough - brown sputum Positive: Abdominal Pain. Negative: Vomiting, Nausea Negative: dysuria, hematuria Positive: Other - Pain in legs Negative: Rash Neurological: Negative - Dizziness All Other Systems Reviewed And Are Negative: Yes Physical Exam - Summary Physical Exam Summary: Constitutional: Well-developed, Well nourished, Alert. (-) Distressed Skin: Warm, Dry HENT: Normocephalic; Atraumatic. Dry mucous membranes. Eyes: Conjunctiva normal Neck: Musculoskeletal ROM normal neck. (-) JVD, (-) Stridor, (-) Tracheal deviation Cardio: Rhythm regular, rate normal, Heart sounds normal; Intact distal pulses; The pedal pulses are 2+ and symmetric. Radial pulses are 2+ and symmetric. (-) Murmur Pulmonary/Chest wall: Effort normal. (-) Respiratory distress, Rhonchi on right lower lung field. Abd: Soft, (-) Tenderness, (-) Distension, (-) Guarding, (-) Rebound Musculoskeletal: +1 pitting edema to both ankles. Lymph: (-) Cervical adenopathy Neuro: Alert, Oriented x3 Psych: Mood and affect Normal Triage Information Reviewed: Yes Vital Signs On Initial Exam: Initial Vitals Temp Pulse Resp BP Pulse Ox 98.5 F 109 20 142/85 95 08/12/17 15:35 08/12/17 15:35 08/12/17 15:35 08/12/17 15:35 08/12/17 15:35 Vital Signs Reviewed: Yes Diagnostics - Vital Signs Vital Signs Temp Pulse Resp BP Pulse Ox 08/12/17 15:35 98.5 F 109 20 142/85 95 - Laboratory Result Diagrams: 08/12/17 16:00 08/12/17 16:00 Lab Statement: Any lab studies that have been ordered have been reviewed, and results considered in the medical decision making process. - Radiology CXR Xray Interpretation: Positive (See Comments) - MILD BY BASILAR HYPOVENTILATION. NO DEFINITE INFILTRATES. Dr. Choe has reviewed this report. Radiology Interpretation Completed By: Radiologist - CT Brain CT CT Interpretation: No Acute Changes - No acute intracranial findings. Atrophy with chronic microvascular ischemic change. Right frontal scalp hematoma. Dr. Choe has reviewed this report. CT Interpretation Completed By: Radiologist - EKG 16:07 EKG Rhythm: Atrial Fibrillation - 101 BPM EKG Interpretation: No STEMI Complex Multi-Symp Course/Dx Assessment/Plan: The patient is an 89 year old female who fell out of her wheelchair earlier today but does not remember the incident. She has a bruise on her forehead, abdominal tenderness, skin tear on her right hand, and complains of fever and cough for three weeks. In the ED course the patient was given Albuterol. EKG showed Afib at 101 BPM. CXR shows MILD BY BASILAR HYPOVENTILATION. NO DEFINITE INFILTRATES. CT Brain shows no acute intracranial findings. Influenza A and B were negative. The patient is diagnosed with healthcare associated pneumonia, sepsis, fall, scalp contusion. [place] [facility] [place] - Diagnoses Provider Diagnoses: Healthcare-associated pneumonia, Sepsis, Fall, Scalp contusion Discharge - Discharge Plan Condition: Good Disposition: ADMITTED TO [facility] documentation as recorded by the Wei page Jennifer accurately reflects the service I personally performed and the decisions made by me, Feroz Choe MD.
[2017-08-12] MEDS: Pregabalin CAP(*) 50 MG PO SCH (22:29)
[2017-08-12] MEDS: CMCS Dabigatran CAP(NF) 75 MG CAP PO SCH (22:30)
--- NOTE | 2017-08-12 23:31 | HP ---
HISTORY AND PHYSICAL: ADDENDUM: ASSESSMENT AND PLAN: Question of syncope. Again, I question if the patient can remember if she passed out or not. She may have just fallen, but she did fall off of her wheelchair. Minimally, I am going to again cycle her troponin. I think the troponins are elevated probably secondary to demand ischemia and underlying infection. I will cycle the troponins, place her on telemetry and I will check orthostatic blood pressures. She does not stand. She is wheelchair bound due to hardware failure on her right knee from a total knee replacement, so I will again check orthostatics with her lying and sitting up and I will also place her on telemetry and we will monitor her. We can consider an echo, but she did have one in January. JAYCE MCNEIL, WREATH MAKER [id number]/[facility] #: [id number] [email or web address]
--- NOTE | 2017-08-12 23:31 | HP ---
HISTORY AND PHYSICAL: ADDENDUM: ASSESSMENT AND PLAN: 1. Rheumatoid arthritis. The patient is on Plaquenil and prednisone at 50 mg a day. I will increase it to 60 mg a day to help her breathing. We will monitor her. If she becomes hypotensive, we will consider stress-dose steroids in the form of hydrocortisone. 2. History of congestive heart failure. At this point, she is on Bumex 2 mg twice a day. We will hold this and we will diurese her as needed. We will follow. We will monitor her Is and Os closely. JAYCE MCNEIL, MOLECULAR PHYSICIST [id number]/[facility] #: [id number] JESSICA
--- NOTE | 2017-08-12 23:40 | HP ---
TWO ADDENDUMS NOW INCLUDED ON THIS REPORT CC: [facility] * HISTORY AND PHYSICAL: DATE OF ADMISSION: 08/12/17 PRIMARY CARE PROVIDER: [facility]. ATTENDING PHYSICIAN WHILE IN THE HOSPITAL: Soumya Hendrix MD * (report dictated by Rafiq Galvan NP). CHIEF COMPLAINT: 1. Chills. 2. Cough. HISTORY OF PRESENT ILLNESS: Ms. Perla is an 89-year-old female patient. She has multiple medical problems. She has a history of Afib, obesity, ELDA, does not wear a CPAP, hypertension, history of PE on chronic Pradaxa, history of CVA , CAD, GERD, diabetes, Strep bacteremia, cellulitis, CKD, neurogenic bladder with chronic Brown, hypothyroidism, history of OK and mild dementia. She comes in to our ER today stating that over the last week she has had a worsening cough that has been productive of a mucopurulent type sputum. She has noticed that she has became more short of breath particularly with minimal exertion. She said she had 1 episode of vomiting a few days ago. She does not know the specifics of the vomiting or if she has had any abdominal pain. She states she cannot remember. She does not think she had any diarrhea, but she definitely knows that she has been coughing up some green type sputum. She does state that most people at [facility] have been hill and she did receive prophylactic Tamiflu. There was no reported fever according to the daughter from [facility], but there has been certainly documented cases of flu and the family was concerned today because she was sitting in a wheelchair, she does not walk at baseline. She does not really recall if she fell or not. She states she was in a wheelchair and the next thing she knew was she was on the floor. The question is if she had a loss of consciousness or if she just cannot remember the event because of her dementia. She came in to the ED, was evaluated. There was concern that she may have early pneumonia. Her white count was mildly elevated. It was noted that her lactic acid was 3.3 and it was also noted that she had a troponin of 0.06. We were asked to evaluate for admission. PAST MEDICAL HISTORY: Significant for: 1. A-fib. 2. Obesity. 3. ELDA. 4. Hypertension. 5. Hyperlipidemia. 6. PE. 7. CVA x2. 8. Diabetes. 9. GERD. 10. CAD 11. Strep bacteremia in the past. 12. Cellulitis. 13. CKD. 14. Neurogenic bladder, with chronic Brown. 15. Hypothyroidism. 16. History of OK. 17. Dementia. PAST SURGICAL HISTORY: She has had a pacemaker placement. She has had bilateral total knee replacements. She has had gastric bypass. She has had lap bashir and she has had cardiac catheterization with stent. HOME MEDICATIONS: According to the list provided includes: 1. Senna 2 tablets p.o. b.i.d. 2. Prednisone 15 mg daily. 3. Pradaxa 75 mg p.o. twice a day. 4. Potassium 40 mEq daily. 5. Plaquenil 400 mg daily. 6. Nature's Tears 1 drop both eyes b.i.d. 7. MiraLAX 17 g daily. 8. Lyrica 50 mg p.o. b.i.d. 9. Synthroid 150 mcg p.o. daily. 10. Robitussin 30 cc p.o. b.i.d. 11. DuoNeb 1 neb t.i.d. as needed. 12. Mylanta 30 cc p.o. daily as needed. 13. Fentanyl patch 50 mcg every 72 hours topically. 14. Colchicine 0.6 mg p.o. daily. 15. Vitamin D 50,000 units p.o. twice a month. 16. Bumex 2 mg p.o. b.i.d. 17. Allopurinol 100 mg daily. 18. Tylenol Extra Strength 1000 mg twice a day as needed. ALLERGIES: To medications include TAPE, KEFLEX, CIPRO, IODINE, and SULFA DRUGS. FAMILY HISTORY: Both her parents have history of heart attack. SOCIAL HISTORY: She does not smoke. She does not drink. Surrogate decision maker is her daughter. REVIEW OF SYSTEMS: There is no documented fever. She did admit to having some chills. There was no significant weight change. There was no double vision. She denies having any ear discharge. There is no rhinorrhea. She does admit to having a cough, which has been now productive of mucopurulent type sputum. She denies having any chest pain. There is no orthopnea. No nocturnal dyspnea. She denies having any abdominal pain. There was one episode of nausea and vomiting. No dysuria, no frequency. There was a question of loss of consciousness today. No seizure. No pruritus and no skin ulcerations. Review of 14 systems completed, all others negative. PHYSICAL EXAMINATION GENERAL: At this time, Ms. Perla is an 89-year-old female patient. She is chronically ill appearing. She is sitting in the ED stretcher. She does not appear to be in any acute respiratory distress. VITAL SIGNS: Blood pressure 143/85, pulse of 109, respirations 20, O2 sat 95% on room air, temperature 98.5. HEENT: Head is atraumatic. Eyes: Sclerae anicteric and not pale. Throat: Oral mucosa appears to be dry. No oropharyngeal erythema. NECK: Supple. LUNGS: She had wheezing noted on the right side and also some rhonchi bilaterally in the upper lobes. She had equal diaphragmatic expansion. HEART: Sounds S1, S2. Irregularly irregular rate. No murmurs, rubs, or gallops. ABDOMEN: Soft. It is flat, nontender. Bowel sounds present. EXTREMITIES: Pulses 2+ throughout. She has no peripheral edema. Distal CSM checks are intact. She has limited range of motion in the lower extremities. She is moving upper extremities with 5/5 strength. NEUROLOGIC: She is awake. She is alert to herself, but she is confused to month. She does know the place where she resides at. Her speech is clear. Tongue is midline. She has no gross focal deficits. SKIN: Intact. LABORATORY DATA/DIAGNOSTIC STUDIES: WBC 11.7, RBC 4.45, hemoglobin 14.1, hematocrit 42, platelet count 186,000. INR 1.15. PTT of 42.4. Sodium 136, potassium 4.2, chloride 97, bicarb 31, BUN 23, creatinine 1.08 that is near her baseline. The glucose is 337, lactic is 3.3, calcium 11, total bili 0.6. AST 30, ALT 29, alk phos 89. Troponin 0.06. Albumin of 3.2. Urine with 2+ blood, positive nitrites, 2+ leukocyte esterase, 3+ WBC, 1+ bacteria, 3+ glucose. Flu swab negative. Brain CT obtained today: No acute intracranial findings. Atrophy with chronic microvascular ischemic change. Right front scalp hematoma. Chest x-ray: Mild bibasilar hypoventilation, no definite infiltrates. EKG today showed atrial fibrillation. No ST elevations or T inversions. Rate of 101. Old medical records were reviewed. She had an echo in January 2017, EF of 50% to 55%. Old medical records reviewed. ASSESSMENT AND PLAN: Ms. Perla is an 89-year-old female patient with multiple medical problems coming into the ED today with complaints of cough, chills, not feeling well for the last week. We were asked to evaluate for admission. She will be admitted under inpatient status for: 1. Pneumonia versus bronchitis. At this point, I suspect that she probably has an early pneumonia. She has been coughing up mucopurulent type sputum. She had a white count and left shift. I am going to get sputum culture, Legionella antigen, strep pneumo antigen, blood cultures, repeat her lactic, hydrate her which has been started here in the ED. Continue her on Levaquin. I think the source is probably respiratory. I do not think she has urinary tract infection. She has a chronic Brown. This is probably colonization. I am just going to continue Levaquin, treat the respiratory tract at this point. We will monitor. I have ordered steroids. In addition to this, I have ordered nebs and we will continue to follow. 2. Atrial fibrillation. Her rate is now 97. We will continue that. We will continue her Pradaxa and monitor her rate. We will monitor. 3. History of hyperlipidemia. Continue the medications as prescribed. 4. History of pulmonary embolism. She is on Pradaxa. We will continue with secondary prevention. 5. History of cerebrovascular accident, on Pradaxa. Continue with secondary prevention. 6. Coronary artery disease. Continue her medications as prescribed. 7. Gastroesophageal reflux disease. Continue medications as prescribed. 8. History of diabetes. I am going to go ahead and put her on a lispro sliding scale. 9. History of chronic kidney disease. Creatinine is stable. Monitor. 10. Neurogenic bladder. Again with a positive UA. At this point, I think that this is probably colonization and is not an active infection at this point. We will monitor. 11. Hypothyroidism. Continue her Synthroid. 12. Chronic pain. Continue her fentanyl patch. 13. DVT prophylaxis. We will place her on Pradaxa. 14. Elevated calcium. I do note that her calcium is 11. We will repeat this tomorrow. After hydration, we will monitor. This could be secondary to dehydration. 15. Troponin elevation. This is probably secondary to demand ischemia. We will go ahead and trend these. She is not having any active chest pain. 16. Code status is DNR. 17. Fluids, electrolytes, nutrition. She can have a heart-healthy diet. TIME SPENT: Time spent on the admission was 60 minutes, greater than half the time was spent [id number] with the patient obtaining my history and physical, other half of the time spent going over the plan of care with the patient and implementing plan of care. I did discuss plan of care with my attending, Dr. Hendrix, she is in agreement. RAFIQ GALVAN NP ADDENDUM NO.1: ASSESSMENT AND PLAN: 1. Rheumatoid arthritis. The patient is on Plaquenil and prednisone at 50 mg a day. I will increase it to 60 mg a day to help her breathing. We will monitor her. If she becomes hypotensive, we will consider stress-dose steroids in the form of hydrocortisone. 2. History of congestive heart failure. At this point, she is on Bumex 2 mg twice a day. We will hold this and we will diurese her as needed. We will follow. We will monitor her Is and Os closely. RAFIQ GALVAN NP ADDENDUM NO.2: ASSESSMENT AND PLAN: Question of syncope. Again, I question if the patient can remember if she passed out or not. She may have just fallen, but she did fall off of her wheelchair. Minimally, I am going to again cycle her troponin. I think the troponins are elevated probably secondary to demand ischemia and underlying infection. I will cycle the troponins, place her on telemetry and I will check orthostatic blood pressures. She does not stand. She is wheelchair bound due to hardware failure on her right knee from a total knee replacement, so I will again check orthostatics with her lying and sitting up and I will also place her on telemetry and we will monitor her. We can consider an echo, but she did have one in January. RAFIQ GALVAN, DENTAL MOLD MAKER [id number]/[facility] #: [id number]/[facility] #: [id number]/[facility] #: [id number] JESSICA
[2017-08-13 05:08] LABS: ABS Basophils 0.1 10^3/ul (0-0.2); ABS Eosinophils 0.1 10^3/ul (0-0.6); ABS Lymphocytes 1.3 10^3/ul (1.0-4.8); ABS Monocytes 0.6 10^3/ul (0-0.8); ABS Neutrophils 7.7 10^3/ul (1.5-7.7); ABS Nucleated RBC 0 10^3/ul; Eosinophil % 0.7 % (0-6); Hematocrit 39 % (35-47); Hemoglobin 13.2 g/dl (12.0-16.0); Lymphocyte % 13.4 % (25-47); Mean Corpuscular HGB Conc 34 g/dl (31-36); Mean Corpuscular Hemoglobin 31 pg (27-31); Mean Corpuscular Volume 93 fL (80-97); Mean Platelet Volume 8 um3 (7.4-10.4); Nucleated Red Blood Cells % 0; Platelet Count 177 10^3/ul (150-450); Red Cell Distribution Width 15 % (10.5-15); White Blood Count 9.7 10^3/ul (3.5-10.8)
[2017-08-13 05:24] LABS: EGFR Non-African American 49.3 (>60)
[2017-08-13] MEDS: Levothyroxine TAB* 150 MCG TAB PO SCH (06:58)
[2017-08-13] MEDS: fentaNYL Patch Check Q Shift 1 NOTE SCH ×2 (07:26→21:36)
[2017-08-13] MEDS: Insulin LISPRO* 1 UNITS UNIT SUBCUT SCH ×3 (08:34→17:52)
[2017-08-13] MEDS: Colchicine* 0.6 MG TAB PO SCH (08:50)
[2017-08-13] MEDS: CMCS Dabigatran CAP(NF) 75 MG CAP PO SCH ×2 (08:50→21:34)
[2017-08-13] MEDS: predniSONE TAB* 20 MG PO SCH (08:51)
[2017-08-13] MEDS: Pregabalin CAP(*) 50 MG PO SCH ×2 (08:51→21:34)
[2017-08-13] MEDS: Allopurinol TAB* 100 MG PO SCH (08:53)
[2017-08-13] MEDS: Hydroxychloroquine TAB* 200 MG PO SCH (08:53)
[2017-08-13] MEDS ORDERED: predniSONE TAB* 5 MG PO SCH (09:00)
[2017-08-13] MEDS ORDERED: Potassium Chlor TAB* 10 MEQ TAB.ER PO ONE (11:57)
--- NOTE | 2017-08-13 13:09 | PN ---
Subjective Date of Service: 08/13/17 Interval History: C/o cough, productive , mild shortness of breath. Denies chest pain or abd pain , denies n/v/d Family History: Unchanged from Admission Social History: Unchanged from Admission Past Medical History: Unchanged from Admission Objective Active Medications: Acetaminophen (Tylenol Tab*) 650 mg PO Q4H PRN PRN Reason: FEVER/PAIN Albuterol (Ventolin 2.5 Mg/3 Ml Neb.Nikole*) 2.5 mg INH Q2H PRN PRN Reason: SOB/WHEEZING Allopurinol (Zyloprim Tab*) 100 mg PO DAILY [facility] Last Admin: 08/13/17 08:53 Dose: 100 mg Colchicine (Colcrys*) 0.6 mg PO QAM [facility] Last Admin: 08/13/17 08:50 Dose: 0.6 mg Dabigatran (Pradaxa Cap(Nf)) 75 mg PO BID [facility] Last Admin: 08/13/17 08:50 Dose: 75 mg Dextrose (D50w Syringe 50 Ml*) 12.5 gm IV PUSH .FOR FS < 60 - SS PRN PRN Reason: FS < 60 Fentanyl (Duragesic Patch 50 Mcg/Hr*) 50 mcg TRANSDERM Q72H [facility] Last Admin: 08/12/17 22:30 Dose: 50 mcg Hydroxychloroquine Sulfate (Plaquenil Tab*) 400 mg PO DAILY [facility] Last Admin: 08/13/17 08:53 Dose: 400 mg Levofloxacin/Dextrose (Levaquin 750 Mg Ivpremix(*)) 750 mg in 150 mls @ 100 mls /hr IVPB Q24H [facility] Sodium Chloride (Ns 0.9% 1000 Ml*) 1,000 mls @ 75 mls/hr IV PER RATE [facility] Last Admin: 08/12/17 20:27 Dose: 75 mls/hr Insulin Human Lispro (Humalog*) 0 units SUBCUT AC [facility] PRN Reason: Protocol Last Admin: 08/13/17 12:52 Dose: 6 units Levothyroxine Sodium (Synthroid Tab*) 150 mcg PO 0600 [facility] Last Admin: 08/13/17 06:58 Dose: 150 mcg Ondansetron HCl (Zofran Inj*) 4 mg IV Q6H PRN PRN Reason: NAUSEA Pharmacy Profile Note (Fentanyl Patch Check Q Shift) 1 note N/A 0700,1900 [facility] Last Admin: 08/13/17 07:26 Dose: 1 note Prednisone (Deltasone Tab*) 60 mg PO DAILY [facility] Last Admin: 08/13/17 08:51 Dose: 60 mg Pregabalin (Lyrica Cap(*)) 50 mg PO BID [facility] Last Admin: 08/13/17 08:51 Dose: 50 mg Vital Signs - 8 hr 08/13/17 08/13/17 08/13/17 05:17 05:25 06:03 Temperature Pulse Rate 85 92 87 Respiratory Rate Blood Pressure 129/58 144/74 (mmHg) O2 Sat by Pulse 94 93 Oximetry 08/13/17 08/13/17 08/13/17 06:43 06:55 07:29 Temperature Pulse Rate 93 85 Respiratory 18 18 Rate Blood Pressure 144/74 (mmHg) O2 Sat by Pulse 94 Oximetry 08/13/17 08/13/17 08/13/17 07:30 07:32 08:00 Temperature 98.8 F Pulse Rate 87 Respiratory 20 20 Rate Blood Pressure 126/56 (mmHg) O2 Sat by Pulse 94 95 Oximetry 08/13/17 08/13/17 08:51 11:21 Temperature 98.3 F Pulse Rate 90 Respiratory 20 20 Rate Blood Pressure 132/48 (mmHg) O2 Sat by Pulse 94 Oximetry Oxygen Devices in Use Now: None Appearance: appears comfortable resting in bed, no respiratory distress noted Eyes: No Scleral Icterus Ears/Nose/Mouth/Throat: Clear Oropharnyx, Mucous Membranes Moist Neck: NL Appearance and Movements; NL JVP, Trachea Midline Respiratory: Symmetrical Chest Expansion and Respiratory Effort - diminished t/ o bilat Cardiovascular: NL Sounds; No Murmurs; No JVD, No Edema Abdominal: NL Sounds; No Tenderness; No Distention Extremities: No Edema, No Clubbing, Cyanosis Skin: No Rash or Ulcers Neurological: - - confused to place and time, oriented to self Nutrition: Taking PO's Result Diagrams: 08/13/17 04:59 08/13/17 09:39 Microbiology and Other Data: Microbiology 08/12/17 23:47 Gram Stain - Final Sputum 08/13/17 05:15 Nasal Screen MRSA (PCR)(ADELINA) - Final Nasal Mrsa Not Detected 08/13/17 03:37 Legionella Urinary Antigen - Final Urine Negative Legionella Streptococcus pneumoniae Ag Screen - Final Negative S. pneumo Antigen Assess/Plan/Problems-Billing Assessment: Ms. Perla is a 89 y.o female that presented to the emergency room productive cough for 1 week, no documented fevers and questionable syncopal episode vs not remembering do to her dementia. - Patient Problems (1) Productive cough Current Visit: Yes Status: Acute Code(s): R05 - COUGH SNOMED Code(s): 13384347 Comment: suspect this is related to early pneumonia given the lenght of time of the cough and green sputum production. Will contiue levaquin will continue to monitor respirtory status. (2) Hypokalemia Current Visit: Yes Status: Acute Code(s): E87.6 - HYPOKALEMIA SNOMED Code( s): 88797792 Comment: potassium level 3.2 today will give potassium 40 meq today and repeat labs tomorrow (3) Afib Current Visit: No Status: Acute Code(s): I48.91 - UNSPECIFIED ATRIAL FIBRILLATION SNOMED Code(s): 73867241 Comment: Rate controlled. Continue Pradaxa. (4) CAD (coronary artery disease) Current Visit: No Status: Acute Code(s): I25.10 - ATHSCL HEART DISEASE OF [place] CORONARY ARTERY W/O ANG PCTRS SNOMED Code(s): 57894882 Comment: Continue atorvastatin. Trop stable ~ was initally elevated at 0.06 and repeat troponins were 0.02 and 0.03, pt asymptomatic. (5) GERD (gastroesophageal reflux disease) Current Visit: No Status: Acute Code(s): K21.9 - GASTRO-ESOPHAGEAL REFLUX DISEASE WITHOUT ESOPHAGITIS SNOMED Code(s): 567976190 Comment: Continue PPI (6) Hypertension Current Visit: No Status: Acute Code(s): I10 - ESSENTIAL (PRIMARY) HYPERTENSION SNOMED Code(s): 36316004 Comment: SBP 130s. Continue lisinopril. (7) Hypothyroidism Current Visit: No Status: Acute Code(s): E03.9 - HYPOTHYROIDISM, UNSPECIFIED SNOMED Code(s): 39286864 Comment: Continue synthroid. (8) Diabetes Current Visit: No Status: Chronic Code(s): E11.9 - TYPE 2 DIABETES MELLITUS WITHOUT COMPLICATIONS SNOMED Code(s): 01852230 Comment: BGs well controlled. Check BGs q AC with Lispro SSI. (9) Systolic CHF, chronic Current Visit: No Status: Chronic Code(s): I50.22 - CHRONIC SYSTOLIC ( CONGESTIVE) HEART FAILURE SNOMED Code(s): 303475110 Comment: - No SOB or S+S of overload. - will restart bumetadine - Continue Daily weights and I/Os. - continue to monitor closely. (10) DVT prophylaxis Current Visit: No Status: Acute Code(s): TDM6693 - SNOMED Code(s): 481094828 Comment: Laine (11) DNR (do not resuscitate) Current Visit: No Status: Acute Status and Disposition: inpatient will continue to monitor
[2017-08-13] MEDS ORDERED: Levofloxacin 750 MG IVPREMIX(* 750 MG/150 ML BAG IVPB SCH (18:00)
[2017-08-13] MEDS ORDERED: Bumetanide TAB* 2 MG PO SCH (21:00)
[2017-08-14] MEDS: Levothyroxine TAB* 150 MCG TAB PO SCH (05:38)
[2017-08-14] MEDS: fentaNYL Patch Check Q Shift 1 NOTE SCH ×2 (07:22→18:38)
[2017-08-14] MEDS: Insulin LISPRO* 1 UNITS UNIT SUBCUT SCH ×3 (08:06→17:11)
[2017-08-14] MEDS: Pregabalin CAP(*) 50 MG PO SCH ×2 (09:01→21:10)
[2017-08-14] MEDS: Bumetanide TAB* 2 MG PO SCH ×2 (09:02→21:10)
[2017-08-14] MEDS: Hydroxychloroquine TAB* 200 MG PO SCH (09:02)
[2017-08-14] MEDS: predniSONE TAB* 20 MG PO SCH (09:02)
[2017-08-14] MEDS: CMCS Dabigatran CAP(NF) 75 MG CAP PO SCH ×2 (09:02→21:10)
[2017-08-14] MEDS: Allopurinol TAB* 100 MG PO SCH (09:02)
[2017-08-14] MEDS: Colchicine* 0.6 MG TAB PO SCH (09:02)
--- NOTE | 2017-08-14 12:49 | PN ---
Subjective Date of Service: 08/14/17 Interval History: Sitting in bed no complaints. Denies chest pain or shortness of breath. Denies abd pain or n/v/d. Family History: Unchanged from Admission Social History: Unchanged from Admission Past Medical History: Unchanged from Admission Objective Active Medications: Acetaminophen (Tylenol Tab*) 650 mg PO Q4H PRN PRN Reason: FEVER/PAIN Albuterol (Ventolin 2.5 Mg/3 Ml Neb.Nikole*) 2.5 mg INH Q2H PRN PRN Reason: SOB/WHEEZING Allopurinol (Zyloprim Tab*) 100 mg PO DAILY [facility] Last Admin: 08/14/17 09:02 Dose: 100 mg Bumetanide (Bumex Tab*) 2 mg PO BID [facility] Last Admin: 08/14/17 09:02 Dose: 2 mg Colchicine (Colcrys*) 0.6 mg PO QAM [facility] Last Admin: 08/14/17 09:02 Dose: 0.6 mg Dabigatran (Pradaxa Cap(Nf)) 75 mg PO BID [facility] Last Admin: 08/14/17 09:02 Dose: 75 mg Dextrose (D50w Syringe 50 Ml*) 12.5 gm IV PUSH .FOR FS < 60 - SS PRN PRN Reason: FS < 60 Fentanyl (Duragesic Patch 50 Mcg/Hr*) 50 mcg TRANSDERM Q72H [facility] Last Admin: 08/12/17 22:30 Dose: 50 mcg Hydroxychloroquine Sulfate (Plaquenil Tab*) 400 mg PO DAILY [facility] Last Admin: 08/14/17 09:02 Dose: 400 mg Levofloxacin/Dextrose (Levaquin 750 Mg Ivpremix(*)) 750 mg in 150 mls @ 100 mls /hr IVPB Q48H [facility] Insulin Human Lispro (Humalog*) 0 units SUBCUT AC [facility] PRN Reason: Protocol Last Admin: 08/14/17 08:06 Dose: 2 units Levothyroxine Sodium (Synthroid Tab*) 150 mcg PO 0600 [facility] Last Admin: 08/14/17 05:38 Dose: 150 mcg Ondansetron HCl (Zofran Inj*) 4 mg IV Q6H PRN PRN Reason: NAUSEA Pharmacy Profile Note (Fentanyl Patch Check Q Shift) 1 note N/A 0700,1900 [facility] Last Admin: 08/14/17 07:22 Dose: 1 note Prednisone (Deltasone Tab*) 60 mg PO DAILY [facility] Last Admin: 08/14/17 09:02 Dose: 60 mg Pregabalin (Lyrica Cap(*)) 50 mg PO BID [facility] Last Admin: 08/14/17 09:01 Dose: 50 mg Vital Signs - 8 hr 08/14/17 08/14/17 08/14/17 07:27 07:34 08:00 Temperature 97.4 F Pulse Rate 61 80 Respiratory 20 19 19 Rate Blood Pressure 127/88 (mmHg) O2 Sat by Pulse 95 92 92 Oximetry 08/14/17 08/14/17 09:01 10:46 Temperature Pulse Rate Respiratory 20 20 Rate Blood Pressure (mmHg) O2 Sat by Pulse Oximetry Oxygen Devices in Use Now: None Appearance: apperas comfortable sitting in bed Eyes: No Scleral Icterus Ears/Nose/Mouth/Throat: Clear Oropharnyx, Mucous Membranes Moist Neck: NL Appearance and Movements; NL JVP, Trachea Midline Respiratory: Symmetrical Chest Expansion and Respiratory Effort, - - few scattered rhonchi t/o bilat, occassional moist cough noted Cardiovascular: NL Sounds; No Murmurs; No JVD Abdominal: NL Sounds; No Tenderness; No Distention Extremities: No Clubbing, Cyanosis, - - lower ext with mild swelling Skin: No Rash or Ulcers Neurological: - - confused to place and time, oriented to name and date Nutrition: Taking PO's Result Diagrams: 08/13/17 04:59 08/13/17 09:39 Microbiology and Other Data: Microbiology 08/12/17 23:47 Gram Stain - Final Sputum 08/13/17 05:15 Nasal Screen MRSA (PCR)(ADELINA) - Final Nasal Mrsa Not Detected 08/13/17 03:37 Legionella Urinary Antigen - Final Urine Negative Legionella Streptococcus pneumoniae Ag Screen - Final Negative S. pneumo Antigen Assess/Plan/Problems-Billing Assessment: Ms. Perla is a 89 y.o female that presented to the emergency room productive cough for 1 week, no documented fevers and questionable syncopal episode vs not remembering do to her dementia. - Patient Problems (1) Productive cough Current Visit: Yes Status: Acute Code(s): R05 - COUGH SNOMED Code(s): 73967476 Comment: suspect this is related to early pneumonia given the lenght of time of the cough and green/yellow sputum production. Will contiue levaquin will continue to monitor respirtory status. (2) Hypokalemia Current Visit: Yes Status: Acute Code(s): E87.6 - HYPOKALEMIA SNOMED Code( s): 29165103 Comment: potassium level 3.2 today will give potassium 40 meq today and repeat labs tomorrow (3) Afib Current Visit: No Status: Acute Code(s): I48.91 - UNSPECIFIED ATRIAL FIBRILLATION SNOMED Code(s): 51165554 Comment: Rate controlled. Continue Pradaxa. (4) CAD (coronary artery disease) Current Visit: No Status: Acute Code(s): I25.10 - ATHSCL HEART DISEASE OF [place] CORONARY ARTERY W/O ANG PCTRS SNOMED Code(s): 06977412 Comment: Continue atorvastatin. Trop stable ~ was initally elevated at 0.06 and repeat troponins were 0.02 and 0.03, pt asymptomatic. (5) GERD (gastroesophageal reflux disease) Current Visit: No Status: Acute Code(s): K21.9 - GASTRO-ESOPHAGEAL REFLUX DISEASE WITHOUT ESOPHAGITIS SNOMED Code(s): 697037212 Comment: Continue PPI (6) Hypertension Current Visit: No Status: Acute Code(s): I10 - ESSENTIAL (PRIMARY) HYPERTENSION SNOMED Code(s): 46063697 Comment: SBP 130s. Continue lisinopril. (7) Hypothyroidism Current Visit: No Status: Acute Code(s): E03.9 - HYPOTHYROIDISM, UNSPECIFIED SNOMED Code(s): 26793604 Comment: Continue synthroid. (8) Diabetes Current Visit: No Status: Chronic Code(s): E11.9 - TYPE 2 DIABETES MELLITUS WITHOUT COMPLICATIONS SNOMED Code(s): 57234502 Comment: BGs well controlled. Check BGs q AC with Lispro SSI. (9) Systolic CHF, chronic Current Visit: No Status: Chronic Code(s): I50.22 - CHRONIC SYSTOLIC ( CONGESTIVE) HEART FAILURE SNOMED Code(s): 290756986 Comment: - No SOB or S+S of overload. - will restart bumetadine - Continue Daily weights and I/Os. - continue to monitor closely. (10) UTI (urinary tract infection) Current Visit: No Status: Acute Comment: With chronic indwelling Brown Brown [facility] Will add augmentin to cover ~ resistent to levaquin (11) DVT prophylaxis Current Visit: No Status: Acute Code(s): JFS3498 - SNOMED Code(s): 793515347 Comment: Laine (12) DNR (do not resuscitate) Current Visit: No Status: Acute Status and Disposition: inpatient will continue to monitor
[2017-08-14 15:10] LABS: EGFR Non-African American 50.5 (>60)
[2017-08-14] MEDS ORDERED: Levofloxacin 750 MG IVPREMIX(* 750 MG/150 ML BAG IVPB SCH (18:00)
[2017-08-14] MEDS: Amoxicillin/Clavulanate TAB* 500 MG PO SCH (21:10)
[2017-08-15] MEDS: Levothyroxine TAB* 150 MCG TAB PO SCH (05:26)
[2017-08-15 05:58] LABS: Hematocrit 40 % (35-47); Hemoglobin 13.2 g/dl (12.0-16.0); Mean Corpuscular HGB Conc 33 g/dl (31-36); Mean Corpuscular Hemoglobin 31 pg (27-31); Mean Corpuscular Volume 94 fL (80-97); Mean Platelet Volume 8 um3 (7.4-10.4); Platelet Count 163 10^3/ul (150-450); Red Blood Count 4.24 10^6/ul (4.0-5.4); Red Cell Distribution Width 15 % (10.5-15); White Blood Count 10.4 10^3/ul (3.5-10.8)
[2017-08-15 06:14] LABS: ABS Basophils 0.1 10^3/ul (0-0.2); ABS Eosinophils 0 10^3/ul (0-0.6); ABS Lymphocytes 1.2 10^3/ul (1.0-4.8); ABS Monocytes 0.2 10^3/ul (0-0.8); ABS Neutrophils 9.4 10^3/ul (1.5-7.7); ABS Nucleated RBC 0 10^3/ul; Eosinophil % 0.3 % (0-6); Lymphocyte % 10.9 % (25-47); Nucleated Red Blood Cells % 0
[2017-08-15 06:15] LABS: EGFR Non-African American 51.6 (>60)
[2017-08-15] MEDS: Insulin LISPRO* 1 UNITS UNIT SUBCUT SCH ×2 (09:37→12:17)
[2017-08-15] MEDS: CMCS Dabigatran CAP(NF) 75 MG CAP PO SCH (09:52)
[2017-08-15] MEDS: Pregabalin CAP(*) 50 MG PO SCH (09:52)
[2017-08-15] MEDS: Amoxicillin/Clavulanate TAB* 500 MG PO SCH (09:52)
[2017-08-15] MEDS: Bumetanide TAB* 2 MG PO SCH (09:52)
[2017-08-15] MEDS: Colchicine* 0.6 MG TAB PO SCH (09:53)
[2017-08-15] MEDS: Hydroxychloroquine TAB* 200 MG PO SCH (09:53)
[2017-08-15] MEDS: predniSONE TAB* 20 MG PO SCH (09:53)
[2017-08-15] MEDS: Allopurinol TAB* 100 MG PO SCH (09:53)
[2017-08-15] MEDS: fentaNYL Patch Check Q Shift 1 NOTE SCH (09:54)
--- NOTE | 2017-08-15 12:59 | PN ---
Subjective Date of Service: 08/15/17 Interval History: Patient seen and examined at bedside. Pt reports subjective fevers, chills, and mild shortness of breath. Denies chest discomfort, N/V. Pt reports diarrhea. Tele: Afib/paced, rate 60-70's Family History: Unchanged from Admission Social History: Unchanged from Admission Past Medical History: Unchanged from Admission Objective Active Medications: Acetaminophen (Tylenol Tab*) 650 mg PO Q4H PRN Reason: FEVER/PAIN Albuterol (Ventolin 2.5 Mg/3 Ml Neb.Nikole*) 2.5 mg INH Q2H PRN Reason: SOB/ WHEEZING Allopurinol (Zyloprim Tab*) 100 mg PO DAILY [facility] Amoxicillin/Clavulanate Potassium (Augmentin Tab*) 500 mg PO BID [facility] Bumetanide (Bumex Tab*) 2 mg PO BID [facility] Colchicine (Colcrys*) 0.6 mg PO QAM [facility] Dabigatran (Pradaxa Cap(Nf)) 75 mg PO BID [facility] Dextrose (D50w Syringe 50 Ml*) 12.5 gm IV PUSH .FOR FS < 60 - SS PRN Reason: FS < 60 Fentanyl (Duragesic Patch 50 Mcg/Hr*) 50 mcg TRANSDERM Q72H [facility] Hydroxychloroquine Sulfate (Plaquenil Tab*) 400 mg PO DAILY [facility] Levofloxacin/Dextrose (Levaquin 750 Mg Ivpremix(*)) 750 mg in 150 mls @ 100 mls /hr IVPB Q48H [facility] Insulin Human Lispro (Humalog*) 0 units SUBCUT AC [facility] Levothyroxine Sodium (Synthroid Tab*) 150 mcg PO 0600 [facility] Ondansetron HCl (Zofran Inj*) 4 mg IV Q6H PRN Reason: NAUSEA Pharmacy Profile Note (Fentanyl Patch Check Q Shift) 1 note N/A 0700,1900 [facility] Prednisone (Deltasone Tab*) 60 mg PO DAILY [facility] Pregabalin (Lyrica Cap(*)) 50 mg PO BID [facility] Vital Signs - 8 hr 08/15/17 08/15/17 08/15/17 07:30 08:00 09:52 Temperature 97.4 F Pulse Rate 78 Respiratory 12 18 16 Rate Blood Pressure 151/70 (mmHg) O2 Sat by Pulse 96 96 Oximetry 08/15/17 11:23 Temperature 97.5 F Pulse Rate 75 Respiratory 20 Rate Blood Pressure 119/82 (mmHg) O2 Sat by Pulse 98 Oximetry Oxygen Devices in Use Now: None Appearance: NAD, laying in bed Ears/Nose/Mouth/Throat: Mucous Membranes Moist Respiratory: Symmetrical Chest Expansion and Respiratory Effort, - - Crackles and diminished in the bases Cardiovascular: NL Sounds; No Murmurs; No JVD, RRR Abdominal: NL Sounds; No Tenderness; No Distention Extremities: - - Mild bilateral LE edema Neurological: Alert and Oriented x 3, NL Muscle Strength and Tone Lines/Tubes/Other Access: Clean, Dry and Intact Peripheral IV - site benign Nutrition: Taking PO's Result Diagrams: 08/15/17 05:26 08/15/17 09:13 Microbiology and Other Data: Microbiology 08/12/17 23:47 Gram Stain - Final Sputum 08/13/17 05:15 Nasal Screen MRSA (PCR)(ADELINA) - Final Nasal Mrsa Not Detected 08/13/17 03:37 Legionella Urinary Antigen - Final Urine Negative Legionella Streptococcus pneumoniae Ag Screen - Final Negative S. pneumo Antigen Assess/Plan/Problems-Billing Assessment: Ms. Perla is an 89 y.o female that presented to the emergency room with complaints of a productive cough for 1 week, no documented fevers and questionable syncopal episode vs not remembering do to her dementia. - Patient Problems (1) UTI (urinary tract infection) Comment: - With chronic indwelling Brown - Brown was changed on 08/10 at the residential - Continue augmentin, resistent to levaquin (2) Pneumonia Code(s): J18.9 - PNEUMONIA, UNSPECIFIED ORGANISM SNOMED Code(s): 525963858 Comment: - Afebrile and no leukocytosis - Suspect early PNA given length of time of the cough and green/yellow sputum production - Blood cultures, no growth day 2 - Continue Augmentin (3) Hypokalemia Code(s): E87.6 - HYPOKALEMIA SNOMED Code(s): 90838715 Comment: - Resolved (4) Afib Code(s): I48.91 - UNSPECIFIED ATRIAL FIBRILLATION SNOMED Code(s): 67396608 Comment: - Rate controlled - Continue Pradaxa (5) CAD (coronary artery disease) Code(s): I25.10 - ATHSCL HEART DISEASE OF [place] CORONARY ARTERY W/O ANG PCTRS SNOMED Code(s): 00033400 Comment: - Asymptomatic - Troponin 0.06, 0.02 and 0.03 - Suspect elevated troponin is secondary to demand ischemia - Continue atorvastatin (6) CKD (chronic kidney disease), stage III Code(s): N18.3 - CHRONIC KIDNEY DISEASE, STAGE 3 (MODERATE) SNOMED Code(s): 255185057 Comment: - Stage III - Creatinine at baseline (7) Chronic pain Code(s): G89.29 - OTHER CHRONIC PAIN SNOMED Code(s): 04502820 Comment: - Secondary to arthritis - Continue home fentanyl patch and Lyrica (8) Dementia Code(s): F03.90 - UNSPECIFIED DEMENTIA WITHOUT BEHAVIORAL DISTURBANCE SNOMED Code(s): 27200138 Comment: - Supportive care (9) GERD (gastroesophageal reflux disease) Code(s): K21.9 - GASTRO-ESOPHAGEAL REFLUX DISEASE WITHOUT ESOPHAGITIS SNOMED Code(s): 523622603 Comment: - Continue PPI (10) Hypertension Code(s): I10 - ESSENTIAL (PRIMARY) HYPERTENSION SNOMED Code(s): 41705291 Comment: - Mostly normotenisve, SBP 110-140s (11) Hypothyroidism Code(s): E03.9 - HYPOTHYROIDISM, UNSPECIFIED SNOMED Code(s): 79511310 Comment: - TSH 1.01 06/2017 - Continue synthroid (12) Diabetes Code(s): E11.9 - TYPE 2 DIABETES MELLITUS WITHOUT COMPLICATIONS SNOMED Code(s) : 72960855 Comment: - Glucose 170-360s - Continue glucose checks AC and Lispro SS (13) Systolic CHF, chronic Code(s): I50.22 - CHRONIC SYSTOLIC (CONGESTIVE) HEART FAILURE SNOMED Code(s): 371808968 Comment: - No SOB or S+S of overload. - Continue Daily weights and I/Os. - Continu bumetadine (14) Rheumatoid arthritis Code(s): M06.9 - RHEUMATOID ARTHRITIS, UNSPECIFIED SNOMED Code(s): 24571155 Comment: - Continue Plaquenil and Prednisone (15) Gout Code(s): M10.9 - GOUT, UNSPECIFIED SNOMED Code(s): 63047708 Comment: - Continue colchicine and allopurinol (16) DVT prophylaxis Code(s): RED5575 - SNOMED Code(s): 868893803 Comment: - Laine (17) DNR (do not resuscitate) Status and Disposition: Inpatient. Stable for discharge back to [facility].
--- NOTE | 2017-08-15 14:59 | DS ---
CC: Davon Perkins* DATE OF ADMISSION: 08/12/2017. DATE OF DISCHARGE: 08/15/2017. ATTENDING PHYSICIAN: Dr. Sharon Julio* (dictated by Chani Gibson NP). PRIMARY CARE PROVIDER: Davon Perkins. PRIMARY DIAGNOSES: 1. Community acquired pneumonia. 2. E. coli urinary tract infection. 3. Hypertroponemia, suspect secondary to demand ischemia. SECONDARY DIAGNOSES: 1. Hyperlipidemia. 2. History of pulmonary embolism. 3. Cerebrovascular accident. 4. Coronary artery disease. 5. GERD. 6. Diabetes mellitus. 7. Chronic kidney disease, stage 3. 8. Neurogenic bladder. 9. Hypothyroidism. 10. Chronic pain. 11. Atrial fibrillation. STUDIES DONE WHILE IN THE HOSPITAL: 1. Chest x-ray, 08/12/2017: Radiologist's impression: Mild bibasilar hypoventilation. No definite infiltrates. 2. Brain CT, 08/12/2017: Radiologist's impression: No acute intracranial findings. Atrophy with chronic microvascular ischemic change. Right frontal scalp hematoma. DISCHARGE MEDICATIONS: New home medication: Augmentin 500 mg oral twice daily for 9 more days. Changed home medications: 1. Prednisone taper take 50 mg oral daily for 3 days starting on 08/16/2017, followed by 40 mg oral daily for 3 days, followed by 30 mg oral daily for 3 days , followed by 20 mg oral daily for 3 days, then decrease to the patient's baseline of 15 mg oral daily. 2. Guaifenesin 30 ml twice daily as needed for cough. Continued home medications: 1. Pradaxa 75 mg twice daily. 2. Fentanyl patch 500 mcg transdermal every 72 hours. 3. Levothyroxine 150 mcg oral daily. 4. Bumex 2 mg oral twice daily. 5. Senna S two tablets oral twice daily. 6. Potassium Chloride 40 mEq oral daily. 7. Plaquenil 400 mg oral daily. 8. Nature's Tears eye drops one drop to both eyes twice daily. 9. MiraLax 17 gm oral daily. 10. Lyrica 50 mg oral twice daily. 11. DuoNeb one neb 3 times daily as needed for shortness of breath. 12. Mylanta 30 ml oral daily as needed for indigestion. 13. Colchicine 0.6 mg oral every morning. 14. Vitamin D 50,000 units oral twice monthly. 15. Allopurinol 100 mg oral daily. 16. Acetaminophen 1,000 mg oral twice daily as needed for pain. HISTORY OF PRESENT ILLNESS/HOSPITAL COURSE: Ms. Reina is an 89-year-old female with a past medical history significant for atrial fibrillation, obesity , ELDA who does not wear a CPAP, hypertension, history of pulmonary embolism, chronic anticoagulation, CVA, CAD, GERD, diabetes, chronic kidney disease, neurogenic bladder with chronic indwelling Brown, hypothyroidism, and mild dementia who presented to the emergency room with complaints of cough that had a productive mucopurulent type sputum. She also felt that she was more short of breath with minimal exertion than her baseline. She reported an episode of vomiting. She denied any abdominal pain. She resides at [facility] where the residents have been on prophylactic Tamiflu. She was brought to the emergency room for further evaluation. While in the emergency room, it was felt that the patient had an early pneumonia. She has a mild leukocytosis and a lactic acid of 3.3. She had an elevated troponin of 0.06. The Hospitalists were asked to evaluate the patient for admission. While in the hospital, the patient was treated with Levaquin for her pneumonia. Her urine grew E. coli. She was started on Augmentin as it was resistant to Levaquin. Her leukocytosis resolved. She has been afebrile. The patient continued to complain of mild shortness of breath. It is unclear what her baseline breathing status is. She has no signs of respiratory distress. She was not requiring supplemental oxygen. She had a mildly elevated calcium as suspected to be secondary to dehydration. This has slightly improved with hydration. There was a possible question of syncope, but the patient could not remember and was found to have a frontal hematoma from her fall. 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 Ms. Perla is stable for discharge to [facility] today. Vital signs are as follows: Temperature 97.5, heart rate 75, respiratory rate 20, O2 sat 98 percent on room air, blood pressure 119/82. DISCHARGE PLAN: Ms. Perla will be discharged back to [facility]. In regards to her pneumonia, she has received four days of IV Levaquin and will be continued on Augmentin as that will cover her UTI. In terms of her UTI, she should be continued on Augmentin for nine more days to complete a ten day course. She had her urinary catheter recently changed at the long-term. Her Prednisone was increased and this should be tapered every three days until she returns back to her 15 mg daily dose. She should be seen in follow-up by a provider at [facility] in the next week per their protocol. She should return to the emergency room for any increased shortness of breath or chest pain. ACTIVITY: As tolerated. DIET: She should be on a heart healthy, consistent carbohydrate diet. This is a summarized report of a complex medical history and hospital stay. For further details, please see the entire medical record. Time for this discharge was approximately 50 minutes, greater than half of that was spent with the patient discussing discharge plans and instructions. CONDITION ON DISCHARGE: Stable. CHANI GIBSON NP [id number]/SRIRAM #: [id number] JESSICA
[2017-08-15 15:19] VITALS: BP 138/60
== END 2017-08-15 16:05 | DRG 194 ==
LOC: ED 15:32 → MEDTELE 19:00
PROVIDERS: ADMIT Pediatrics; ATTEND Hospitalist
DX: J18.9 Pneumonia, unspecified organism (principal); I13.0 Hypertensive heart and chronic kidney disease with heart failure and stage 1 through stage 4 chronic kidney disease, or unspecified chronic kidney disease; E11.22 Type 2 diabetes mellitus with diabetic chronic kidney disease; I48.91 Unspecified atrial fibrillation; I24.8 Other forms of acute ischemic heart disease; I50.22 Chronic systolic (congestive) heart failure; N31.9 Neuromuscular dysfunction of bladder, unspecified; E03.9 Hypothyroidism, unspecified; G43.909 Migraine, unspecified, not intractable, without status migrainosus; N39.0 Urinary tract infection, site not specified; F03.90 Unspecified dementia, unspecified severity, without behavioral disturbance, psychotic disturbance, mood disturbance, and anxiety; E66.9 Obesity, unspecified; G47.33 Obstructive sleep apnea (adult) (pediatric); K21.9 Gastro-esophageal reflux disease without esophagitis; G89.29 Other chronic pain; Z66 Do not resuscitate; M06.9 Rheumatoid arthritis, unspecified; E87.6 Hypokalemia; E78.00 Pure hypercholesterolemia, unspecified; J45.909 Unspecified asthma, uncomplicated; M19.90 Unspecified osteoarthritis, unspecified site; M81.0 Age-related osteoporosis without current pathological fracture; N18.3 Chronic kidney disease, stage 3 (moderate); H91.90 Unspecified hearing loss, unspecified ear; W05.0XXA Fall from non-moving wheelchair, initial encounter; S00.83XA Contusion of other part of head, initial encounter; S61.411A Laceration without foreign body of right hand, initial encounter; M10.9 Gout, unspecified; B96.20 Unspecified Escherichia coli [E. coli] as the cause of diseases classified elsewhere; Z16.23 Resistance to quinolones and fluoroquinolones; S00.03XA Contusion of scalp, initial encounter; I25.10 Atherosclerotic heart disease of native coronary artery without angina pectoris; R55 Syncope and collapse; Z96.653 Presence of artificial knee joint, bilateral; Z98.84 Bariatric surgery status; Z95.5 Presence of coronary angioplasty implant and graft; Z88.2 Allergy status to sulfonamides; Z86.711 Personal history of pulmonary embolism; I25.2 Old myocardial infarction; Z95.0 Presence of cardiac pacemaker; Z88.8 Allergy status to other drugs, medicaments and biological substances; Z88.1 Allergy status to other antibiotic agents; Z91.041 Radiographic dye allergy status; Z82.49 Family history of ischemic heart disease and other diseases of the circulatory system; Z99.3 Dependence on wheelchair; Z90.49 Acquired absence of other specified parts of digestive tract; Z97.4 Presence of external hearing-aid; Z86.73 Personal history of transient ischemic attack (TIA), and cerebral infarction without residual deficits; Z83.3 Family history of diabetes mellitus; Z86.19 Personal history of other infectious and parasitic diseases; Y92.009 Unspecified place in unspecified non-institutional (private) residence as the place of occurrence of the external cause; Z79.52 Long term (current) use of systemic steroids
CPT/HCPCS: 36415; 70450; 71045; 80048; 80053; 81003; 81015; 83605; 84484; 85025; 85610; 85730; 87040; 87070; 87077; 87086; 87184; 87186; 87205; 87502; 87641; 87899; 93005; 94640; 94760; 99284; A9270-GY; J0692; J7512